=== PATIENT | female | born 1935 | race Caucasian/White ===

== ENCOUNTER → 2016-08-15 11:08 | Outpatient (CLI) | payer MEDICARE, OTHER ==
[2016-05-07 14:14] VITALS: BMI 29.8
[~2016-08-15 11:08] MED LIST: ATIVAN1 MG PO; CELEXA10 MG PO; CELEXA40 MG PO; DILAUDID2 MG PO; FLAGYL500 MG PO; LEVAQUIN500 MG PO; MOBIC7.5 MG PO; MULTIPLE VITAMI1 TA1 PO; PERCOCET 5/3251 TA1 PO; PRILOSEC20 MG PO; ULTRAM50 MG PO; VITAMIN E PO; XARELTO15 MG PO; XARELTO20 MG PO; ZOFRAN ODT4 MG/UDTAB PO
== END | disposition home or self-care (01) ==
LOC: D.MRI 11:08
DX: M75.102 Unspecified rotator cuff tear or rupture of left shoulder, not specified as traumatic (principal)

== ENCOUNTER 2016-11-05 10:47 | Outpatient (CLI) | payer MEDICARE, OTHER ==
[~2016-11-05] VITALS: Ht 170.2 cm; Wt 86.4 kg
[2016-11-05] MEDS ORDERED: CYMBALTA60 MG PO (11:11)
[2016-11-05 11:19] VITALS: BP 127/76; Ht 170.2 cm; Wt 86.4 kg
== END 2016-11-05 11:32 | disposition home or self-care (01) ==
LOC: D.OPS 10:47
DX: M81.0 Age-related osteoporosis without current pathological fracture (principal)

== ENCOUNTER 2017-05-12 12:17 | Outpatient (CLI) | payer MEDICARE, OTHER ==
[~2017-05-12] VITALS: Ht 170.2 cm; Wt 86.4 kg
[~2017-05-12 12:17] MED LIST changes: +CYMBALTA60 MG PO
[2017-05-12] MEDS ORDERED: ATIVAN1 MG PO (12:38)
[2017-05-12] MEDS ORDERED: CELEXA20 MG PO (12:38)
[2017-05-12 12:39] VITALS: BP 130/83; Ht 170.2 cm; Wt 86.4 kg
== END 2017-05-12 12:56 | disposition home or self-care (01) ==
LOC: D.OPS 12:17
DX: M81.0 Age-related osteoporosis without current pathological fracture (principal)

== ENCOUNTER 2017-10-03 19:05 | Inpatient (IN) | payer MEDICARE, OTHER ==
[~2017-10-03] VITALS: Ht 170.2 cm; Wt 88.2 kg
[~2017-10-03 19:05] MED LIST changes: +CELEXA20 MG PO
[2017-10-03 19:37] LABS: BASOPHILS 0.2 % (0-2); EOSINOPHILS 1.6 % (0-7); HEMOGLOBIN 15.5 g/dL (12-16); IMMATURE GRANULOCYTES 0.2 % (0-5); LYMPHOCYTES 29.6 % (15-50); MCH 33.2 pg (26.0-34.0); MCHC 34.4 g/dL (31.0-37.0); MCV 96.4 fL (80.0-100.0); MEAN PLATELET VOLUME 10.9 fL (7.4-10.4); MONOCYTES 7.9 % (2-11); NEUTROPHILS 60.5 % (40-80); PLATELET COUNT 158 10x3/uL (130-400); RBC 4.67 10x6/uL (4.00-5.40); RDW 12.5 % (11.5-14.5); WBC 5.5 10x3/uL (4.8-10.8)
[2017-10-03 19:39] LABS: APPEARANCE CLEAR (CLEAR); BILIRUBIN NEGATIVE (NEGATIVE); COLOR STRAW (YELLOW); GLUCOSE NEGATIVE (NEGATIVE); KETONE NEGATIVE (NEGATIVE); NITRITE NEGATIVE (NEGATIVE); PROTEIN NEGATIVE (NEGATIVE); UROBILINOGEN NORMAL (NORMAL)
[2017-10-03 19:42] LABS: EPITHELIAL CELLS 0-5 /hpf (0-5); RED CELLS - URINE 0-5 /hpf (0-5)
[2017-10-03 19:43] LABS: BACTERIA FEW /hpf (NONE SEEN)
[2017-10-03 19:56] LABS: BILIRUBIN - TOTAL 0.34 mg/dL (0.2-1.3); CARBON DIOXIDE 25.8 mmol/L (21.0-32.0); CREATININE - SERUM 1.1 mg/dL (0.6-1.3); POTASSIUM - SERUM 3.8 mmol/L (3.5-5.1); PROTEIN - SERUM 7.1 g/dL (6.4-8.2)
[2017-10-04 00:24] VITALS: BP 134/70; BMI 29.8
[2017-10-04 04:00] VITALS: BP 112/56
[2017-10-04 06:41] LABS: BASOPHILS 0.2 % (0-2); EOSINOPHILS 0.5 % (0-7); HEMATOCRIT 39.2 % (36.0-48.0); HEMOGLOBIN 13.1 g/dL (12-16); IMMATURE GRANULOCYTES 0.2 % (0-5); LYMPHOCYTES 9.3 % (15-50); MCH 32.3 pg (26.0-34.0); MCHC 33.4 g/dL (31.0-37.0); MCV 96.8 fL (80.0-100.0); MEAN PLATELET VOLUME 10.8 fL (7.4-10.4); MONOCYTES 5.4 % (2-11); NEUTROPHILS 84.4 % (40-80); PLATELET COUNT 134 10x3/uL (130-400); RBC 4.05 10x6/uL (4.00-5.40); RDW 12.5 % (11.5-14.5); WBC 5.6 10x3/uL (4.8-10.8)
[2017-10-04 07:12] LABS: ALBUMIN 3.3 g/dL (3.4-5.0); ANION GAP 10.9 mmol/L (8-16); BILIRUBIN - TOTAL 0.6 mg/dL (0.2-1.3); CALCIUM 8.3 mg/dL (8.5-10.1); CARBON DIOXIDE 26.5 mmol/L (21.0-32.0); POTASSIUM - SERUM 4.4 mmol/L (3.5-5.1); PROTEIN - SERUM 5.5 g/dL (6.4-8.2)
[2017-10-04 08:44] VITALS: BP 120/54
[2017-10-04 09:12] VITALS: Ht 170.2 cm; Wt 88.2 kg
[2017-10-04 11:42] VITALS: BP 105/49
[2017-10-04 15:23] VITALS: BP 103/54
[2017-10-04 20:00] VITALS: BP 135/68
[2017-10-05 04:00] VITALS: BP 107/54
[2017-10-05 06:18] LABS: BASOPHILS 0.2 % (0-2); EOSINOPHILS 1.5 % (0-7); HEMATOCRIT 36.2 % (36.0-48.0); HEMOGLOBIN 12.2 g/dL (12-16); IMMATURE GRANULOCYTES 0.2 % (0-5); LYMPHOCYTES 27.8 % (15-50); MCH 32.8 pg (26.0-34.0); MCHC 33.7 g/dL (31.0-37.0); MCV 97.3 fL (80.0-100.0); MEAN PLATELET VOLUME 10.8 fL (7.4-10.4); MONOCYTES 6.9 % (2-11); NEUTROPHILS 63.4 % (40-80); PLATELET COUNT 123 10x3/uL (130-400); RBC 3.72 10x6/uL (4.00-5.40); RDW 12.6 % (11.5-14.5); WBC 4.8 10x3/uL (4.8-10.8)
[2017-10-05 06:33] LABS: CALCIUM 7.5 mg/dL (8.5-10.1); CARBON DIOXIDE 26.3 mmol/L (21.0-32.0); CREATININE - SERUM 1.1 mg/dL (0.6-1.3)
[2017-10-05 06:37] LABS: POTASSIUM - SERUM 3.3 mmol/L (3.5-5.1)
[2017-10-05 08:19] VITALS: BP 119/64
[2017-10-05 12:00] VITALS: BP 155/81
[2017-10-05 15:00] VITALS: BP 125/63
[2017-10-05 20:50] VITALS: BP 126/56
[2017-10-06 05:27] LABS: BASOPHILS 0 % (0-2); EOSINOPHILS 1.9 % (0-7); HEMATOCRIT 35.9 % (36.0-48.0); HEMOGLOBIN 12.2 g/dL (12-16); LYMPHOCYTES 26.5 % (15-50); MCH 32.8 pg (26.0-34.0); MCV 96.5 fL (80.0-100.0); MEAN PLATELET VOLUME 10.6 fL (7.4-10.4); MONOCYTES 8.8 % (2-11); NEUTROPHILS 62.8 % (40-80); PLATELET COUNT 119 10x3/uL (130-400); RBC 3.72 10x6/uL (4.00-5.40); RDW 12.6 % (11.5-14.5); WBC 4.3 10x3/uL (4.8-10.8)
[2017-10-06 05:30] VITALS: BP 128/64
[2017-10-06 05:41] LABS: APTT 29.3 SECONDS (22.8-39.4); INR 1.19 (0.85-1.17); PROTIME 14.6 SECONDS (11.6-15.0)
[2017-10-06 06:24] LABS: ALBUMIN 2.9 g/dL (3.4-5.0); ANION GAP 9.5 mmol/L (8-16); BILIRUBIN - DIRECT 0.06 mg/dL (0.00-0.30); BILIRUBIN - INDIRECT 0.24 mg/dL (0.00-1.00); BILIRUBIN - TOTAL 0.3 mg/dL (0.2-1.3); CALCIUM 7.7 mg/dL (8.5-10.1); CARBON DIOXIDE 25.1 mmol/L (21.0-32.0); POTASSIUM - SERUM 3.6 mmol/L (3.5-5.1); PROTEIN - SERUM 5.3 g/dL (6.4-8.2)
[2017-10-06 07:43] VITALS: BP 126/64
[2017-10-06 15:50] VITALS: BP 145/80
[2017-10-06 20:00] VITALS: BP 115/69
[2017-10-07] VITALS: BP 141/68
[2017-10-07 08:02] VITALS: BP 148/81
[2017-10-07] MEDS ORDERED: PEPCID20 MG PO (08:04)
[2017-10-07] MEDS ORDERED: FLORAJEN3 CAPS460 MG PO (08:04)
[2017-10-07] MEDS ORDERED: CARAFATE1 G PO (08:05)
[2017-10-07] MEDS ORDERED: AUGMENTIN 875-11 TAB PO (08:05)
[2017-10-07] MEDS ORDERED: ZOFRAN4 MG PO (08:06)
== END 2017-10-07 11:08 | disposition home or self-care (01) | DRG 391 ==
LOC: D.ER 19:05 → D.M2 22:25
PROVIDERS: Family Medicine; Internal Medicine Gastroenterology
PROC: 0DB78ZX Excision of Stomach, Pylorus, Via Natural or Artificial Opening Endoscopic, Diagnostic (ICD-10-PCS; 2017-10-06)
PROC: 0DB58ZX Excision of Esophagus, Via Natural or Artificial Opening Endoscopic, Diagnostic (ICD-10-PCS; principal; 2017-10-06 10:45)
DX: K57.92 Diverticulitis of intestine, part unspecified, without perforation or abscess without bleeding (principal); K29.01 Acute gastritis with bleeding; K29.80 Duodenitis without bleeding; N20.0 Calculus of kidney; F41.9 Anxiety disorder, unspecified; F32.9 Major depressive disorder, single episode, unspecified; I72.8 Aneurysm of other specified arteries; K44.9 Diaphragmatic hernia without obstruction or gangrene; K22.2 Esophageal obstruction

== ENCOUNTER 2017-10-23 08:17 | Emergency (ER) | payer MEDICARE, OTHER ==
[2017-10-04 09:12] VITALS: BMI 29.8
[~2017-10-23 08:17] MED LIST changes: +AUGMENTIN 875-11 TAB PO; +CARAFATE1 G PO; +FLORAJEN3 CAPS460 MG PO; +PEPCID20 MG PO; +ZOFRAN4 MG PO
[2017-10-23 09:02] LABS: BASOPHILS 0 % (0-2); EOSINOPHILS 0.4 % (0-7); HEMATOCRIT 41.9 % (36.0-48.0); HEMOGLOBIN 14.6 g/dL (12-16); IMMATURE GRANULOCYTES 0.1 % (0-5); LYMPHOCYTES 10.7 % (15-50); MCH 32.9 pg (26.0-34.0); MCHC 34.8 g/dL (31.0-37.0); MCV 94.4 fL (80.0-100.0); MEAN PLATELET VOLUME 10.5 fL (7.4-10.4); MONOCYTES 5.4 % (2-11); NEUTROPHILS 83.4 % (40-80); RBC 4.44 10x6/uL (4.00-5.40); RDW 12.7 % (11.5-14.5); WBC 9.3 10x3/uL (4.8-10.8)
[2017-10-23 09:03] LABS: PLATELET COUNT 206 10x3/uL (130-400)
[2017-10-23 09:31] LABS: ALBUMIN 3.8 g/dL (3.4-5.0); ANION GAP 12.3 mmol/L (8-16); BILIRUBIN - TOTAL 0.53 mg/dL (0.2-1.3); CALCIUM 9.6 mg/dL (8.5-10.1); CARBON DIOXIDE 28.4 mmol/L (21.0-32.0); POTASSIUM - SERUM 3.7 mmol/L (3.5-5.1); PROTEIN - SERUM 6.9 g/dL (6.4-8.2)
[2017-10-23 11:08] LABS: APPEARANCE CLEAR (CLEAR); BILIRUBIN NEGATIVE (NEGATIVE); COLOR YELLOW (YELLOW); GLUCOSE NEGATIVE (NEGATIVE); KETONE NEGATIVE (NEGATIVE); NITRITE NEGATIVE (NEGATIVE); PROTEIN NEGATIVE (NEGATIVE); SPECIFIC GRAVITY 1.015 (1.005-1.020); UROBILINOGEN NORMAL (NORMAL)
[2017-10-23 11:09] LABS: BACTERIA FEW /hpf (NONE SEEN); EPITHELIAL CELLS 0-5 /hpf (0-5); MUCUS <1+ /lpf (NONE SEEN); RED CELLS - URINE 0-5 /hpf (0-5); WHITE CELLS - URINE 0-5 /hpf (0-5)
== END 2017-10-23 14:55 | disposition home or self-care (01) ==
LOC: D.ER 08:17
PROVIDERS: Emergency Medicine
DX: R10.9 Unspecified abdominal pain (principal)

== ENCOUNTER 2017-10-29 17:56 | Emergency (ER) | payer MEDICARE, OTHER ==
[~2017-10-29] VITALS: Ht 170.2 cm; Wt 86.4 kg
[2017-10-29 18:02] VITALS: Ht 170.2 cm; Wt 86.4 kg
[2017-10-29 18:41] LABS: BASOPHILS 0.2 % (0-2); EOSINOPHILS 0.8 % (0-7); HEMATOCRIT 41.5 % (36.0-48.0); HEMOGLOBIN 14.2 g/dL (12-16); LYMPHOCYTES 17.4 % (15-50); MCH 32.8 pg (26.0-34.0); MCHC 34.2 g/dL (31.0-37.0); MCV 95.8 fL (80.0-100.0); MEAN PLATELET VOLUME 10.2 fL (7.4-10.4); MONOCYTES 7.6 % (2-11); PLATELET COUNT 188 10x3/uL (130-400); RBC 4.33 10x6/uL (4.00-5.40); RDW 12.7 % (11.5-14.5); WBC 5.3 10x3/uL (4.8-10.8)
[2017-10-29 19:01] LABS: ALBUMIN 3.7 g/dL (3.4-5.0); ANION GAP 9.9 mmol/L (8-16); BILIRUBIN - TOTAL 0.33 mg/dL (0.2-1.3); CALCIUM 9.4 mg/dL (8.5-10.1); CREATININE - SERUM 1.1 mg/dL (0.6-1.3); POTASSIUM - SERUM 3.9 mmol/L (3.5-5.1); PROTEIN - SERUM 6.6 g/dL (6.4-8.2)
[2017-10-29 19:17] LABS: APPEARANCE CLEAR (CLEAR); BILIRUBIN NEGATIVE (NEGATIVE); COLOR DK YELLOW (YELLOW); GLUCOSE NEGATIVE (NEGATIVE); KETONE NEGATIVE (NEGATIVE); NITRITE NEGATIVE (NEGATIVE); PROTEIN TRACE mg/dL (NEGATIVE); SPECIFIC GRAVITY 1.015 (1.005-1.020); UROBILINOGEN NORMAL (NORMAL)
[2017-10-29 19:29] LABS: BACTERIA FEW /hpf (NONE SEEN); EPITHELIAL CELLS OCC /hpf (0-5); RED CELLS - URINE OCC /hpf (0-5); WHITE CELLS - URINE 0-5 /hpf (0-5)
[2017-10-29] MEDS ORDERED: ZOFRAN4 MG PO (23:10)
[2017-10-29] MEDS ORDERED: ULTRAM50 MG PO (23:10)
[2017-10-29] MEDS ORDERED: FLAGYL500 MG PO (23:10)
[2017-10-30 00:43] VITALS: BP 136/77
== END 2017-10-30 00:43 | disposition home or self-care (01) ==
LOC: D.ER 17:56
PROVIDERS: Family Medicine
DX: A04.72 Enterocolitis due to Clostridium difficile, not specified as recurrent (principal); Z87.19 Personal history of other diseases of the digestive system

== ENCOUNTER → 2017-11-16 13:00 | Outpatient (CLI) | payer MEDICARE, OTHER ==
[2017-10-29 18:02] VITALS: BMI 29.8
[~2017-11-16 13:00] MED LIST changes: +LEVSIN/ANASP0.125 MG PO; +ZOSYN 3.3753.375 G1 IV
== END | disposition home or self-care (01) ==
LOC: D.CT 13:00
DX: R10.9 Unspecified abdominal pain (principal); R10.2 Pelvic and perineal pain

== ENCOUNTER 2017-11-23 11:31 | Inpatient (IN) | payer MEDICARE, OTHER ==
[~2017-11-23] VITALS: Ht 170.2 cm; Wt 81.6 kg
[~2017-11-23 11:31] MED LIST changes: -LEVSIN/ANASP0.125 MG PO; -ZOSYN 3.3753.375 G1 IV
[2017-11-23 12:06] LABS: APPEARANCE CLEAR (CLEAR); BACTERIA FEW /hpf (NONE SEEN); BILIRUBIN NEGATIVE (NEGATIVE); COLOR STRAW (YELLOW); EPITHELIAL CELLS OCC /hpf (0-5); GLUCOSE NEGATIVE (NEGATIVE); KETONE NEGATIVE (NEGATIVE); NITRITE NEGATIVE (NEGATIVE); PROTEIN NEGATIVE (NEGATIVE); RED CELLS - URINE OCC /hpf (0-5); SPECIFIC GRAVITY 1.005 (1.005-1.020); UROBILINOGEN NORMAL (NORMAL); WHITE CELLS - URINE OCC /hpf (0-5)
[2017-11-23 12:21] LABS: INR 1.12 (0.85-1.17)
[2017-11-23 12:27] LABS: BASOPHILS 0.1 % (0-2); EOSINOPHILS 0.4 % (0-7); HEMOGLOBIN 14.8 g/dL (12-16); IMMATURE GRANULOCYTES 0.1 % (0-5); LYMPHOCYTES 9.4 % (15-50); MCH 32.7 pg (26.0-34.0); MCHC 34.4 g/dL (31.0-37.0); MCV 95.1 fL (80.0-100.0); MEAN PLATELET VOLUME 10.6 fL (7.4-10.4); MONOCYTES 6.5 % (2-11); NEUTROPHILS 83.5 % (40-80); PLATELET COUNT 185 10x3/uL (130-400); RBC 4.52 10x6/uL (4.00-5.40); RDW 12.7 % (11.5-14.5); WBC 8.3 10x3/uL (4.8-10.8)
[2017-11-23 12:40] LABS: CKMB 0.9 U/L (0.0-3.6); CREATINE KINASE 98 UL (21-215); LIPASE 163 U/L (73-393); PRO BNP 112 pg/mL (0-450); TROPONIN-I < 0.017 ng/mL (0.000-0.060)
[2017-11-23 12:42] LABS: ALBUMIN 3.7 g/dL (3.4-5.0); ANION GAP 11.6 mmol/L (8-16); BILIRUBIN - TOTAL 0.35 mg/dL (0.2-1.3); CALCIUM 9.5 mg/dL (8.5-10.1); CREATININE - SERUM 1.1 mg/dL (0.6-1.3); POTASSIUM - SERUM 3.6 mmol/L (3.5-5.1); PROTEIN - SERUM 6.6 g/dL (6.4-8.2)
[2017-11-23 12:45] VITALS: BP 126/82
[2017-11-23 14:30] VITALS: BP 127/76
[2017-11-23] MEDS ORDERED: LEVSIN/ANASP0.125 MG PO (14:38)
[2017-11-24 04:28] VITALS: BP 106/57
[2017-11-24 06:25] LABS: BASOPHILS 0 % (0-2); EOSINOPHILS 1.2 % (0-7); HEMATOCRIT 38.2 % (36.0-48.0); IMMATURE GRANULOCYTES 0.2 % (0-5); LYMPHOCYTES 20.8 % (15-50); MCH 32.5 pg (26.0-34.0); MCV 95.5 fL (80.0-100.0); MONOCYTES 8.3 % (2-11); NEUTROPHILS 69.5 % (40-80); PLATELET COUNT 171 10x3/uL (130-400); RDW 13.1 % (11.5-14.5)
[2017-11-24 06:34] VITALS: BP 154/84; BMI 28.2
[2017-11-24 06:43] LABS: ANION GAP 10.5 mmol/L (8-16); BILIRUBIN - TOTAL 0.31 mg/dL (0.2-1.3); CALCIUM 8.1 mg/dL (8.5-10.1); CARBON DIOXIDE 26.2 mmol/L (21.0-32.0); POTASSIUM - SERUM 3.7 mmol/L (3.5-5.1); PROTEIN - SERUM 5.4 g/dL (6.4-8.2)
[2017-11-24 06:44] LABS: CREATININE - SERUM 0.8 mg/dL (0.6-1.3); WBC 6.1 10x3/uL (4.8-10.8)
[2017-11-24 08:01] VITALS: BP 128/69
[2017-11-24 09:31] VITALS: Ht 170.2 cm; Wt 81.6 kg
[2017-11-24 13:06] VITALS: BP 138/78
[2017-11-24 16:25] VITALS: BP 121/71
[2017-11-24 21:02] VITALS: BP 112/61
[2017-11-25 04:03] VITALS: BP 150/79
[2017-11-25 06:09] LABS: BASOPHILS 0 % (0-2); EOSINOPHILS 2.3 % (0-7); HEMATOCRIT 37.6 % (36.0-48.0); HEMOGLOBIN 12.6 g/dL (12-16); IMMATURE GRANULOCYTES 0.3 % (0-5); LYMPHOCYTES 29.7 % (15-50); MCH 31.8 pg (26.0-34.0); MCHC 33.5 g/dL (31.0-37.0); MCV 94.9 fL (80.0-100.0); MEAN PLATELET VOLUME 10.5 fL (7.4-10.4); MONOCYTES 8.9 % (2-11); NEUTROPHILS 58.8 % (40-80); PLATELET COUNT 173 10x3/uL (130-400); RBC 3.96 10x6/uL (4.00-5.40)
[2017-11-25 06:34] LABS: ALBUMIN 2.9 g/dL (3.4-5.0); ALKALINE PHOSPHATASE 31 U/L (46-116); ALT (SGPT) 17 U/L (10-68); CALC OSMOLALITY 283 mosm/kg (275-300); CALCIUM 7.8 mg/dL (8.5-10.1); CARBON DIOXIDE 27.9 mmol/L (21.0-32.0); CHLORIDE - SERUM 109 mmol/L (98-107); CREATININE - SERUM 0.7 mg/dL (0.6-1.3); GLUCOSE 109 mg/dL (74-106); POTASSIUM - SERUM 3.5 mmol/L (3.5-5.1); PROTEIN - SERUM 5.4 g/dL (6.4-8.2); SODIUM 143 mmol/L (136-145); eGFR NON AFRICAN AMERICAN 85 mL/min (90-120)
[2017-11-25 06:35] LABS: WBC 3.8 10x3/uL (4.8-10.8)
[2017-11-25 06:36] LABS: UREA NITROGEN 6 mg/dL (7-18)
[2017-11-25 08:10] VITALS: BP 150/83
[2017-11-25 12:47] VITALS: BP 148/79; BP 97/43
[2017-11-25 20:00] VITALS: BP 127/68
[2017-11-26 04:00] VITALS: BP 167/79
[2017-11-26 07:47] VITALS: BP 158/77
[2017-11-26 12:13] VITALS: BP 150/64
[2017-11-26 15:58] VITALS: BP 192/82
[2017-11-26 20:00] VITALS: BP 155/67
[2017-11-27 04:00] VITALS: BP 139/66
[2017-11-27 05:16] LABS: ANION GAP 9.1 mmol/L (8-16); CALCIUM 8.2 mg/dL (8.5-10.1); CARBON DIOXIDE 29.3 mmol/L (21.0-32.0); POTASSIUM - SERUM 3.4 mmol/L (3.5-5.1)
[2017-11-27 05:18] LABS: BASOPHILS 0.2 % (0-2); EOSINOPHILS 1.3 % (0-7); HEMATOCRIT 36.7 % (36.0-48.0); HEMOGLOBIN 12.3 g/dL (12-16); IMMATURE GRANULOCYTES 0.2 % (0-5); LYMPHOCYTES 16.5 % (15-50); MCH 31.6 pg (26.0-34.0); MCHC 33.5 g/dL (31.0-37.0); MCV 94.3 fL (80.0-100.0); MEAN PLATELET VOLUME 10.5 fL (7.4-10.4); MONOCYTES 7.5 % (2-11); NEUTROPHILS 74.3 % (40-80); PLATELET COUNT 176 10x3/uL (130-400); RBC 3.89 10x6/uL (4.00-5.40); RDW 12.9 % (11.5-14.5)
[2017-11-27 05:19] LABS: WBC 6.2 10x3/uL (4.8-10.8)
[2017-11-27] MEDS ORDERED: ZOSYN 3.3753.375 G1 IV ×2 (08:04→08:11)
[2017-11-27] MEDS ORDERED: CARAFATE1 G PO (08:05)
[2017-11-27 08:58] VITALS: BP 146/73
== END 2017-11-27 10:58 | disposition home health service (06) | DRG 392 ==
LOC: D.ER 11:31 → D.MS 15:41 → D.EDHOLD 15:41 → D.MS 19:52
PROVIDERS: Family Medicine; Internal Medicine Gastroenterology
PROC: 02HV33Z Insertion of Infusion Device into Superior Vena Cava, Percutaneous Approach (ICD-10-PCS; principal; 2017-11-26)
PROC: B548ZZA Ultrasonography of Superior Vena Cava, Guidance (ICD-10-PCS; 2017-11-26)
DX: K57.32 Diverticulitis of large intestine without perforation or abscess without bleeding (principal); F32.9 Major depressive disorder, single episode, unspecified; F41.9 Anxiety disorder, unspecified

== ENCOUNTER 2018-01-03 17:51 | Emergency (ER) | payer MEDICARE, OTHER ==
[~2018-01-03] VITALS: Ht 170.2 cm; Wt 83.6 kg
[~2018-01-03 17:51] MED LIST changes: +LEVSIN/ANASP0.125 MG PO; +ZOSYN 3.3753.375 G1 IV
[2018-01-03 18:01] VITALS: Ht 170.2 cm; Wt 83.6 kg
[2018-01-03 19:37] LABS: BASOPHILS 0.2 % (0-2); EOSINOPHILS 1.8 % (0-7); HEMATOCRIT 40.6 % (36.0-48.0); HEMOGLOBIN 13.9 g/dL (12-16); IMMATURE GRANULOCYTES 0.2 % (0-5); LYMPHOCYTES 22.5 % (15-50); MCH 32.4 pg (26.0-34.0); MCHC 34.2 g/dL (31.0-37.0); MCV 94.6 fL (80.0-100.0); MEAN PLATELET VOLUME 10.1 fL (7.4-10.4); MONOCYTES 6.8 % (2-11); NEUTROPHILS 68.5 % (40-80); PLATELET COUNT 172 10x3/uL (130-400); RBC 4.29 10x6/uL (4.00-5.40); RDW 13.4 % (11.5-14.5); WBC 5.6 10x3/uL (4.8-10.8)
[2018-01-03 19:52] LABS: APPEARANCE CLEAR (CLEAR); BILIRUBIN NEGATIVE (NEGATIVE); COLOR YELLOW (YELLOW); GLUCOSE NEGATIVE (NEGATIVE); KETONE NEGATIVE (NEGATIVE); NITRITE NEGATIVE (NEGATIVE); PH 7.5 (5.0-6.0); PROTEIN NEGATIVE (NEGATIVE); UROBILINOGEN NORMAL (NORMAL)
[2018-01-03 19:57] LABS: ALBUMIN 3.7 g/dL (3.4-5.0); ANION GAP 9.9 mmol/L (8-16); BILIRUBIN - TOTAL 0.21 mg/dL (0.2-1.3); CALCIUM 10.2 mg/dL (8.5-10.1); CARBON DIOXIDE 30.8 mmol/L (21.0-32.0); CREATININE - SERUM 1.1 mg/dL (0.6-1.3); POTASSIUM - SERUM 3.7 mmol/L (3.5-5.1)
[2018-01-03 20:05] LABS: THYROID STIMULATING HORMONE 1.56 uIU/mL (0.36-3.74)
[2018-01-03 22:08] VITALS: BP 163/90
== END 2018-01-03 21:03 | disposition home or self-care (01) ==
LOC: D.ER 17:51
PROVIDERS: Family Medicine
DX: F41.9 Anxiety disorder, unspecified (principal)

== ENCOUNTER → 2018-01-05 12:57 | Outpatient (CLI) | payer MEDICARE, OTHER ==
[~2018-01-05] VITALS: Ht 170.2 cm; Wt 81.8 kg
[~2018-01-05 12:57] MED LIST changes: +ATIVAN0.5 MG PO; +B COMPLEX SL; +BUSPAR10 MG PO; +BUSPAR5 MG PO; +CBD HEMP OIL SL; +COLACE100 MG PO; +FAMOTIDINE10 MG PO; +FIBER THERAPY1368 GM PO; +GAS-X125 M1 PO; +VITAMIN D3 PO
[2018-01-05 14:11] VITALS: BP 139/85; Ht 170.2 cm; Wt 81.8 kg
== END | disposition home or self-care (01) ==
LOC: D.OPS 12-24 13:30
DX: M81.0 Age-related osteoporosis without current pathological fracture (principal); Z01.812 Encounter for preprocedural laboratory examination

== ENCOUNTER 2018-02-13 21:08 | Inpatient (IN) | payer MEDICARE, OTHER ==
[~2018-02-13] VITALS: Ht 170.2 cm; Wt 81.6 kg
--- NOTE | ~2018-02-13 | HEMODYNAMI ---
PATIENT:MATEUSZ ORONA MEDICAL RECORD: [id number] : 39 LOCATION:D.[facility] ADMISSION DATE: 02/14/18 Generatedon:03/05/201811:31 Patient name: MATEUSZ ORONA Patient #: [id number] SSN: : 1935 Date of study: 03/05/2018 Page: Of Hemodynamic Procedure Report Patient Data Patient Demographics Procedure consent was obtained First Name: MATEUSZ Gender: Female Last Name: YEYO : 1935 Middle Initial: MATEUSZ Age: 82 year(s) Patient #: [id number] Race: Unknown Additional ID: [id number] Contact details Address: [address] [place] [address] State: [place] City: [facility] Zip code: [address] Past Medical History Allergies Allergen Reaction Date Comments Reported Codeine 02/24/2018 Sulfa drugs 02/24/2018 Sulfa drugs 03/05/2018 Codeine 03/05/2018 Other allergy 03/05/2018 levaquin and oxycodone Admission Admission Data Admission Date: 02/14/2018 Admission Time: 0:38 Room #: [facility] Height (in.): 67 BSA: 1.93 (m2) Height (cm.): 170.18 BMI: 28.19 (kg/m2) Weight (lbs.): 180 Weight (kg.): 81.65 Procedure Procedure Types Cath Procedure Peripheral Cath Diagnostic Procedure Abscess Abscess Drain Injection Procedure Description Procedure Date Procedure Date: 03/05/2018 Procedure Start Time: 11:20 Procedure Staff Name Function Pratik Wells MD Performing Physician Zachary Zheng RT Monitor Ranjana Grimes RN Nurse Procedure Data Cath Procedure Fluoroscopy Diagnostic fluoroscopy Total fluoroscopy Time: 1 time: 1 min min Diagnostic fluoroscopy Total fluoroscopy dose: 35 dose: 35 mGy mGy Contrast Material Contrast Material Type Amount (ml) Isovue 300 12 Procedure Medications Medication Administration Route Dosage Oxygen etCO2 Nasal cannula 4 l/min Lidocaine 1% added to field 20 Fentanyl I.V. 50 mcg Versed I.V. 1 mg 0.9% NaCl I.V. 250 ml Fentanyl I.V. 50 mcg Versed I.V. 1 mg Hemodynamics Rest BSA: 1.93 (m2) O2 Consumption: Estimated: 205.1 (ml/min) O2 Consumption indexed: Estimated:106.27 (ml/min/m) Heart Rate: 113 (bpm) Snapshots Pre Cath Intra NCS Post Cath Vital Signs Time Heart Resp SPO2 etCO2 NIBP (mmHg) Rhythm Pain Sedation Rate (ipm) (%) (mmHg) Status Level (bpm) 11:02:14 97 7 100 17.3 137/69(109) NSR 0 (11) 9(A) , No pain 11:06:28 100 100 17.3 125/69(99) ST 0 (11) 9(A) , No pain 11:10:48 104 9 98 17.3 143/65(90) ST 0 (11) 9(A) , No pain 11:15:02 99 15 94 16.5 120/66(98) NSR 0 (11) 9(A) , No pain 11:19:22 96 20 100 18 122/64(89) NSR 0 (11) 8(A) , No pain 11:23:38 98 6 100 17.3 129/73(109) NSR 0 (11) 8(A) , No pain 11:27:58 102 24 97 22.6 133/68(105) NSR 0 (11) 9(A) , No pain Medications Time Medication Route Dose Verified Delivered Reason Notes Effectiv eness by by 11:03:23 Oxygen etCO2 4l/min Pratik Chavez used for Nasal Cornelio Wells RN procedure cannula 11:03:36 Lidocaine added 20ml Pratik Christie used for 1% to vial Priscilla Wells MD procedure field SANTOS 11:19:00 Fentanyl I.V. 50 mcg Pratik Chavez for Dozing Cornelio Wells RN sedation intermittently MD @ 11:24:01 11:19:10 Versed I.V. 1 mg Pratik Chavez for Dozing Cornelio Wells RN sedation intermittently MD @ 11:24:04 11:23:32 0.9% NaCl I.V. 250ml Pratik Chavez used for Cornelio Wells RN procedure MD 11:23:39 Fentanyl I.V. 50 mcg Pratik Chavez for Cornelio Wells RN sedation 11:23:48 Versed I.V. 1 mg Pratik Chavez for Cornelio Wells RN sedation MD Procedure Log Time Note 10:20:03 Patient Height : 67 inches 10:20:03 Patient Weight : 180 lbs 10:46:51 Zachary Zheng RT (R) (CV) sent for patient. Start room use. 10:47:00 Time tracking: Regular hours (M-F 7:00 - 5:00) 10:47:17 Plan of Care:Hemodynamics will remain stable., Cardiac rhythm will remain stable., Comfort level will be maintained., Respiratory function will remain adequate., Patient/ family verbilizes understanding of procedure., Procedure tolerated without complication., Recovers from procedure without complications.. 10:47:24 Patient received from Med/Surg to CCL 1 Alert and oriented. Tansferred to table in Supine position. 10:47:26 Correct patient and procedure confirmed by team. 10:47:31 Signed procedure consent form obtained from patient. 10:47:32 ECG and BP/O2 sat monitors applied to patient. 10:47:35 - 10:47:39 H&P Date Dictated: 03/05/2018 Within 30 days and on chart.. 10:47:39 Pre-procedure instructions explained to patient. 10:47:40 Pre-op teaching completed and patient verbalized understanding. 10:47:41 Family in waiting room. 10:47:42 Patient NPO since Midnight. 10:48:03 Patient allergic to Sulfa drugs 10:48:10 Patient allergic to Codeine 10:48:40 Patient allergic to Other allergylevaquin and oxycodone 10:48:43 Is the patient allergic to Iodine/contrast media? No. 10:48:44 Is patient on blood thinner?No 10:48:50 Patient diabetic? No. 10:48:53 - 10:48:55 ----Pre-sedation anethsthesia assessment.---- 10:48:59 Previous problem with sedation/anesthesia? No ? 10:49:00 Snore? No 10:49:02 Sleep apnea? No 10:49:06 Deviated septum? No 10:49:08 Opens mouth fully? No 10:49:12 Sticks out tongue? Yes 10:49:32 Dentures? Yes not in 10:49:43 IV patent on arrival in right antecubital with 0.9% NaCl at [facility]. 10:49:44 Sharps counted by scrub and verified by R.N. 10:49:44 Alarms reviewed by R. N. 10:49:50 Right Arm area was prepped with chlora-prep and draped in sterile fashion 10:49:55 Use device set IR Diagnostic 10:49:59 Bag Decanter (2002S) opened to sterile field. 10:50:00 Sterile Angiographic Pack opened to sterile field. 10:50:00 Tegaderm 4 x 4 ([id number]) opened to sterile field. 11:00:56 Vital chart was started 11:03:01 Baseline sample Acquired. 11:03:23 Oxygen 4l/min etCO2 Nasal cannula was administered by Kathy Grimes RN; used for procedure; 11:03:36 Lidocaine 1% 20ml vial added to field was administered by Pratik Wells MD; used for procedure; 11:14:33 Left abdomen area was prepped with chlora-prep and draped in sterile fashion 11:14:36 --------ALL STOP TIME OUT------ 11:14:36 Final Timeout: patient, procedure, and site verified with staff and physician. All members of the team are in agreement. 11:14:39 Left abdomen site verified by team. 11:14:47 Sedation plan: IV Moderate Sedation Medication:Versed, Fentanyl 11:15:06 Procedure started. 11:15:06 Full Disclosure recording started 11:19:00 Fentanyl 50 mcg I.V. was administered by Kathy Cornelio RN; for sedation; 11:19:10 Versed 1 mg I.V. was administered by Kathy Grimes RN; for sedation; 11:20:16 BENTSON 145cm wire ([id number]) opened to sterile field. 11:20:47 Local anesthetic to Abdominal area with Lidocaine 1% by Pratik Wells MD.INITIAL ACCESS ONLY 11:20:54 Abscession 10 FR drainage catheter ([id number]) opened to sterile field. 11:20:59 BAG, DRAINAGE EMPTY 600ML W/AMANDA ([id number]) opened to sterile field. 11:22:49 STOPCOCK 3-Way Large Bore ([id number]) opened to sterile field. 11:22:59 SUTURE ETHILON 2-0 BLK MONO FS opened to sterile field. 11:23:32 0.9% NaCl 250ml I.V. was administered by Kathy Grimes RN; used for procedure; 11:23:39 Fentanyl 50 mcg I.V. was administered by Kathy Grimes RN; for sedation; 11:23:48 Versed 1 mg I.V. was administered by Kathy Grimes RN; for sedation; 11:24:01 Effectiveness of Fentanyl delivered @ 11:19:00 is: Dozing intermittentl y 11:24:04 Effectiveness of Versed delivered @ 11:19:10 is: Dozing intermittently 11:24:18 Tegaderm 6 x 8 (1628) opened to sterile field. 11:27:33 Procedure ended.(Physican Out) 11:27:56 Fluoroscopy time 01.00 minutes. 11:28:00 Fluoroscopy dose: 35 mGy 11:28:00 Flurop Dose total: 35 11:28:06 Contrast amount:Isovue 300 12ml. 11:28:08 Sharps counted by scrub and verified by R.N. 11:28:10 Insertion/operative site no bleeding no hematoma. 11:28:15 Post-op/insertion site Left Abdominal area dressed using a 4 x 4,Statlock and Tegaderm. 11:30:03 Post Abdominal area:stable 11:30:05 Procedure and supply charges have been captured, reviewed, submitted an d are correct. 11:30:06 Post procedure instruction explained to patient.Patient verbalizes understanding. 11::49 Report given to Med/Surg. 11:30:52 Patient transfered to Med/Surg with Bed. 11:31:12 Vital chart was stopped Device Usage Item Name Manufacture Quantity Catalog Hospital Part Current Minima l Lot# / Number Charge Number Stock Stock Serial# Code Bag Decanter Microtek 1 [id number] 5 () Medical Inc. Sterile Cardinal 1 [id number] 240363 5 Angiographic Health Pack Tegaderm 4 x 3M 1 1626W [id number] 941715 069831 5 4 (1626W) BENTSON [employer] 1 [id number] 424085 979365 5 145cm wire (P70088) Abscession Angiodynamics 1 [id number] 895942 600315 738796 5 10 FR drainage catheter ([id number]) BAG, [facility] 1 [id number] 806859 849509 423877 5 DRAINAGE EMPTY 600ML W/AMANDA (LPB694) STOPCOCK [employer] 1 [id number] 721266 6950 852362 5 [id number] 3-Way Large Bore (N13109) SUTURE Ethicon 1 664H 501731 954663 5 ETHILON 2-0 BLK MONO FS Tegaderm 6 x 3M 1 1628 126592 663894 5 8 (1628) Signature Audit [place] Stage Time Signature Unsigned Intra-Procedure 03/05/2018 Zachary 11:31:10 AM Norm RT (R) (CV) Signatures Monitor : Zachary Signature : Norm RT Date : Time : [address] [address]
--- NOTE | ~2018-02-13 | MORECARE ---
CASE MANAGEMENT DISCHARGE SUMMARY PATIENT: MATEUSZ ORONA UNIT: [id number] ADM DATE: 02/14/18 AGE: 82 : 37 SEX: F ROOM/BED: D.2213 AUTHOR: SHEILA ROGERS PHYSICIAN: REFERRING PHYSICIAN: ALBERTINA PARK MD DATE OF SERVICE: 03/08/18 Discharge Plan Patient Name: MATEUSZ ORONA Facility: [facility]:[place] : 1935 Planned Disposition: Fdc Facility Anticipated Discharge Date: Discharge Date: Expected LOS: Initial Reviewer: [email or web address] Initial Review Date: 02/14/2018 Generated: 03/08/18 9:23 am Comments DCP- Discharge Planning Updated by [email or web address]: Corin Araya on 03/08/18 7:[address] IMM SERVED AND EXPLAINED DCP- Discharge Planning Updated by [email or web address]: Corin Araya on 03/03/18 1:[address] [place] is back and OK to go to a shelter at patient choice. is not requesting that she goes to [facility] inpatient rehab. 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 Patient lives independently at home with her and her daughter has been staying with her for the past 8 weeks to help out. Patient plans to go to [place] [facility] at discharge. She states that she has a cane and shower chair at home, but does not use either. CM will send referral to [facility] as requested. CM will continue to follow and assist with DC planning Car Designer: Corin Araya DCPIA - Discharge Planning Initial Assessment Updated by [email or web address]: Corin Araya on 02/16/18 3:36 pm * Is the patient Alert and Oriented? Yes * How many steps to enter\exit or inside your home? RAMP * PCP VIVIAN * Pharmacy [facility] * Preadmission Environment Home with Family * ADLs Independent * Equipment Cane Shower Chair * List name and contact numbers for known caregivers / representatives who currently or will assist patient after discharge: PINEDA (DAUGHTER) [phone] * Verbal permission to speak to the caregivers and representatives has been obtained from the patient. Yes * Community resources currently utilized None * Additional services required to return to the preadmission environment? Yes * Can the patient safely return to the preadmission environment? No * Has this patient been hospitalized within the prior 30 days at any hospital? No Last DP export: 03/03/18 2:03 Patient Name: MATEUSZ ORONA Page 15717 at 0824 All edits/amendments must be made on the electronic document DICTATION DATE: 03/08/18822 ICING MAKER: AIMEE 03/08/18822 RPT#: [id number] DC DATE: STATUS: ADM IN [facility] [address] [place] [address] END OF REPORT
--- NOTE | ~2018-02-13 | MORECARE ---
CASE MANAGEMENT DISCHARGE SUMMARY PATIENT: MATEUSZ ORONA UNIT: [id number] ADM DATE: 02/14/18 AGE: 82 : 37 SEX: F ROOM/BED: D.[facility]3 AUTHOR: SHEILA ROGERS PHYSICIAN: REFERRING PHYSICIAN: ALBERTINA PARK MD DATE OF SERVICE: 03/08/18 Discharge Plan Patient Name: MATEUSZ ORONA Facility: [facility]:[place] : 1935 Planned Disposition: Detention Facility Anticipated Discharge Date: Discharge Date: Expected LOS: Initial Reviewer: [email or web address] Initial Review Date: 02/14/2018 Generated: 03/08/18 2:20 pm Comments DCP- Discharge Planning Updated by [email or web address]: Corin Araya on 03/08/18 12:[address] Patient will be discharging to inpatient rehab today. and family at bedside DCP- Discharge Planning Updated by [email or web address]: Corin Araya on 03/08/18 7:[address] IMM SERVED AND EXPLAINED DCP- Discharge Planning Updated by [email or web address]: Corin Araya on 03/03/18 1:[address] [place] is back and OK to go to a snf at patient choice. is not requesting that she goes to [facility] inpatient re[facility]. 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 Patient lives independently at home with her and her daughter has been staying with her for the past 8 weeks to help out. Patient plans to go to [facility] at discharge. She states that she has a cane and shower chair at home, but does not use either. CM will send referral to [place] as requested. CM will continue to follow and assist with DC planning Broadcast Correspondent: Corin Araya DCPIA - Discharge Planning Initial Assessment Updated by [email or web address]: Corin Araya on 02/16/18 3:36 pm * Is the patient Alert and Oriented? Yes * How many steps to enter\exit or inside your home? RAMP * PCP [facility] * Preadmission Environment Home with Family * ADLs Independent * Equipment Cane Shower Chair * List name and contact numbers for known caregivers / representatives who currently or will assist patient after discharge: PINEDA (DAUGHTER) [phone] * Verbal permission to speak to the caregivers and representatives has been obtained from the patient. Yes * Community resources currently utilized None * Additional services required to return to the preadmission environment? Yes * Can the patient safely return to the preadmission environment? No * Has this patient been hospitalized within the prior 30 days at any hospital? No Last DP export: 03/08/18 7:24 Patient Name: MATEUSZ ORONA Page 66722 at 1320 All edits/amendments must be made on the electronic document DICTATION DATE: 03/08/18 1320 CUSTOM SKI MAKER: AIMEE 03/08/18 1320 RPT#: [id number] DC DATE: STATUS: ADM IN [facility] [address] [place] [address] END OF REPORT
--- NOTE | ~2018-02-13 | HEMODYNAMI ---
PATIENT:MATEUSZ ORONA MEDICAL RECORD: [id number] : 39 LOCATION:D.[facility] ADMISSION DATE: 02/14/18 Generatedon:02/24/201810:48 Patient name: MATEUSZ ORONA Patient #: [id number] SSN: : 1935 Date of study: 02/24/2018 Page: Of Hemodynamic Procedure Report Patient Data Patient Demographics Procedure consent was obtained First Name: MATEUSZ Gender: Female Last Name: YEYO : 1935 Middle Initial: MATEUSZ Age: 82 year(s) Patient #: [id number] Race: Unknown Additional ID: [id number] Contact details Address: [address] [place] [address] State: [place] City: [facility] Zip code: [address] Past Medical History Allergies Allergen Reaction Date Comments Reported Codeine 02/24/2018 Sulfa drugs 02/24/2018 Admission Admission Data Admission Date: 02/14/2018 Admission Time: 0:38 Room #: [id number] Height (in.): 67 BSA: 1.93 (m2) Height (cm.): 170.18 BMI: 28.19 (kg/m2) Weight (lbs.): 180 Weight (kg.): 81.65 Procedure Procedure Types Cath Procedure Peripheral Cath Diagnostic Procedure Program Manager Peripheral Procedures PICC PICC Line Placement Procedure Description Procedure Date Procedure Date: 02/24/2018 Procedure Start Time: 10:30 Procedure Staff Name Function Pratik Wells MD Performing Physician Kamala Quintana RT Hatchery Helper Tonja Barber RN Nurse Zachary Zheng RT Scrub Procedure Data Cath Procedure Fluoroscopy Diagnostic fluoroscopy Total fluoroscopy dose: 2 dose: 2 mGy mGy Procedure Medications Medication Administration Route Dosage Lidocaine 1% added to field 20 Heparin Flush Bag added to field 2 bags (1000units/500ml NS) Oxygen etCO2 Nasal cannula 3 l/min Versed I.V. 1 mg Fentanyl I.V. 50 mcg Hemodynamics Rest BSA: 1.93 (m2) O2 Consumption: Estimated: 203.97 (ml/min) O2 Consumption indexed : Estimated:105.68 (ml/min/m) Heart Rate: 112 (bpm) Snapshots Pre Cath Intra NCS Post Cath Vital Signs Time Heart Resp SPO2 etCO2 NIBP (mmHg) Rhythm Pain Sedation Rate (ipm) (%) (mmHg) Status Level (bpm) 10:14:21 108 96 15 165/102(123) NSR 0 (11) 10(A) , No pain 10:18:37 108 21 97 12.7 170/101(139) NSR 0 (11) 10(A) , No pain 10:22:51 107 22 95 1.5 164/101(126) NSR 0 (11) 10(A) , No pain 10:27:05 109 32 96 18.8 174/100(123) NSR 0 (11) 10(A) , No pain 10:32:04 107 10 12 Measuring NSR 0 (11) 10(A) , No pain 10:32:30 105 11 95 18.8 164/97(122) NSR 0 (11) 10(A) , No pain 10:36:46 104 18 95 21.8 166/92(118) NSR 0 (11) 10(A) , No pain 10:41:45 112 17 95 21.8 Measuring NSR 0 (11) 10(A) , No pain 10:41:52 110 17 95 21 158/98(124) NSR 0 (11) 10(A) , No pain 10:46:50 113 21 96 21 Measuring NSR 0 (11) 10(A) , No pain Medications Time Medication Route Dose Verified Delivered Reason Notes Effe ctiveness by by 10:16:30 Lidocaine 1% added 20ml Pratik Christie used for to vial Priscilla Wells MD procedure field SANTOS 10:16:42 Heparin Flush added 2 Pratik Christie used for Bag to bags Priscilla Wells MD procedure (1000units/500ml field SANTOS NS) 10:17:05 Oxygen etCO2 3 Pratik Evangelista Nasal l/min Sunil Wells RN cannula 10:31:21 Versed I.V. 1 mg Pratik Evangelista for Sunil Wells RN sedation 10:31:33 Fentanyl I.V. 50 Pratik Evangelista for mcg Sunil Wells RN sedation MD Procedure Log Time Note 9:54:49 Patient Height : 67 inches 9:54:53 Patient Weight : 180 lbs 10:11:08 Time tracking: Regular hours (M-F 7:00 - 5:00) 10:11:26 Plan of Care:Hemodynamics will remain stable., Cardiac rhythm will remain stable., Comfort level will be maintained., Respiratory function will remain adequate., Patient/ family verbilizes understanding of procedure., Procedure tolerated without complication., Recovers from procedure without complications.. 10:11:34 Patient received from Med/Surg to IR Alert and oriented. Tansferred to table in Supine position. 10:11:39 Signed procedure consent form obtained from guardian. 10:11:48 H&P Date Dictated: 02/24/2018 Within 30 days and on chart.. 10:11:50 Pre-procedure instructions explained to patient. 10:11:50 Pre-op teaching completed and patient verbalized understanding. 10:11:52 Family in patients room. 10:11:56 Patient NPO since Midnight. 10:13:12 ECG and BP/O2 sat monitors applied to patient. 10:13:14 Vital chart was started 10:13:16 Baseline sample Acquired. 10:13:17 Full Disclosure recording started 10:13:18 - 10:13:40 Patient allergic to Codeine 10:13:47 Patient allergic to Sulfa drugs 10:13:56 Patient diabetic? No. 10:14:02 ----Pre-sedation anethsthesia assessment.---- 10:14:07 Previous problem with sedation/anesthesia? No ? 10:14:10 Snore? Yes 10:14:13 Sleep apnea? No 10:14:18 Deviated septum? No 10:14:21 Opens mouth fully? Yes 10:14:25 Sticks out tongue? Yes 10:14:29 Airway obstruction? No ? 10:14:32 Dentures? No ? 10:14:42 IV patent on arrival in left hand with D5/.45%NaCl at [facility]. 10:14:50 Right Arm area was prepped with chlora-prep and draped in sterile fashion 10:14:52 - 10:14:58 Use device set IR Diagnostic 10:15:01 Sterile Angiographic Pack opened to sterile field. 10:15:02 Bag Decanter (2002S) opened to sterile field. 10:15:11 SHIELD Sorbaview ([id number]) opened to sterile field. 10:16:30 Lidocaine 1% 20ml vial added to field was administered by Pratik Wells MD; used for procedure; 10:16:42 Heparin Flush Bag (1000units/500ml NS) 2 bags added to field was administered by Pratik Wells MD; used for procedure; 10:17:05 Oxygen 3 l/min etCO2 Nasal cannula was administered by Tonja Barber RN ; ; 10:21:49 Baseline sample Acquired. 10:22:01 - 10:29:30 Physician arrived 10:29:32 --------ALL STOP TIME OUT------ 10:29:33 Final Timeout: patient, procedure, and site verified with staff and physician. All members of the team are in agreement. 10:29:49 Venous access obtained using ultrasound guidance. 10:30:45 Procedure started. 10:30:51 Local anesthetic to right arm with Lidocaine 1% by Pratik Wells MD.INITIAL ACCESS ONLY 10:31:21 Versed 1 mg I.V. was administered by Tonja Barber RN; for sedation; 10:31:33 Fentanyl 50 mcg I.V. was administered by Tonja Barber RN; for sedation ; 10:39:42 PICC line was trimmed to 40cm and advanced to the superior vena cava.Position verified under fluoroscopy. 10:41:30 Procedure ended.(Physican Out) 10:42:02 Fluoroscopy dose: 2 mGy 10:42:02 Flurop Dose total: 2 10:42:11 Procedure and supply charges have been captured, reviewed, submitted an d are correct. 10:43:33 Report given to Med/Surg. 10:48:12 Vital chart was stopped Device Usage Item Name Manufacture Quantity Catalog Hospital Part Current Minimal Lot# / Number Charge Number Stock Stock Serial# Code Sterile Cardinal 1 [id number] 5 Angiographic Health Pack Bag Decanter Microtek 1 [id number] 5 () Medical Inc. SHIELD [facility] 1 [id number] 5 Sorbaview ([id number]) Signature Audit [place] Stage Time Signature Unsigned Intra-Procedure 02/24/2018 Kamala Quintana 10:48:09 AM RT(R) [facility] [address] [place] [address]
--- NOTE | ~2018-02-13 | OP ---
PATIENT NAME: MATEUSZ ORONA MEDICAL RECORD: [id number] :39 LOCATION:D.MS [facility]221Pro ADMISSION DATE:02/14/18 SURGEON: ANETTE FINNEY MD DATE OF OPERATION: 02/17/2018 SURGEON: Anette Finney MD PREOPERATIVE DIAGNOSES: 1. Recurrent acute diverticulitis. 2. Irjmr-fk-vdctpkb diverticulitis. POSTOPERATIVE DIAGNOSES: 1. Recurrent acute diverticulitis. 2. Eiogw-el-dwwiqpo diverticulitis. PROCEDURE PERFORMED: 1. Hand-assisted laparoscopic sigmoid colectomy. 2. Laparoscopic mobilization of splenic flexure. 3. Diverting loop ileostomy. ANESTHESIA: General. COMPLICATIONS: None. SPECIMENS: Sigmoid colon and mesentery. Case was contaminated. ESTIMATED BLOOD LOSS: 300 cc. OPERATIVE COURSE: After consent was obtained, the patient was taken to the operating room and placed in supine position on the operating table. Next, general anesthesia was given via endotracheal intubation. Thereafter, a timeout was performed to confirm the correct patient and procedure. The abdomen was prepped and draped in typical sterile fashion. Ioban dressing was placed. Lower midline incision was made using a 10 blade scalpel. Dissection continued to the level of the fascia using electrocautery. The fascia was incised with electrocautery. The peritoneum was incised using Metzenbaum scissors and remaining portion of the incision was opened using electrocautery. An Ulices Gelport wound retractor was placed, a 5-mm trocar was placed in the epigastric region. The abdomen was insufflated. The abdominal cavity was inspected, no evidence of bowel injury, no evidence of bleeding. At this time, the left colon was mobilized. The white line of Toldt was taken along the left colonic side wall using the Harmonic scalpel. Dissection continued to the level of splenic flexure. The splenic flexure was mobilized using the Harmonic scalpel. Once adequate mobilization of splenic flexure and length had been gained on the left colon, the GelPort was removed. The bowel was retracted towards the left upper quadrant. The sigmoid colon was markedly indurated and inflamed. It was meticulously dissected off the pelvic side wall. Healthy rectum was identified. A mesenteric window was created using a linear GI stapler. The rectum was transected. Dissection of the mesentery then continued. As the mesentery was decided, the left ureter was identified and swept laterally. Superior hemorrhoidal vessels were taken with the Harmonic scalpel. Healthy appearing tissue of the descending colon was identified. A second mesenteric window was created. Again, using linear JENNA stapler, we transected the colon. The OPERATIVE REPORT [id number] remaining portion of the mesentery was taken with the Harmonic scalpel. The sigmoid colon and mesentery were passed off the field and sent for permanent pathology. There was adequate length with no tension. At this time, I decided to do a fcxu-vn-qazg anastomosis of the colorectal anastomosis. Multiple 3-0 Vicryl stay sutures were placed. Enterotomies were created with the electrocautery. Using a linear cutting GI stapler, a common enterotomy was created using a 75-mm green load stapler. The common enterotomy was closed with interrupted 3-0 Vicryl suture in a 2-layer fashion and the suture line was imbricated using 3-0 Vicryl suture. At this time, a leak test was performed. No evidence of leak. The abdomen was copiously irrigated and suctioned. Next, a diverting loop ileostomy was created in the right lower quadrant approximately 15 cm to the ileocecal valve. A loop of small bowel was identified with adequate mesenteric length. The incision was made in the right lower quadrant. A cruciate incision was made in the anterior fascia. The peritoneum was incised with electrocautery. The diverting loop was delivered through the abdominal wall. The small bowel was opened using electrocautery in a standard Poppy ileostomy fashion. A diverting loop ileostomy was created using 3-0 Vicryl suture. At this time, all gown and gloves were changed. Using a sterile closure table, the fascia was closed using #1 looped PDS. Skin was closed with sawyer. At the end of the case, all needle and instrument counts were correct. No complications occurred. The patient was transferred to the PACU in stable condition. Operative acute care certified nursing assistant during this case was Debbie Deleon APN. TRANSINT:[id number] Voice Confirmation ID: [id number] DOCUMENT ID: [id number] ANETTE FINNEY MD at 1508 CC: [id number] DICTATION DATE: 02/17/18 7308 PROGRAM PROPOSALS COORDINATOR: 02/17/[address] [facility] [address] [id number]
--- NOTE | ~2018-02-13 | MORECARE ---
CASE MANAGEMENT DISCHARGE SUMMARY PATIENT: MATEUSZ ORONA UNIT: [id number] ADM DATE: 02/14/18 AGE: 82 : 37 SEX: F ROOM/BED: D.2213 AUTHOR: SHEILA ROGERS PHYSICIAN: REFERRING PHYSICIAN: ALBERTINA PARK MD DATE OF SERVICE: 03/15/18 Discharge Plan Patient Name: MATEUSZ ORONA Facility: [facility]:[place] : 1935 Planned Disposition: Care Home Facility Anticipated Discharge Date: Discharge Date: 03/08/2018 Expected LOS: 0 Initial Reviewer: [email or web address] Initial Review Date: 02/14/2018 Generated: 03/15/18 9:06 am Comments DCP- Discharge Planning Updated by [email or web address]: Corin Araya on 03/08/18 12:[address] Patient will be discharging to inpatient rehab today. and family at bedside DCP- Discharge Planning Updated by [email or web address]: Corin Araya on 03/08/18 7:[address] IMM SERVED AND EXPLAINED DCP- Discharge Planning Updated by [email or web address]: Corin Araya on 03/03/18 1:[address] Jayleen is back and OK to go to a longterm at patient choice. is not requesting that she goes to [facility] inpatient rehab. Will put in a consult DCP- Discharge Planning Updated by [email or web address]: Corin Araya on 03/02/18 11:[address] [place] sent DCP- Discharge Planning Updated by [email or web address]: Corin Araya on 02/24/18 9:[address] REFERRAL SENT TO [facility], I SPOKE WITH CORRIE DCP- Discharge Planning Updated by [email or web address]: Corin Araya on 02/16/18 2:[address] Patient Name: MATEUSZ ORONA Admission Status: ER Accout number: [id number] Admission Date: 02-14-2018 : 1935 Admission Diagnosis:DVTRCLI OF LG INT W/O PERFORATION OR ABSCESS W/O BLEEDI Attending: ALBERTINA PARK Current LOS: 2 Anticipated DC Date: Planned Disposition: Care Home Facility Primary Insurance: MEDICARE A & B Discharge Planning Comments: CM met with patient and daughter to assess discharge planning needs. Patient lives independently at home with her and her daughter has been staying with her for the past 8 weeks to help out. Patient plans to go to [facility] [place] at discharge. She states that she has a cane and shower chair at home, but does not use either. CM will send referral to [place] as requested. CM will continue to follow and assist with DC planning Research Environmental Scientist: Corin Araya DCPIA - Discharge Planning Initial Assessment Updated by [email or web address]: Corin Araya on 02/16/18 3:36 pm * Is the patient Alert and Oriented? Yes * How many steps to enter\exit or inside your home? RAMP * PCP VIVIAN * Pharmacy [facility] * Preadmission Environment Home with Family * ADLs Independent * Equipment Cane Shower Chair * List name and contact numbers for known caregivers / representatives who currently or will assist patient after discharge: PINEDA (DAUGHTER) [phone] * Verbal permission to speak to the caregivers and representatives has been obtained from the patient. Yes * Community resources currently utilized None * Additional services required to return to the preadmission environment? Yes * Can the patient safely return to the preadmission environment? No * Has this patient been hospitalized within the prior 30 days at any hospital? No Last DP export: 03/08/18 12:20 Patient Name: MATEUSZ ORONA Page [id number] at 0806 All edits/amendments must be made on the electronic document DICTATION DATE: 03/15/18804 INTERNAL COMMUNICATIONS WRITER: AIMEE 03/15/18804 RPT#: [id number] DC DATE:03/08/18 STATUS: DIS IN [facility] [address] [place] [address] END OF REPORT
--- NOTE | ~2018-02-13 | HP ---
PATIENT: MATEUSZ ORONA MEDICAL RECORD: [id number] ACCOUNT: [id number] LOCATION:D.MS [facility]3 : 39 ADMISSION DATE: 02/14/18 PCP: No PCP HISTORY AND PHYSICAL EXAMINATION CHIEF COMPLAINT: Generalized abdominal pain and constipation. HISTORY OF PRESENT ILLNESS: The patient is an 82-year-old female who was hospitalized in of October and November of this year, along with outpatient IV Zosyn therapy for recurrent sigmoid diverticulitis. She said she had done fairly well until 3 days prior to admission, developed some mild constipation. The patient was seen in our office with our nurse practitioner 2 days ago with normal CBC and UA. Her fiber was increased, pain became worse over the weekend without fever. Last stool was yesterday and small in caliber. She just could not stand her pain and came in for that reason. She has been followed by Dr. Bangura and Dr. ANDRES Lee for this problem. Then, they had deferred sigmoid resection due to her advanced age and improvement with antibiotics. She denies nausea or vomiting. In ED, she received IV Levaquin and had a cutaneous reaction to that and that was discontinued. PAST MEDICAL HISTORY: Recurrent sigmoid diverticulitis, depression, anxiety, and allergic rhinitis. Lumbago and lumbar disc disease. PAST SURGICAL HISTORY: Cholecystectomy, sinus surgery, salivary gland removed. Discectomy - lumbar disc, left elbow ORIF. Cataract surgery, OU. ALLERGIES: HYDROCODONE, OXYCODONE, SULFA, CODEINE, AND LEVAQUIN. FAMILY HISTORY: Parents with a history of cancer and diabetes. SOCIAL HISTORY: Nonsmoker, nondrinker, lives in [place], daughters are attentive to her needs. HOME MEDICATIONS: Levsin 0.125 mg p.o. q. 4 hours p.r.n. abdominal cramping, Celexa 10 mg a day, Ativan 1 mg at bedtime, BuSpar 10 mg b.i.d., tramadol 50 mg q. 6 hours p.r.n. pain, Colace 100 mg p.o. at bedtime, Pepcid 10 mg p.o. b.i.d., lactobacillus 460 mg p.o. at bedtime, Zofran 4 mg p.r.n. nausea or vomiting. Fiber - psyllium 30 g p.o. b.i.d., Carafate 1 g p.o. a.c. meals, vitamin B complex 2500 mcg p.o. daily, and Hemp Oil 750 mg p.o. b.i.d., vitamin D 2500 international units p.o. daily. REVIEW OF SYSTEMS: GENERAL: She has not felt well for the last 2-3 days but no fever, has had poor appetite. HEENT: No recent visual change, sinus congestion, or sore throat. RESPIRATORY: No severe cough. CARDIAC: No chest pain, claudication or edema. GASTROINTESTINAL: She has had some mild nausea and small stool caliber in the last 3 days. She has had generalized abdominal pain, 4/10 on pain scale initially, 7/10 max. GENITOURINARY: She has had no melena, blood per rectum. GYNECOLOGIC: No vaginal bleeding. ENDOCRINE: Denies polyuria, polydipsia, heat or cold intolerance. NEUROLOGIC: No history of stroke, TIA, vascular headaches, or seizures. PSYCHIATRIC: Admits to depressed mood and poor appetite, recently took HISTORY AND PHYSICAL [id number] MATEUSZ ORONA medication, discontinued that for appetite. PHYSICAL EXAMINATION: VITAL SIGNS: Temperature 98.8 Fahrenheit orally. Respirations are 18, blood pressure 130/84 with a sat of 97% on room air. GENERAL: Alert and oriented, in no acute distress. HEENT: Eyes: Clear with cataract implants OU. Oropharynx unremarkable. NECK: No bruits or masses. CHEST: Clear. HEART: Regular rate and rhythm. ABDOMEN: Soft with moderate pain in the left lower quadrant and suprapubically without rebound. Bowel sounds are active. RECTAL: Deferred. EXTREMITIES: Trace pretibial edema bilaterally. Gait is normal. NEUROLOGIC: Oriented to person, place, and time. Cranial nerves intact. No localizing neurological deficits are appreciated. LABORATORY DATA: CT of the abdomen reveals sigmoid diverticulitis without extravasation. White count is 10,000, H&H of 13.3 and 38.3 and left slight shift. Chemistry is unremarkable. Lipase is normal. UA shows 1+ blood in the urine, 5-10 red cells, 0-5 white cells. ASSESSMENT: 1. Bdpge-sa-ltmonqj sigmoid diverticulitis, abdominal pain. 2. Microscopic hematuria. 3. History of depression. 4. Lumbar disc disease. 5. LEVAQUIN ALLERGY. PLAN: We will switch to Zosyn, which she responded to previously. Soft diet. Deferred surgery unless the patient does not respond to therapy. TRANSINT:[id number] Voice Confirmation ID: [id number] DOCUMENT ID: [id number] CLAIRE DOYLE MD at 2021 CC: [id number] DICTATION DATE: 02/14/1835 REPAIR CLERK: 02/14/18 1139 ADM IN [place] [id number] [place] [id number]
[~2018-02-13 21:08] MED LIST changes: -ATIVAN0.5 MG PO; -B COMPLEX SL; -BUSPAR10 MG PO; -BUSPAR5 MG PO; -CBD HEMP OIL SL; -COLACE100 MG PO; -FAMOTIDINE10 MG PO; -FIBER THERAPY1368 GM PO; -GAS-X125 M1 PO; -VITAMIN D3 PO
[2018-02-13] MEDS ORDERED: FAMOTIDINE10 MG PO (21:15)
[2018-02-13] MEDS ORDERED: BUSPAR5 MG PO (21:16)
[2018-02-13] MEDS ORDERED: CELEXA10 MG PO (21:16)
[2018-02-13 21:57] LABS: BASOPHILS 0.1 % (0-2); EOSINOPHILS 1.9 % (0-7); HEMATOCRIT 38.3 % (36.0-48.0); HEMOGLOBIN 13.3 g/dL (12-16); IMMATURE GRANULOCYTES 0.2 % (0-5); LYMPHOCYTES 12.7 % (15-50); MCHC 34.7 g/dL (31.0-37.0); MEAN PLATELET VOLUME 10.1 fL (7.4-10.4); MONOCYTES 7.9 % (2-11); NEUTROPHILS 77.2 % (40-80); PLATELET COUNT 196 10x3/uL (130-400); RBC 4.03 10x6/uL (4.00-5.40); RDW 13.9 % (11.5-14.5); WBC 10.3 10x3/uL (4.8-10.8)
[2018-02-13 22:14] LABS: APPEARANCE CLEAR (CLEAR); BILIRUBIN NEGATIVE (NEGATIVE); COLOR YELLOW (YELLOW); GLUCOSE NEGATIVE (NEGATIVE); KETONE NEGATIVE (NEGATIVE); NITRITE NEGATIVE (NEGATIVE); PROTEIN NEGATIVE (NEGATIVE); UROBILINOGEN NORMAL (NORMAL)
[2018-02-13 22:16] LABS: EPITHELIAL CELLS 0-5 /hpf (0-5); WHITE CELLS - URINE 0-5 /hpf (0-5)
[2018-02-13 22:17] LABS: BACTERIA FEW /hpf (NONE SEEN)
[2018-02-13 22:30] LABS: ALBUMIN 3.4 g/dL (3.4-5.0); ALKALINE PHOSPHATASE 37 U/L (46-116); ALT (SGPT) 34 U/L (10-68); BILIRUBIN - TOTAL 0.46 mg/dL (0.2-1.3); CALC OSMOLALITY 274 mosm/kg (275-300); CALCIUM 9.6 mg/dL (8.5-10.1); CARBON DIOXIDE 22.1 mmol/L (21.0-32.0); CHLORIDE - SERUM 103 mmol/L (98-107); GLUCOSE 103 mg/dL (74-106); POTASSIUM - SERUM 3.6 mmol/L (3.5-5.1); PROTEIN - SERUM 6.9 g/dL (6.4-8.2); SODIUM 137 mmol/L (136-145); UREA NITROGEN 16 mg/dL (7-18); eGFR NON AFRICAN AMERICAN 56 mL/min (90-120)
[2018-02-13 22:35] LABS: LIPASE 108 U/L (73-393); PRO BNP 125 pg/mL (0-450)
[2018-02-13 22:40] LABS: TROPONIN-I < 0.017 ng/mL (0.000-0.060)
[2018-02-13 23:02] VITALS: BP 142/78
[2018-02-14 00:43] VITALS: BP 138/82
[2018-02-14] MEDS ORDERED: ATIVAN0.5 MG PO (01:40)
[2018-02-14] MEDS ORDERED: CARAFATE1 G PO (01:42)
[2018-02-14] MEDS ORDERED: BUSPAR10 MG PO (01:43)
[2018-02-14] MEDS ORDERED: FLORAJEN3 CAPS460 MG PO (01:44)
[2018-02-14] MEDS ORDERED: ZOFRAN ODT4 MG/UDTAB PO (01:50)
[2018-02-14] MEDS ORDERED: CBD HEMP OIL SL (01:51)
[2018-02-14] MEDS ORDERED: COLACE100 MG PO (01:52)
[2018-02-14] MEDS ORDERED: FIBER THERAPY1368 GM PO (01:53)
[2018-02-14] MEDS ORDERED: VITAMIN D3 PO (01:54)
[2018-02-14] MEDS ORDERED: B COMPLEX SL (01:55)
[2018-02-14 02:19] VITALS: BP 153/94; BMI 28.2
[2018-02-14 04:59] VITALS: BP 112/60
[2018-02-14 09:41] VITALS: BP 129/66
[2018-02-14] MEDS ORDERED: GAS-X125 M1 PO (14:57)
[2018-02-14 15:53] VITALS: BP 126/60
[2018-02-14 20:05] VITALS: BP 129/66
[2018-02-15 03:43] VITALS: BP 123/73
[2018-02-15 05:28] LABS: BASOPHILS 0.1 % (0-2); EOSINOPHILS 1.9 % (0-7); HEMATOCRIT 34.2 % (36.0-48.0); HEMOGLOBIN 11.8 g/dL (12-16); IMMATURE GRANULOCYTES 0.2 % (0-5); LYMPHOCYTES 12.3 % (15-50); MCH 32.9 pg (26.0-34.0); MCHC 34.5 g/dL (31.0-37.0); MCV 95.3 fL (80.0-100.0); MONOCYTES 8.2 % (2-11); NEUTROPHILS 77.3 % (40-80); PLATELET COUNT 196 10x3/uL (130-400); RBC 3.59 10x6/uL (4.00-5.40); RDW 14.2 % (11.5-14.5); WBC 8.5 10x3/uL (4.8-10.8)
[2018-02-15 05:45] LABS: ANION GAP 17.8 mmol/L (8-16); CALCIUM 8.3 mg/dL (8.5-10.1); CARBON DIOXIDE 19.9 mmol/L (21.0-32.0); CREATININE - SERUM 0.8 mg/dL (0.6-1.3); POTASSIUM - SERUM 3.7 mmol/L (3.5-5.1)
[2018-02-15 08:02] VITALS: BP 147/81
[2018-02-15 11:51] VITALS: BMI 28.2
[2018-02-15 12:43] VITALS: BP 131/73
[2018-02-15 15:58] VITALS: BP 133/70
[2018-02-15 17:02] VITALS: Ht 170.2 cm; Wt 81.6 kg
[2018-02-15 20:26] VITALS: BP 140/76
[2018-02-16 05:23] LABS: BASOPHILS 0.2 % (0-2); EOSINOPHILS 2.9 % (0-7); HEMATOCRIT 33.9 % (36.0-48.0); HEMOGLOBIN 11.8 g/dL (12-16); IMMATURE GRANULOCYTES 0.2 % (0-5); LYMPHOCYTES 17.6 % (15-50); MCH 33.1 pg (26.0-34.0); MCHC 34.8 g/dL (31.0-37.0); MCV 95.2 fL (80.0-100.0); MEAN PLATELET VOLUME 9.8 fL (7.4-10.4); MONOCYTES 7.4 % (2-11); NEUTROPHILS 71.7 % (40-80); PLATELET COUNT 190 10x3/uL (130-400); RBC 3.56 10x6/uL (4.00-5.40)
[2018-02-16 05:45] LABS: ANION GAP 11.5 mmol/L (8-16); CALCIUM 7.9 mg/dL (8.5-10.1); CARBON DIOXIDE 24.5 mmol/L (21.0-32.0); CREATININE - SERUM 0.8 mg/dL (0.6-1.3)
[2018-02-16 05:47] VITALS: BP 141/81
[2018-02-16 05:51] LABS: APTT 30.3 SECONDS (22.8-39.4); INR 1.32 (0.85-1.17); PROTIME 15.9 SECONDS (11.6-15.0); WBC 5.8 10x3/uL (4.8-10.8)
[2018-02-16 07:52] VITALS: BP 144/79
[2018-02-16 12:34] VITALS: BP 134/75
[2018-02-16 22:10] VITALS: BP 161/86
[2018-02-17] VITALS (7 sets, daily range): BP systolic 103–138; BP diastolic 68–81
[2018-02-18 05:41] VITALS: BP 128/73
[2018-02-18 07:39] LABS: BASOPHILS 0.1 % (0-2); EOSINOPHILS 0 % (0-7); HEMATOCRIT 36.6 % (36.0-48.0); HEMOGLOBIN 12.6 g/dL (12-16); IMMATURE GRANULOCYTES 0.3 % (0-5); LYMPHOCYTES 5.1 % (15-50); MCH 32.6 pg (26.0-34.0); MCHC 34.4 g/dL (31.0-37.0); MCV 94.8 fL (80.0-100.0); MEAN PLATELET VOLUME 9.5 fL (7.4-10.4); MONOCYTES 7.6 % (2-11); NEUTROPHILS 86.9 % (40-80); PLATELET COUNT 211 10x3/uL (130-400); RBC 3.86 10x6/uL (4.00-5.40); RDW 14.1 % (11.5-14.5)
[2018-02-18 07:53] LABS: ANION GAP 15.6 mmol/L (8-16); CALCIUM 7.1 mg/dL (8.5-10.1); CREATININE - SERUM 0.9 mg/dL (0.6-1.3); POTASSIUM - SERUM 3.6 mmol/L (3.5-5.1)
[2018-02-18 10:48] VITALS: BP 143/71
[2018-02-18 20:00] VITALS: BP 154/83
[2018-02-19] VITALS: BP 129/67
[2018-02-19 04:00] VITALS: BP 129/76
[2018-02-19 08:00] LABS: BASOPHILS 0.1 % (0-2); EOSINOPHILS 0.2 % (0-7); HEMATOCRIT 34.1 % (36.0-48.0); HEMOGLOBIN 11.7 g/dL (12-16); IMMATURE GRANULOCYTES 0.4 % (0-5); LYMPHOCYTES 4.8 % (15-50); MCH 32.7 pg (26.0-34.0); MCHC 34.3 g/dL (31.0-37.0); MCV 95.3 fL (80.0-100.0); MEAN PLATELET VOLUME 9.7 fL (7.4-10.4); MONOCYTES 4.3 % (2-11); NEUTROPHILS 90.2 % (40-80); PLATELET COUNT 194 10x3/uL (130-400); RBC 3.58 10x6/uL (4.00-5.40); RDW 14.3 % (11.5-14.5); WBC 14.5 10x3/uL (4.8-10.8)
[2018-02-19 08:02] VITALS: BP 148/79
[2018-02-19 08:14] LABS: ANION GAP 15.7 mmol/L (8-16); CALCIUM 7.1 mg/dL (8.5-10.1); CARBON DIOXIDE 18.8 mmol/L (21.0-32.0); CREATININE - SERUM 0.9 mg/dL (0.6-1.3); POTASSIUM - SERUM 3.5 mmol/L (3.5-5.1)
[2018-02-19 11:46] VITALS: BP 138/81
[2018-02-19 20:00] VITALS: BP 151/89
[2018-02-20] VITALS: BP 139/83
[2018-02-20 04:00] VITALS: BP 168/97
[2018-02-20 05:51] LABS: BASOPHILS 0.1 % (0-2); HEMATOCRIT 36.7 % (36.0-48.0); HEMOGLOBIN 12.6 g/dL (12-16); IMMATURE GRANULOCYTES 0.5 % (0-5); LYMPHOCYTES 7.4 % (15-50); MCH 32.8 pg (26.0-34.0); MCHC 34.3 g/dL (31.0-37.0); MCV 95.6 fL (80.0-100.0); MEAN PLATELET VOLUME 9.7 fL (7.4-10.4); MONOCYTES 3.6 % (2-11); NEUTROPHILS 87.4 % (40-80); RBC 3.84 10x6/uL (4.00-5.40); RDW 14.4 % (11.5-14.5); WBC 15.5 10x3/uL (4.8-10.8)
[2018-02-20 05:52] LABS: PLATELET COUNT 237 10x3/uL (130-400)
[2018-02-20 06:34] LABS: CALC OSMOLALITY 284 mosm/kg (275-300); CALCIUM 7.2 mg/dL (8.5-10.1); CARBON DIOXIDE 19.5 mmol/L (21.0-32.0); CHLORIDE - SERUM 111 mmol/L (98-107); CREATININE - SERUM 0.7 mg/dL (0.6-1.3); GLUCOSE 110 mg/dL (74-106); POTASSIUM - SERUM 3.6 mmol/L (3.5-5.1); SODIUM 142 mmol/L (136-145); UREA NITROGEN 16 mg/dL (7-18); eGFR NON AFRICAN AMERICAN 85 mL/min (90-120)
[2018-02-20 09:11] VITALS: BP 172/97
[2018-02-20 15:35] VITALS: BP 175/96
[2018-02-20 19:58] VITALS: BP 168/91
[2018-02-21] VITALS: BP 169/89
[2018-02-21 04:08] VITALS: BP 175/92
[2018-02-21 04:19] LABS: BASOPHILS 0.2 % (0-2); EOSINOPHILS 0.7 % (0-7); HEMATOCRIT 35.3 % (36.0-48.0); HEMOGLOBIN 12.2 g/dL (12-16); IMMATURE GRANULOCYTES 0.7 % (0-5); LYMPHOCYTES 7.9 % (15-50); MCH 32.7 pg (26.0-34.0); MCHC 34.6 g/dL (31.0-37.0); MCV 94.6 fL (80.0-100.0); MEAN PLATELET VOLUME 9.7 fL (7.4-10.4); MONOCYTES 5.2 % (2-11); NEUTROPHILS 85.3 % (40-80); PLATELET COUNT 250 10x3/uL (130-400); RBC 3.73 10x6/uL (4.00-5.40); RDW 14.3 % (11.5-14.5)
[2018-02-21 04:30] LABS: WBC 11.2 10x3/uL (4.8-10.8)
[2018-02-21 04:43] LABS: CALC OSMOLALITY 287 mosm/kg (275-300); CALCIUM 7.2 mg/dL (8.5-10.1); CARBON DIOXIDE 21.8 mmol/L (21.0-32.0); CHLORIDE - SERUM 109 mmol/L (98-107); CREATINE KINASE 118 UL (21-215); CREATININE - SERUM 0.7 mg/dL (0.6-1.3); GLUCOSE 119 mg/dL (74-106); POTASSIUM - SERUM 3.4 mmol/L (3.5-5.1); SODIUM 143 mmol/L (136-145); UREA NITROGEN 18 mg/dL (7-18); eGFR NON AFRICAN AMERICAN 85 mL/min (90-120)
[2018-02-21 04:44] LABS: PHOSPHOROUS 1.1 mg/dL (2.5-4.9); TROPONIN-I < 0.017 ng/mL (0.000-0.060)
[2018-02-21 11:08] LABS: BASOPHILS 0.1 % (0-2); EOSINOPHILS 0.3 % (0-7); HEMATOCRIT 34.5 % (36.0-48.0); HEMOGLOBIN 11.9 g/dL (12-16); IMMATURE GRANULOCYTES 0.8 % (0-5); LYMPHOCYTES 7.4 % (15-50); MCH 32.5 pg (26.0-34.0); MCHC 34.5 g/dL (31.0-37.0); MCV 94.3 fL (80.0-100.0); MEAN PLATELET VOLUME 9.8 fL (7.4-10.4); NEUTROPHILS 86.4 % (40-80); PLATELET COUNT 244 10x3/uL (130-400); RBC 3.66 10x6/uL (4.00-5.40); RDW 14.2 % (11.5-14.5); WBC 11.2 10x3/uL (4.8-10.8)
[2018-02-21 11:13] LABS: CKMB 0.8 U/L (0.0-3.6); CREATINE KINASE 108 UL (21-215); TROPONIN-I < 0.017 ng/mL (0.000-0.060)
[2018-02-21 11:16] LABS: CALC OSMOLALITY 285 mosm/kg (275-300); CREATININE - SERUM 0.7 mg/dL (0.6-1.3); GLUCOSE 119 mg/dL (74-106); POTASSIUM - SERUM 3.6 mmol/L (3.5-5.1); SODIUM 142 mmol/L (136-145); UREA NITROGEN 17 mg/dL (7-18); eGFR NON AFRICAN AMERICAN 85 mL/min (90-120)
[2018-02-21 11:17] LABS: CARBON DIOXIDE 19.2 mmol/L (21.0-32.0); CHLORIDE - SERUM 111 mmol/L (98-107)
[2018-02-21 11:18] LABS: CALCIUM 6.9 mg/dL (8.5-10.1)
[2018-02-21 16:55] LABS: CREATINE KINASE 112 UL (21-215); TROPONIN-I < 0.017 ng/mL (0.000-0.060)
[2018-02-21 19:50] VITALS: BP 168/87
[2018-02-21 22:33] LABS: CKMB 0.7 U/L (0.0-3.6); CREATINE KINASE 104 UL (21-215)
[2018-02-21 22:34] LABS: TROPONIN-I < 0.017 ng/mL (0.000-0.060)
[2018-02-22 07:45] LABS: BASOPHILS 0.2 % (0-2); EOSINOPHILS 0.6 % (0-7); HEMATOCRIT 33.2 % (36.0-48.0); HEMOGLOBIN 11.5 g/dL (12-16); IMMATURE GRANULOCYTES 1.5 % (0-5); LYMPHOCYTES 9.2 % (15-50); MCH 32.5 pg (26.0-34.0); MCHC 34.6 g/dL (31.0-37.0); MCV 93.8 fL (80.0-100.0); MEAN PLATELET VOLUME 9.6 fL (7.4-10.4); MONOCYTES 6.2 % (2-11); NEUTROPHILS 82.3 % (40-80); PLATELET COUNT 237 10x3/uL (130-400); RBC 3.54 10x6/uL (4.00-5.40); RDW 14.2 % (11.5-14.5)
[2018-02-22 08:11] LABS: ALBUMIN 1.9 g/dL (3.4-5.0); ALKALINE PHOSPHATASE 46 U/L (46-116); ALT (SGPT) 45 U/L (10-68); BILIRUBIN - TOTAL 0.35 mg/dL (0.2-1.3); CALC OSMOLALITY 287 mosm/kg (275-300); CARBON DIOXIDE 21.2 mmol/L (21.0-32.0); CHLORIDE - SERUM 111 mmol/L (98-107); CREATININE - SERUM 0.6 mg/dL (0.6-1.3); GLUCOSE 111 mg/dL (74-106); POTASSIUM - SERUM 3.2 mmol/L (3.5-5.1); SODIUM 143 mmol/L (136-145); UREA NITROGEN 18 mg/dL (7-18); eGFR NON AFRICAN AMERICAN > 90 mL/min (90-120)
[2018-02-22 08:23] LABS: CALCIUM 6.5 mg/dL (8.5-10.1)
[2018-02-22 14:09] VITALS: BP 172/92
[2018-02-22 20:00] VITALS: BP 194/81
[2018-02-23 06:00] VITALS: BP 162/88
[2018-02-23 08:53] LABS: BASOPHILS 0.1 % (0-2); EOSINOPHILS 1.1 % (0-7); HEMATOCRIT 34.1 % (36.0-48.0); HEMOGLOBIN 11.8 g/dL (12-16); IMMATURE GRANULOCYTES 1.2 % (0-5); LYMPHOCYTES 9.9 % (15-50); MCH 32.3 pg (26.0-34.0); MCHC 34.6 g/dL (31.0-37.0); MCV 93.4 fL (80.0-100.0); MEAN PLATELET VOLUME 9.7 fL (7.4-10.4); MONOCYTES 5.8 % (2-11); NEUTROPHILS 81.9 % (40-80); PLATELET COUNT 243 10x3/uL (130-400); RBC 3.65 10x6/uL (4.00-5.40); RDW 14.1 % (11.5-14.5); WBC 11.3 10x3/uL (4.8-10.8)
[2018-02-23 09:32] LABS: CALC OSMOLALITY 285 mosm/kg (275-300); CARBON DIOXIDE 21.7 mmol/L (21.0-32.0); CHLORIDE - SERUM 109 mmol/L (98-107); CREATININE - SERUM 0.7 mg/dL (0.6-1.3); GLUCOSE 101 mg/dL (74-106); MAGNESIUM - SERUM 1.9 mg/dL (1.8-2.4); SODIUM 143 mmol/L (136-145); UREA NITROGEN 14 mg/dL (7-18); eGFR NON AFRICAN AMERICAN 85 mL/min (90-120)
[2018-02-23 09:36] LABS: CALCIUM 6.5 mg/dL (8.5-10.1)
[2018-02-23 21:00] VITALS: BP 187/90
[2018-02-24 05:43] VITALS: BP 195/90
[2018-02-24 05:56] LABS: BASOPHILS 0.1 % (0-2); EOSINOPHILS 1.6 % (0-7); HEMATOCRIT 35.1 % (36.0-48.0); IMMATURE GRANULOCYTES 0.9 % (0-5); LYMPHOCYTES 8.5 % (15-50); MCHC 34.2 g/dL (31.0-37.0); MCV 93.6 fL (80.0-100.0); MONOCYTES 5.3 % (2-11); NEUTROPHILS 83.6 % (40-80); RBC 3.75 10x6/uL (4.00-5.40); RDW 14.1 % (11.5-14.5); WBC 11.6 10x3/uL (4.8-10.8)
[2018-02-24 06:12] LABS: PLATELET COUNT 301 10x3/uL (130-400)
[2018-02-24 06:17] LABS: CALC OSMOLALITY 280 mosm/kg (275-300); CARBON DIOXIDE 22.9 mmol/L (21.0-32.0); CHLORIDE - SERUM 108 mmol/L (98-107); GLUCOSE 95 mg/dL (74-106); MAGNESIUM - SERUM 1.9 mg/dL (1.8-2.4); SODIUM 141 mmol/L (136-145); UREA NITROGEN 12 mg/dL (7-18)
[2018-02-24 06:32] LABS: CALCIUM 6.8 mg/dL (8.5-10.1); CREATININE - SERUM 0.5 mg/dL (0.6-1.3); PHOSPHOROUS 1.1 mg/dL (2.5-4.9); eGFR NON AFRICAN AMERICAN > 90 mL/min (90-120)
[2018-02-24 09:44] VITALS: BP 184/93
[2018-02-24 17:42] VITALS: BP 129/82
[2018-02-24 20:55] VITALS: BP 178/76
[2018-02-25 05:22] VITALS: BP 164/86
[2018-02-25 08:43] LABS: BASOPHILS 0.1 % (0-2); EOSINOPHILS 1.3 % (0-7); HEMATOCRIT 35.6 % (36.0-48.0); HEMOGLOBIN 12.5 g/dL (12-16); IMMATURE GRANULOCYTES 0.7 % (0-5); LYMPHOCYTES 7.1 % (15-50); MCH 32.4 pg (26.0-34.0); MCHC 35.1 g/dL (31.0-37.0); MCV 92.2 fL (80.0-100.0); MEAN PLATELET VOLUME 10.2 fL (7.4-10.4); MONOCYTES 5.5 % (2-11); NEUTROPHILS 85.3 % (40-80); PLATELET COUNT 339 10x3/uL (130-400); RBC 3.86 10x6/uL (4.00-5.40); RDW 14.1 % (11.5-14.5)
[2018-02-25 09:02] LABS: CALC OSMOLALITY 284 mosm/kg (275-300); CARBON DIOXIDE 27.5 mmol/L (21.0-32.0); CHLORIDE - SERUM 107 mmol/L (98-107); CREATININE - SERUM 0.6 mg/dL (0.6-1.3); GLUCOSE 174 mg/dL (74-106); MAGNESIUM - SERUM 1.9 mg/dL (1.8-2.4); SODIUM 141 mmol/L (136-145); UREA NITROGEN 12 mg/dL (7-18); eGFR NON AFRICAN AMERICAN > 90 mL/min (90-120)
[2018-02-25 09:04] LABS: CALCIUM 6.5 mg/dL (8.5-10.1); PHOSPHOROUS 1.1 mg/dL (2.5-4.9); POTASSIUM - SERUM 2.9 mmol/L (3.5-5.1)
[2018-02-25 09:33] VITALS: BP 180/88
[2018-02-25 15:00] VITALS: BP 148/42
[2018-02-25 20:00] VITALS: BP 149/80
[2018-02-25 20:12] LABS: PHOSPHOROUS 1.7 mg/dL (2.5-4.9); POTASSIUM - SERUM 3.4 mmol/L (3.5-5.1)
[2018-02-26] VITALS: BP 127/78
[2018-02-26 04:00] VITALS: BP 150/88
[2018-02-26 06:28] LABS: CARBON DIOXIDE 24.3 mmol/L (21.0-32.0); CHLORIDE - SERUM 107 mmol/L (98-107); POTASSIUM - SERUM 3.8 mmol/L (3.5-5.1); SODIUM 140 mmol/L (136-145)
[2018-02-26 06:48] LABS: CREATININE - SERUM 0.7 mg/dL (0.6-1.3); GLUCOSE 149 mg/dL (74-106); MAGNESIUM - SERUM 2.2 mg/dL (1.8-2.4); eGFR NON AFRICAN AMERICAN 85 mL/min (90-120)
[2018-02-26 06:50] LABS: CALC OSMOLALITY 282 mosm/kg (275-300); UREA NITROGEN 16 mg/dL (7-18)
[2018-02-26 06:51] LABS: CALCIUM 6.9 mg/dL (8.5-10.1); PHOSPHOROUS 1.3 mg/dL (2.5-4.9)
[2018-02-26 07:31] LABS: BASOPHILS 0.2 % (0-2); EOSINOPHILS 0.7 % (0-7); HEMATOCRIT 39.5 % (36.0-48.0); HEMOGLOBIN 13.8 g/dL (12-16); IMMATURE GRANULOCYTES 0.5 % (0-5); LYMPHOCYTES 8.8 % (15-50); MCH 32.4 pg (26.0-34.0); MCHC 34.9 g/dL (31.0-37.0); MCV 92.7 fL (80.0-100.0); MEAN PLATELET VOLUME 10.9 fL (7.4-10.4); MONOCYTES 5.5 % (2-11); NEUTROPHILS 84.3 % (40-80); RBC 4.26 10x6/uL (4.00-5.40); RDW 14.4 % (11.5-14.5)
[2018-02-26 07:36] LABS: PLATELET COUNT 425 10x3/uL (130-400); WBC 12.8 10x3/uL (4.8-10.8)
[2018-02-26 09:32] VITALS: BP 137/89
[2018-02-26 16:33] VITALS: BP 160/77
[2018-02-26 19:49] VITALS: BP 143/89
[2018-02-27] VITALS: BP 147/86
[2018-02-27 04:00] VITALS: BP 131/87
[2018-02-27 05:20] LABS: BASOPHILS 0.1 % (0-2); EOSINOPHILS 0.6 % (0-7); HEMATOCRIT 38.5 % (36.0-48.0); IMMATURE GRANULOCYTES 0.3 % (0-5); LYMPHOCYTES 7.9 % (15-50); MCH 32.4 pg (26.0-34.0); MCHC 33.8 g/dL (31.0-37.0); MEAN PLATELET VOLUME 10.8 fL (7.4-10.4); MONOCYTES 6.4 % (2-11); NEUTROPHILS 84.7 % (40-80); PLATELET COUNT 430 10x3/uL (130-400); RBC 4.01 10x6/uL (4.00-5.40); RDW 14.6 % (11.5-14.5); WBC 14.3 10x3/uL (4.8-10.8)
[2018-02-27 07:00] VITALS: BP 136/86
[2018-02-27 07:19] LABS: CALC OSMOLALITY 288 mosm/kg (275-300); CALCIUM 7.1 mg/dL (8.5-10.1); CARBON DIOXIDE 22.7 mmol/L (21.0-32.0); CHLORIDE - SERUM 108 mmol/L (98-107); CREATININE - SERUM 0.7 mg/dL (0.6-1.3); GLUCOSE 153 mg/dL (74-106); MAGNESIUM - SERUM 2.3 mg/dL (1.8-2.4); PHOSPHOROUS 1.8 mg/dL (2.5-4.9); POTASSIUM - SERUM 4.1 mmol/L (3.5-5.1); SODIUM 141 mmol/L (136-145); UREA NITROGEN 26 mg/dL (7-18); eGFR NON AFRICAN AMERICAN 85 mL/min (90-120)
[2018-02-27 13:22] VITALS: BP 104/70
[2018-02-27 19:58] VITALS: BP 151/98
[2018-02-27 20:35] VITALS: BP 147/81
[2018-02-28] VITALS: BP 147/87
[2018-02-28 04:00] VITALS: BP 147/84
[2018-02-28 06:49] LABS: BASOPHILS 0.1 % (0-2); EOSINOPHILS 0.4 % (0-7); HEMATOCRIT 40.9 % (36.0-48.0); HEMOGLOBIN 13.9 g/dL (12-16); IMMATURE GRANULOCYTES 0.3 % (0-5); LYMPHOCYTES 9.2 % (15-50); MCH 32.3 pg (26.0-34.0); MCV 94.9 fL (80.0-100.0); MEAN PLATELET VOLUME 10.5 fL (7.4-10.4); MONOCYTES 6.3 % (2-11); NEUTROPHILS 83.7 % (40-80); PLATELET COUNT 366 10x3/uL (130-400); RBC 4.31 10x6/uL (4.00-5.40); RDW 14.4 % (11.5-14.5); WBC 12.2 10x3/uL (4.8-10.8)
[2018-02-28 07:36] LABS: CALC OSMOLALITY 289 mosm/kg (275-300); CARBON DIOXIDE 22.5 mmol/L (21.0-32.0); CHLORIDE - SERUM 109 mmol/L (98-107); CREATININE - SERUM 0.6 mg/dL (0.6-1.3); GLUCOSE 120 mg/dL (74-106); MAGNESIUM - SERUM 2.3 mg/dL (1.8-2.4); POTASSIUM - SERUM 4.3 mmol/L (3.5-5.1); SODIUM 142 mmol/L (136-145); UREA NITROGEN 30 mg/dL (7-18); eGFR NON AFRICAN AMERICAN > 90 mL/min (90-120)
[2018-02-28 07:42] LABS: CALCIUM 6.9 mg/dL (8.5-10.1); PHOSPHOROUS 2.4 mg/dL (2.5-4.9)
[2018-02-28 08:30] VITALS: BP 164/86
[2018-02-28 18:10] VITALS: BP 166/90
[2018-03-01 01:06] VITALS: BP 167/77
[2018-03-01 05:17] VITALS: BP 154/74
[2018-03-01 06:54] LABS: CALC OSMOLALITY 290 mosm/kg (275-300); CALCIUM 7.1 mg/dL (8.5-10.1); CARBON DIOXIDE 22.1 mmol/L (21.0-32.0); CHLORIDE - SERUM 109 mmol/L (98-107); CREATININE - SERUM 0.5 mg/dL (0.6-1.3); GLUCOSE 94 mg/dL (74-106); MAGNESIUM - SERUM 2.3 mg/dL (1.8-2.4); POTASSIUM - SERUM 4.6 mmol/L (3.5-5.1); SODIUM 143 mmol/L (136-145); UREA NITROGEN 30 mg/dL (7-18); eGFR NON AFRICAN AMERICAN > 90 mL/min (90-120)
[2018-03-01 07:06] LABS: BASOPHILS 0.1 % (0-2); EOSINOPHILS 1.1 % (0-7); HEMATOCRIT 36.3 % (36.0-48.0); HEMOGLOBIN 12.3 g/dL (12-16); IMMATURE GRANULOCYTES 0.3 % (0-5); LYMPHOCYTES 10.4 % (15-50); MCH 32.5 pg (26.0-34.0); MCHC 33.9 g/dL (31.0-37.0); MEAN PLATELET VOLUME 10.7 fL (7.4-10.4); NEUTROPHILS 81.1 % (40-80); PLATELET COUNT 419 10x3/uL (130-400); RBC 3.78 10x6/uL (4.00-5.40); RDW 14.4 % (11.5-14.5); WBC 11.5 10x3/uL (4.8-10.8)
[2018-03-01 07:56] LABS: INR 1.12 (0.85-1.17)
[2018-03-01 08:16] VITALS: BP 149/88
[2018-03-01 12:33] VITALS: BP 176/82
[2018-03-01 16:32] VITALS: BP 152/90
[2018-03-01 20:59] VITALS: BP 168/95
[2018-03-02 15:15] LABS: CALCIUM 8.1 mg/dL (8.5-10.1)
[2018-03-02 15:18] LABS: CREATININE - SERUM 1.2 mg/dL (0.6-1.3); MAGNESIUM - SERUM 3.1 mg/dL (1.8-2.4); PHOSPHOROUS 2.8 mg/dL (2.5-4.9)
[2018-03-02 15:19] LABS: ANION GAP 23.6 mmol/L (8-16); CARBON DIOXIDE 14.8 mmol/L (21.0-32.0)
[2018-03-02 15:29] LABS: POTASSIUM - SERUM 7.4 mmol/L (3.5-5.1)
[2018-03-02 20:06] VITALS: BP 141/86
[2018-03-03 04:26] VITALS: BP 158/79
[2018-03-03 06:10] LABS: BASOPHILS 0.1 % (0-2); EOSINOPHILS 0.4 % (0-7); HEMATOCRIT 37.2 % (36.0-48.0); HEMOGLOBIN 12.3 g/dL (12-16); IMMATURE GRANULOCYTES 0.3 % (0-5); LYMPHOCYTES 9.2 % (15-50); MCH 31.9 pg (26.0-34.0); MCHC 33.1 g/dL (31.0-37.0); MCV 96.6 fL (80.0-100.0); MEAN PLATELET VOLUME 10.8 fL (7.4-10.4); MONOCYTES 5.2 % (2-11); NEUTROPHILS 84.8 % (40-80); PLATELET COUNT 398 10x3/uL (130-400); RBC 3.85 10x6/uL (4.00-5.40); RDW 14.5 % (11.5-14.5); WBC 12.1 10x3/uL (4.8-10.8)
[2018-03-03 06:16] LABS: ALBUMIN 2.9 g/dL (3.4-5.0); BILIRUBIN - TOTAL 0.44 mg/dL (0.2-1.3); CALCIUM 8.3 mg/dL (8.5-10.1); CREATININE - SERUM 0.9 mg/dL (0.6-1.3); MAGNESIUM - SERUM 3.1 mg/dL (1.8-2.4); PHOSPHOROUS 2.5 mg/dL (2.5-4.9)
[2018-03-03 06:18] LABS: ANION GAP 18.2 mmol/L (8-16); CARBON DIOXIDE 19.6 mmol/L (21.0-32.0); POTASSIUM - SERUM 4.8 mmol/L (3.5-5.1)
[2018-03-03 08:20] VITALS: BP 138/92
[2018-03-03 12:38] VITALS: BP 146/90
[2018-03-03 17:06] VITALS: BP 136/88
[2018-03-03 20:29] VITALS: BP 147/83
[2018-03-04 05:12] VITALS: BP 124/82
[2018-03-04 06:02] LABS: BASOPHILS 0.1 % (0-2); EOSINOPHILS 2.9 % (0-7); HEMATOCRIT 32.5 % (36.0-48.0); HEMOGLOBIN 10.8 g/dL (12-16); IMMATURE GRANULOCYTES 0.4 % (0-5); LYMPHOCYTES 12.6 % (15-50); MCH 32.4 pg (26.0-34.0); MCHC 33.2 g/dL (31.0-37.0); MCV 97.6 fL (80.0-100.0); MEAN PLATELET VOLUME 10.5 fL (7.4-10.4); MONOCYTES 5.8 % (2-11); NEUTROPHILS 78.2 % (40-80); PLATELET COUNT 326 10x3/uL (130-400); RBC 3.33 10x6/uL (4.00-5.40); RDW 14.1 % (11.5-14.5); WBC 9.3 10x3/uL (4.8-10.8)
[2018-03-04 06:14] LABS: CALC OSMOLALITY 282 mosm/kg (275-300); CALCIUM 7.9 mg/dL (8.5-10.1); CHLORIDE - SERUM 105 mmol/L (98-107); CREATININE - SERUM 0.7 mg/dL (0.6-1.3); GLUCOSE 140 mg/dL (74-106); PHOSPHOROUS 2.2 mg/dL (2.5-4.9); POTASSIUM - SERUM 4.8 mmol/L (3.5-5.1); SODIUM 137 mmol/L (136-145); eGFR NON AFRICAN AMERICAN 85 mL/min (90-120)
[2018-03-04 06:19] LABS: UREA NITROGEN 32 mg/dL (7-18)
[2018-03-04 08:45] VITALS: BP 155/85
[2018-03-04 12:45] VITALS: BP 140/81
[2018-03-04 20:00] VITALS: BP 152/86
[2018-03-05 04:00] VITALS: BP 130/80
[2018-03-05 16:02] VITALS: BP 153/84
[2018-03-05 20:00] VITALS: BP 127/75
[2018-03-06 04:00] VITALS: BP 120/69
[2018-03-06 08:17] LABS: ALKALINE PHOSPHATASE 83 U/L (46-116); ALT (SGPT) 64 U/L (10-68); BILIRUBIN - TOTAL 0.55 mg/dL (0.2-1.3); CALC OSMOLALITY 270 mosm/kg (275-300); CALCIUM 9.3 mg/dL (8.5-10.1); CARBON DIOXIDE 19.7 mmol/L (21.0-32.0); CHLORIDE - SERUM 102 mmol/L (98-107); CREATININE - SERUM 0.7 mg/dL (0.6-1.3); GLUCOSE 113 mg/dL (74-106); POTASSIUM - SERUM 3.9 mmol/L (3.5-5.1); PROTEIN - SERUM 6.3 g/dL (6.4-8.2); SODIUM 134 mmol/L (136-145); UREA NITROGEN 19 mg/dL (7-18); eGFR NON AFRICAN AMERICAN 85 mL/min (90-120)
[2018-03-06 12:33] VITALS: BP 145/82
[2018-03-06 17:34] VITALS: BP 126/74
[2018-03-06 19:50] VITALS: BP 132/73
[2018-03-07 04:00] VITALS: BP 120/70; BP 181/90
[2018-03-07 08:27] VITALS: BP 124/77
[2018-03-07 12:18] VITALS: BP 141/76
[2018-03-07 16:49] VITALS: BP 129/72
[2018-03-07 20:00] VITALS: BP 130/74
[2018-03-08 04:00] VITALS: BP 112/69
[2018-03-08 05:41] LABS: BASOPHILS 0.1 % (0-2); EOSINOPHILS 1.8 % (0-7); HEMATOCRIT 32.5 % (36.0-48.0); HEMOGLOBIN 11.1 g/dL (12-16); IMMATURE GRANULOCYTES 2.1 % (0-5); LYMPHOCYTES 12.2 % (15-50); MCH 31.4 pg (26.0-34.0); MCHC 34.2 g/dL (31.0-37.0); MCV 91.8 fL (80.0-100.0); MEAN PLATELET VOLUME 10.4 fL (7.4-10.4); MONOCYTES 5.5 % (2-11); NEUTROPHILS 78.3 % (40-80); PLATELET COUNT 311 10x3/uL (130-400); RBC 3.54 10x6/uL (4.00-5.40); RDW 13.2 % (11.5-14.5); WBC 8.2 10x3/uL (4.8-10.8)
[2018-03-08 06:03] LABS: CALC OSMOLALITY 266 mosm/kg (275-300); CALCIUM 10.3 mg/dL (8.5-10.1); CARBON DIOXIDE 19.5 mmol/L (21.0-32.0); CHLORIDE - SERUM 98 mmol/L (98-107); CREATININE - SERUM 0.7 mg/dL (0.6-1.3); GLUCOSE 117 mg/dL (74-106); POTASSIUM - SERUM 3.6 mmol/L (3.5-5.1); SODIUM 132 mmol/L (136-145); eGFR NON AFRICAN AMERICAN 85 mL/min (90-120)
[2018-03-08 06:09] LABS: UREA NITROGEN 14 mg/dL (7-18)
[2018-03-08] MEDS ORDERED: IBUPROFEN400 MG PO (07:12)
[2018-03-08] MEDS ORDERED: ACETAMINOPHEN325 MG PO (07:12)
[2018-03-08] MEDS ORDERED: LOMOTIL 2.5-0.1 EAC1 PO (07:13)
[2018-03-08 08:03] VITALS: BP 129/79
[2018-03-08 16:25] VITALS: BP 109/64
== END 2018-03-08 17:06 | DRG 330 ==
LOC: D.ER 21:08 → D.MS 02-14 00:38
PROVIDERS: Family Medicine; Internal Medicine Cardiovascular Disease; Internal Medicine Gastroenterology; Specialist; Surgery
PROC: 0D1B0Z4 Bypass Ileum to Cutaneous, Open Approach (ICD-10-PCS; 2018-02-17)
PROC: 0DNL4ZZ Release Transverse Colon, Percutaneous Endoscopic Approach (ICD-10-PCS; 2018-02-17)
PROC: 0DTN0ZZ Resection of Sigmoid Colon, Open Approach (ICD-10-PCS; principal; 2018-02-17 11:45)
PROC: 02H633Z Insertion of Infusion Device into Right Atrium, Percutaneous Approach (ICD-10-PCS; 2018-02-24)
PROC: B2141ZZ Fluoroscopy of Right Heart using Low Osmolar Contrast (ICD-10-PCS; 2018-02-24)
PROC: B244ZZZ Ultrasonography of Right Heart (ICD-10-PCS; 2018-02-24)
PROC: 0W9G30Z Drainage of Peritoneal Cavity with Drainage Device, Percutaneous Approach (ICD-10-PCS; 2018-03-01)
PROC: 0W2GX0Z Change Drainage Device in Peritoneal Cavity, External Approach (ICD-10-PCS; 2018-03-05)
DX: K57.32 Diverticulitis of large intestine without perforation or abscess without bleeding (principal); T81.43XA Infection following a procedure, organ and space surgical site, initial encounter; K56.7 Ileus, unspecified; N17.9 Acute kidney failure, unspecified; E87.2 Acidosis; F32.9 Major depressive disorder, single episode, unspecified; F41.9 Anxiety disorder, unspecified; R31.29 Other microscopic hematuria; M51.9 Unspecified thoracic, thoracolumbar and lumbosacral intervertebral disc disorder; Z88.1 Allergy status to other antibiotic agents; D73.3 Abscess of spleen; R94.31 Abnormal electrocardiogram [ECG] [EKG]; E87.5 Hyperkalemia; N13.9 Obstructive and reflux uropathy, unspecified; E83.51 Hypocalcemia

== ENCOUNTER 2018-03-08 16:25 | Inpatient (IN) | payer MEDICARE, OTHER ==
[~2018-03-08] VITALS: Ht 152.4 cm; Wt 77.1 kg
--- NOTE | ~2018-03-08 | RHP ---
PATIENT: MATEUSZ PIZARRO MEDICAL RECORD: [id number] ACCOUNT: [id number] LOCATION:[id number] : [birth year] ADMISSION DATE: 03/08/18 REHABILITATION HISTORY AND PHYSICAL EXAMINATION POST ADMISSION PHYSICIAN EXAMINATION POST-ADMISSION PHYSICAL EXAMINATION AND HISTORY AND PHYSICAL DATE OF ADMISSION: 03/08/2018 ADMITTING DIAGNOSIS: Disuse myopathy. HISTORY OF PRESENT ILLNESS: The patient is admitted to inpatient rehab for neurological condition of disuse myopathy. She is an 82-year-old female patient, who presented to the Emergency Room with generalized abdominal pain, constipation that had worsened. She had been seen in her PCP office, but symptoms did not resolve. She was hospitalized in October and November of this year along with outpatient IV Zosyn therapy for recurrent sigmoid diverticulitis, non-invasive success of symptoms secondary to her advanced age. In the ED, she received IV Levaquin and had a cutaneous reaction to that and was discontinued. A CT of the abdomen showed uncomplicated sigmoid diverticulitis. Surgery was deferred over the summer secondary to advanced age and previous positive response to antibiotics. General surgery was consulted and she underwent a lap sig on 02/17 and had a sigmoid colectomy with diverting ileostomy. Post surgery, she developed some complications including some mild respiratory distress. Had an abnormal EKG. There was a slight elevation inferiorly and some mild presacral changes that have been consistent with acute infarct in the past. A later EKG looked fairly similar to baseline. On 03/02, she had acute kidney injury with severe hyperkalemia the day after her Pruett was removed. Hyperkalemia was closely monitored. Her renal function was improving. She had been followed by general surgery, interventional radiology, gastroenterology, cardiology, nephrology during her acute stay. She has had an extended acute hospital stay, is very weak and debilitated. She had had some confusion requiring O2, new colostomy. Recent drains had to been discontinued on 03/07. She is debilitated. She has impaired mobility, self-care deficit, telemetry, and pain. Her daughter has been learning the patient's colostomy care. Ms. Pizarro has proximal muscle weakness with difficulty rising from bed to chair. She lives at home with her and was independent with her mobility and was independent with ADLs in the past except using a shower bench on occasion. She and her family plan on her returning home and her getting back to her prior level of functioning. Comorbidities in this patient include abdominal pain, diverticulitis, status post partial colectomy, otytq-vy-fmsicfy sigmoid diverticulitis, abdominal pain, microscopic anemia, history of depression, lumbar disc disease, nutritional problems, acute kidney failure, hyperkalemia. PAST MEDICAL HISTORY: Significant for recurrent sigmoid diverticulitis, depression, anxiety, allergic rhinitis, lumbago, lumbar disc disease, arthritis, chronic back pain, and depression. PAST SURGICAL HISTORY: Includes cholecystectomy, sinus surgery. She has had a salivary gland removed, discectomy, left elbow surgery, and cataract surgery. ALLERGIES: SULFA DRUGS. SHE IS ALLERGIC TO CODEINE, OXYCODONE, LEVAQUIN, AND HISTORY AND PHYSICAL [id number] MATEUSZ PIZARRO HYDROCANTHONY. CURRENT MEDICATIONS: Include Ativan 0.5 mg b.i.d., Carafate 1 gram t.i.d. q.a.c., Metamucil wafers. She is on Floranex 460 mg daily, BuSpar 10 mg b.i.d. with meals, Voltaren gel 2 grams q.i.d., tramadol 50 mg every 6 hours p.r.n., Phazyme 125 q.i.d., Zofran 4 mg every 6 hours p.r.n., Ativan 1 mg at bedtime, Motrin 400 mg every 6 hours p.r.n., Levsin 0.125 mg every 4 hours p.r.n., Pepcid 10 mg b.i.d., Colace 100 mg at bedtime, Lomotil 1 tab b.i.d., citalopram 30 mg daily, and Tylenol 650 every 6 hours p.r.n. HABITS: No alcohol or tobacco use. FAMILY HISTORY: Noncontributory. SOCIAL HISTORY: The patient hopes to return back home and get back to her prior level of functioning. REVIEW OF SYSTEMS: GENERAL: Does complain of weakness and fatigue. HEENT: Denies cold, cough, or congestion. CARDIOVASCULAR: Denies chest pain. PHYSICAL EXAMINATION: VITAL SIGNS: Stable, afebrile. GENERAL: Elderly female, in no acute distress upon exam. HEENT: Normocephalic and atraumatic. Mucosa moist. NECK: Supple. No lymphadenopathy. LUNGS: Clear at this time. HEART: Regular rate and rhythm. ABDOMEN: Benign. EXTREMITIES: No clubbing, cyanosis or edema. NEUROLOGIC: She does have noted weakness. LABORATORY DATA: White count of 7.6, H&H of 11 and 32, and platelet count was noted to be 295. Her sodium is 134, potassium 4.1, BUN and creatinine of 16 and 0.8, and blood sugar is noted to be 110. ASSESSMENT: This is an 82-year-old female patient admitted to the rehab with a working diagnosis of disuse myopathy. The patient has potential to make improvement. We will institute the following multidisciplinary therapies including, but not limited to physical, occupational, respiratory, speech, nutritional services, prosthetics and orthotics. Given her complex medical condition and risks for more complications, rehabilitation services cannot be provided at a low level of care such as a nursing home facility. PLAN: 1. Admit to [facility] for intensive inpatient therapy to include the following disciplines: A. Physical therapy to improve gait, all transfer skills and bed mobility to a modified independent level. B. Occupational therapy to improve activities of daily living to a modified independent level. C. Case management to assist with discharge planning and placement options. D. Nutrition to assist with nutritional needs. E. Rehabilitation nursing to assist in monitoring the patient's underlying HISTORY AND PHYSICAL [id number] MATEUSZ PIZARRO medical conditions and to assist with any type of bowel or bladder management. 2. The patient's current medications and medical care will be continued. 3. The patient will be placed on standard fall precautions. 4. The patient's estimated length of stay is approximately 7-10 days. 5. We will discuss this patient during care team staff meeting this week. TRANSINT:[id number] Voice Confirmation ID: [id number] DOCUMENT ID: [id number] ISRRAEL notes whether there has been none or any medical/functional change since admission: - No change since preadmission screen. ISRRAEL attests patient continues to be appropriate for IRF: - Continues to be appropriate. BURAK GRIFFITHS MD at 1812 CC: [id number] DICTATION DATE: 03/09/18825 ROOM SERVICE FOOD SERVICE ATTENDANT: 03/09/1857 ADM IN [place] [id number] [place] [address]
[~2018-03-08 16:25] MED LIST changes: +ACETAMINOPHEN325 MG PO; +ATIVAN0.5 MG PO; +B COMPLEX SL; +BUSPAR10 MG PO; +BUSPAR5 MG PO; +CBD HEMP OIL SL; +COLACE100 MG PO; +FAMOTIDINE10 MG PO; +FIBER THERAPY1368 GM PO; +GAS-X125 M1 PO; +IBUPROFEN400 MG PO; +LOMOTIL 2.5-0.1 EAC1 PO; +VITAMIN D3 PO
[2018-03-08 18:13] VITALS: BP 128/81
[2018-03-08 19:00] VITALS: BP 128/81
[2018-03-09 05:52] LABS: BASOPHILS 0.1 % (0-2); EOSINOPHILS 2.4 % (0-7); HEMATOCRIT 32.6 % (36.0-48.0); IMMATURE GRANULOCYTES 1.7 % (0-5); LYMPHOCYTES 13.7 % (15-50); MCH 31.3 pg (26.0-34.0); MCHC 33.7 g/dL (31.0-37.0); MCV 92.6 fL (80.0-100.0); MEAN PLATELET VOLUME 10.2 fL (7.4-10.4); MONOCYTES 6.8 % (2-11); NEUTROPHILS 75.3 % (40-80); PLATELET COUNT 295 10x3/uL (130-400); RBC 3.52 10x6/uL (4.00-5.40); RDW 13.5 % (11.5-14.5); WBC 7.6 10x3/uL (4.8-10.8)
[2018-03-09 06:18] LABS: ANION GAP 19.6 mmol/L (8-16); CALCIUM 10.9 mg/dL (8.5-10.1); CARBON DIOXIDE 19.5 mmol/L (21.0-32.0); CREATININE - SERUM 0.8 mg/dL (0.6-1.3); POTASSIUM - SERUM 4.1 mmol/L (3.5-5.1)
[2018-03-09 08:00] VITALS: BP 137/77
[2018-03-09 12:56] VITALS: Ht 152.4 cm; Wt 77.1 kg
[2018-03-09 19:00] VITALS: BP 115/65
[2018-03-10 06:20] LABS: BASOPHILS 0.1 % (0-2); EOSINOPHILS 2.4 % (0-7); HEMATOCRIT 33.3 % (36.0-48.0); HEMOGLOBIN 11.2 g/dL (12-16); IMMATURE GRANULOCYTES 1.4 % (0-5); LYMPHOCYTES 17.5 % (15-50); MCH 31.5 pg (26.0-34.0); MCHC 33.6 g/dL (31.0-37.0); MCV 93.5 fL (80.0-100.0); MEAN PLATELET VOLUME 10.1 fL (7.4-10.4); MONOCYTES 7.6 % (2-11); PLATELET COUNT 294 10x3/uL (130-400); RBC 3.56 10x6/uL (4.00-5.40); RDW 13.5 % (11.5-14.5)
[2018-03-10 06:36] LABS: ANION GAP 17.2 mmol/L (8-16); CALCIUM 10.8 mg/dL (8.5-10.1); CARBON DIOXIDE 20.5 mmol/L (21.0-32.0); CREATININE - SERUM 0.8 mg/dL (0.6-1.3); POTASSIUM - SERUM 4.7 mmol/L (3.5-5.1)
[2018-03-10 08:00] VITALS: BP 141/66
[2018-03-10 19:00] VITALS: BP 144/72
[2018-03-11 08:00] VITALS: BP 131/77
[2018-03-11 19:00] VITALS: BP 134/75
[2018-03-12 08:00] VITALS: BP 129/80
[2018-03-12 19:00] VITALS: BP 112/78
[2018-03-13 08:00] VITALS: BP 134/80
[2018-03-13 19:30] VITALS: BP 146/85
[2018-03-14 08:57] VITALS: BP 120/72
[2018-03-14 20:11] VITALS: BP 129/75
[2018-03-15 05:49] LABS: BASOPHILS 0.2 % (0-2); HEMOGLOBIN 11.1 g/dL (12-16); IMMATURE GRANULOCYTES 1.5 % (0-5); LYMPHOCYTES 17.3 % (15-50); MCH 31.6 pg (26.0-34.0); MCHC 34.7 g/dL (31.0-37.0); MCV 91.2 fL (80.0-100.0); MEAN PLATELET VOLUME 9.5 fL (7.4-10.4); MONOCYTES 6.8 % (2-11); NEUTROPHILS 72.2 % (40-80); PLATELET COUNT 331 10x3/uL (130-400); RBC 3.51 10x6/uL (4.00-5.40); RDW 13.5 % (11.5-14.5)
[2018-03-15 05:59] LABS: ANION GAP 17.8 mmol/L (8-16); CALCIUM 10.8 mg/dL (8.5-10.1); CARBON DIOXIDE 20.7 mmol/L (21.0-32.0); CREATININE - SERUM 0.8 mg/dL (0.6-1.3); POTASSIUM - SERUM 4.5 mmol/L (3.5-5.1)
[2018-03-15 08:00] VITALS: BP 143/92
[2018-03-15 21:20] VITALS: BP 139/90
[2018-03-16] MEDS ORDERED: ATIVAN0.5 MG PO (16:30)
[2018-03-16] MEDS ORDERED: VOLTAREN100 GM TOPICAL (16:32)
[2018-03-16 19:00] VITALS: BP 125/70
[2018-03-17 07:18] LABS: BASOPHILS 0.2 % (0-2); EOSINOPHILS 1.9 % (0-7); HEMATOCRIT 31.8 % (36.0-48.0); HEMOGLOBIN 10.8 g/dL (12-16); IMMATURE GRANULOCYTES 1.7 % (0-5); LYMPHOCYTES 16.5 % (15-50); MCH 30.9 pg (26.0-34.0); MCV 90.9 fL (80.0-100.0); MONOCYTES 6.8 % (2-11); NEUTROPHILS 72.9 % (40-80); PLATELET COUNT 288 10x3/uL (130-400); RDW 13.4 % (11.5-14.5); WBC 8.8 10x3/uL (4.8-10.8)
[2018-03-17 07:33] LABS: ANION GAP 17.6 mmol/L (8-16); CALCIUM 10.6 mg/dL (8.5-10.1); CARBON DIOXIDE 19.6 mmol/L (21.0-32.0); CREATININE - SERUM 0.8 mg/dL (0.6-1.3); POTASSIUM - SERUM 4.2 mmol/L (3.5-5.1)
== END 2018-03-17 08:23 | DRG 92 ==
LOC: D.REHAB 16:25
PROVIDERS: Emergency Medicine
DX: G72.89 Other specified myopathies (principal); N17.9 Acute kidney failure, unspecified; K57.32 Diverticulitis of large intestine without perforation or abscess without bleeding; J90 Pleural effusion, not elsewhere classified; E87.5 Hyperkalemia; M51.9 Unspecified thoracic, thoracolumbar and lumbosacral intervertebral disc disorder; Z90.49 Acquired absence of other specified parts of digestive tract; D64.9 Anemia, unspecified

== ENCOUNTER → 2018-04-21 08:43 | Outpatient (CLI) | payer MEDICARE, OTHER ==
[2018-03-09 12:56] VITALS: BMI 33.2
[~2018-04-21 08:43] MED LIST changes: +VOLTAREN100 GM TOPICAL
== END | disposition home or self-care (01) ==
LOC: D.RAD 08:43
DX: K57.32 Diverticulitis of large intestine without perforation or abscess without bleeding (principal)

== ENCOUNTER 2018-05-03 06:14 | Inpatient (IN) | payer MEDICARE, OTHER ==
[~2018-05-03] VITALS: Ht 152.4 cm; Wt 75.8 kg
--- NOTE | ~2018-05-03 | MORECARE ---
CASE MANAGEMENT DISCHARGE SUMMARY PATIENT: MATEUSZ ORONA UNIT: [id number] ADM DATE: 05/03/18 AGE: 82 : 37 SEX: F ROOM/BED: D.[facility] AUTHOR: KEN,DOC PHYSICIAN: REFERRING PHYSICIAN: ANETTE FINNEY MD DATE OF SERVICE: 05/04/18 Discharge Plan Patient Name: MATEUSZ ORONA Facility: [facility]:[place] : 1935 Planned Disposition: SNF w Planned Readmission Anticipated Discharge Date: Discharge Date: Expected LOS: Initial Reviewer: [email or web address] Initial Review Date: 05/04/2018 Generated: 05/04/18 1:46 pm Comments DCP- Discharge Planning Updated by [email or web address]: Magdalena Chavez on 05/04/18 11:[address] Patient Name: MATEUSZ ORONA Admission Status: Elective Accout number: [id number] Admission Date: 05-03-2018 : 1935 Admission Diagnosis: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 She was at [facility] for Skilled therapy and plans to return to complete her therapy. Cindy states she will drive her there because she gets car sick in their van. She has been dependent on the nursing staff at [facility]. She does ambulate with a walker and feeds herself. I spoke with Kavitha at [facility] and they are expecting her return. CM will continue to follow and assist with discharge planning/needs. Corporate Treasurer: Magdalena Chavez DCPIA - Discharge Planning Initial Assessment Updated by [email or web address]: Magdalena Chavze on 05/04/18 12:18 pm * Is the patient Alert and Oriented? Yes * How many steps to enter\exit or inside your home? Ramp/4 * PCP Dr. Chakraborty * Pharmacy [place] * Preadmission Environment Half-Way Facility * Facility Name [facility] * ADLs Partial Dependent * Partial ADLs (Assistance needed) Ambulation Bathing Medication Management Toileting Transfers * Equipment Bedside Commode Cane Other Shower Chair Walker * Other Equipment Handicapped accessible shower with stool * List name and contact numbers for known caregivers / representatives who currently or will assist patient after discharge: Cindy Dillard DTR - [phone] [facility] - [phone] * Verbal permission to speak to the caregivers and representatives has been obtained from the patient. Yes * Community resources currently utilized None * Additional services required to return to the preadmission environment? No * Can the patient safely return to the preadmission environment? Yes * Has this patient been hospitalized within the prior 30 days at any hospital? No External Providers External Provider: [facility] Next Contact Date: Service Request Date: Service Type: Resolution: Reviewer: Comments: Last DP export: 05/04/18 11:29 Patient Name: MATEUSZ ORONA Page [phone] at 1246 All edits/amendments must be made on the electronic document DICTATION DATE: 05/04/18 1246 TALENT ACQUISITION DIRECTOR: AIMEE 05/04/18 1246 RPT#: [id number] DC DATE: STATUS: ADM IN [facility] [address] [place] [address] END OF REPORT
--- NOTE | ~2018-05-03 | MORECARE ---
CASE MANAGEMENT DISCHARGE SUMMARY PATIENT: MATEUSZ ORONA UNIT: [id number] ADM DATE: 05/03/18 AGE: 82 : 37 SEX: F ROOM/BED: D.2233 AUTHOR: KEN,DOC PHYSICIAN: REFERRING PHYSICIAN: ANETTE FINNEY MD DATE OF SERVICE: 05/07/18 Discharge Plan Patient Name: MATEUSZ ORONA Facility: [facility]:[place] : 1935 Planned Disposition: SNF w Planned Readmission Anticipated Discharge Date: Discharge Date: Expected LOS: Initial Reviewer: [email or web address] Initial Review Date: 05/04/2018 Generated: 05/07/18 6:24 pm Comments DCP- Discharge Planning Updated by [email or web address]: Magdalena Chavez on 05/07/18 4:[address] I HAVE INFORMED NURSE PALLAVI THAT PATIENT CANNOT GO TO [facility] TOMORROW BECAUSE HER REED DID NOT RETURN. PATIENT AND 2 MALE FAMILY MEMBERS INFORMED THAT SHE WOULD BE HERE UNTIL THURSDAY WHEN REED WAS BACK. CM WILL CONTINUE TO FOLLOW AND ASSIST WITH DISCHARGE PLANNING/NEEDS. DCP- Discharge Planning Updated by [id number]: Magdalena Chavez on 05/07/18 3:[address] I have not had the REED return yet. Will need to have REED before she can discharge. I called the [facility] number and left a message to return my call. CM will continue to follow and assist with discharge planning/needs. DCP- Discharge Planning Updated by [email or web address]: Magdalena Chavez on 05/07/18 1:[address] CLINICAL AND REED PAPER WORK FAXED TO [place]. AWAITING RESPONSE. CM WILL CONTINUE TO FOLLOW AND ASSIST WITH DISCHARGE PLANNING/NEEDS. DCP- Discharge Planning Updated by [email or web address]: Magdalena Chavez on 05/07/18 12:[address] Received a call from admissions at [facility] that patient needs a REED completed before returning. REED completed, Dr. Beach in [place], I left a message that I needed a REED signed as soon as he is out of a procedure. CM will continue to follow and assist with discharge planning/needs. 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 She was at [facility] for Skilled therapy and plans to return to complete her therapy. Cindy states she will drive her there because she gets car sick in their van. She has been dependent on the nursing staff at [facility]. She does ambulate with a walker and feeds herself. I spoke with Kavitha at [facility] and they are expecting her return. CM will continue to follow and assist with discharge planning/needs. Otr Owner Operator: Magdalena Chavez DCPIA - Discharge Planning Initial Assessment Updated by [email or web address]: Magdalena Chavez on 05/04/18 12:18 pm * Is the patient Alert and Oriented? Yes * How many steps to enter\exit or inside your home? Ramp/4 * PCP Dr. Chakraborty * Pharmacy [place] * Preadmission Environment [facility] * Facility Name [facility] * ADLs Partial Dependent * Partial ADLs (Assistance needed) Ambulation Bathing Medication Management Toileting Transfers * Equipment Bedside Commode Cane Other Shower Chair Walker * Other Equipment Handicapped accessible shower with stool * List name and contact numbers for known caregivers / representatives who currently or will assist patient after discharge: Cindy [facility] - [phone] Davion [facility] [phone] * Verbal permission to speak to the caregivers and representatives has been obtained from the patient. Yes * Community resources currently utilized None * Additional services required to return to the preadmission environment? No * Can the patient safely return to the preadmission environment? Yes * Has this patient been hospitalized within the prior 30 days at any hospital? No Last DP export: 05/07/18 3:54 Patient Name: MATEUSZ ORONA Page [id number] at 3474 All edits/amendments must be made on the electronic document DICTATION DATE: 05/07/181723 PIG HANDLER: AIMEE 05/07/181723 RPT#: [id number] [place] DATE: STATUS: ADM IN [facility] [address] [place] [address] END OF REPORT
--- NOTE | ~2018-05-03 | MORECARE ---
CASE MANAGEMENT DISCHARGE SUMMARY PATIENT: MATEUSZ ORONA UNIT: [id number] ADM DATE: 05/03/18 AGE: 82 : 37 SEX: F ROOM/BED: D.[facility]3 AUTHOR: SHEILA ROGERS PHYSICIAN: REFERRING PHYSICIAN: ANETTE FINNEY MD DATE OF SERVICE: 05/04/18 Discharge Plan Patient Name: MATEUSZ ORONA Facility: [facility]:[place] : 1935 Planned Disposition: SNF w Planned Readmission Anticipated Discharge Date: Discharge Date: Expected LOS: Initial Reviewer: [email or web address] Initial Review Date: 05/04/2018 Generated: 05/04/18 1:20 pm DCPIA - Discharge Planning Initial Assessment Updated by [email or web address]: Magdalena Chavez on 05/04/18 12:18 pm * Is the patient Alert and Oriented? Yes * How many steps to enter\exit or inside your home? Ramp/4 * PCP Dr. Chakraborty * Pharmacy [place] * Preadmission Environment [facility] Facility * Facility Name [facility] * ADLs Partial Dependent * Partial ADLs (Assistance needed) Ambulation Bathing Medication Management Toileting Transfers * Equipment Bedside Commode Cane Other Shower Chair Walker * Other Equipment Handicapped accessible shower with stool * List name and contact numbers for known caregivers / representatives who currently or will assist patient after discharge: [facility] - [phone] Davion [facility] [phone] * Verbal permission to speak to the caregivers and representatives has been obtained from the patient. Yes * Community resources currently utilized None * Additional services required to return to the preadmission environment? No * Can the patient safely return to the preadmission environment? Yes * Has this patient been hospitalized within the prior 30 days at any hospital? No Patient Name: MATEUSZ ORONA Page 74986 at 1221 All edits/amendments must be made on the electronic document DICTATION DATE: 05/04/18 1220 VENEER JOINTER OFFBEARER: AIMEE 05/04/18 1220 RPT#: [id number] DC DATE: STATUS: ADM IN [facility] [address] [place] [address] END OF REPORT
--- NOTE | ~2018-05-03 | MORECARE ---
CASE MANAGEMENT DISCHARGE SUMMARY PATIENT: MATEUSZ ORONA UNIT: [id number] ADM DATE: 05/03/18 AGE: 82 : 37 SEX: F ROOM/BED: D.[facility] AUTHOR: KEN,DOC PHYSICIAN: REFERRING PHYSICIAN: ANETTE FINNEY MD DATE OF SERVICE: 05/07/18 Discharge Plan Patient Name: MATEUSZ ORONA Facility: [facility]:[place] : 1935 Planned Disposition: SNF w Planned Readmission Anticipated Discharge Date: Discharge Date: Expected LOS: Initial Reviewer: [email or web address] Initial Review Date: 05/04/2018 Generated: 05/07/18 5:54 pm Comments DCP- Discharge Planning Updated by [email or web address]: Magdalena Chavez on 05/07/18 3:[address] I have not had the REED return yet. Will need to have REED before she can discharge. I called the [place] number and left a message to return my call. CM will continue to follow and assist with discharge planning/needs. DCP- Discharge Planning Updated by [id number]: Magdalena Chavez on 05/07/18 1:[address] CLINICAL AND REED PAPER WORK FAXED TO [facility]. AWAITING RESPONSE. CM WILL CONTINUE TO FOLLOW AND ASSIST WITH DISCHARGE PLANNING/NEEDS. DCP- Discharge Planning Updated by [id number]: Magdalena Chavez on 05/07/18 12:[address] Received a call from admissions at [facility] that patient needs a REED completed before returning. REED completed, Dr. Beach in [place], I left a message that I needed a REED signed as soon as he is out of a procedure. CM will continue to follow and assist with discharge planning/needs. 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 She was at [facility] for Skilled therapy and plans to return to complete her therapy. Cindy states she will drive her there because she gets car sick in their van. She has been dependent on the nursing staff at [facility]. She does ambulate with a walker and feeds herself. I spoke with Kavitha at [facility] and they are expecting her return. CM will continue to follow and assist with discharge planning/needs. Substation Designer: Magdalena Chavez DCPIA - Discharge Planning Initial Assessment Updated by [email or web address]: Magdalena Kathy on 05/04/18 12:18 pm * Is the patient Alert and Oriented? Yes * How many steps to enter\exit or inside your home? Ramp/4 * PCP Dr. Chakraborty * Pharmacy [place] * Preadmission Environment [facility] * Facility Name [facility] * ADLs Partial Dependent * Partial ADLs (Assistance needed) Ambulation Bathing Medication Management Toileting Transfers * Equipment Bedside Commode Cane Other Shower Chair Walker * Other Equipment Handicapped accessible shower with stool * List name and contact numbers for known caregivers / representatives who currently or will assist patient after discharge: Cindy [facility] - [phone] Davion [facility] - [phone] * Verbal permission to speak to the caregivers and representatives has been obtained from the patient. Yes * Community resources currently utilized None * Additional services required to return to the preadmission environment? No * Can the patient safely return to the preadmission environment? Yes * Has this patient been hospitalized within the prior 30 days at any hospital? No Last DP export: 05/07/18 1:31 Patient Name: MATEUSZ ORONA Page [id number] at 1655 All edits/amendments must be made on the electronic document DICTATION DATE: 05/07/181653 STOCKROOM KEEPER: AIMEE 05/07/181653 RPT#: [id number] [place] DATE: STATUS: ADM IN [facility] [address] [place] [address] END OF REPORT
--- NOTE | ~2018-05-03 | MORECARE ---
CASE MANAGEMENT DISCHARGE SUMMARY PATIENT: MATEUSZ ORONA UNIT: [id number] ADM DATE: 05/03/18 AGE: 82 : 37 SEX: F ROOM/BED: D.2233 AUTHOR: KEN,DOC PHYSICIAN: REFERRING PHYSICIAN: ANETTE FINNEY MD DATE OF SERVICE: 05/11/18 Discharge Plan Patient Name: MATEUSZ ORONA Facility: [facility]:[place] : 1935 Planned Disposition: SNF w Planned Readmission Anticipated Discharge Date: Discharge Date: 05/10/2018 Expected LOS: 0 Initial Reviewer: [email or web address] Initial Review Date: 05/04/2018 Generated: 05/11/18 10:00 am Comments DCP- Discharge Planning Updated by [email or web address]: Magdalena Chavez on 05/10/18 1:[address] Received discharge order today. Faxed clinical to [facility] and called and spoke to Liz. Daughter at bedside. Denies any other needs. States they have all the DME needed. CM will continue to follow and assist with discharge planning/needs. DCP- Discharge Planning Updated by [id number]: Magdalena Chavez on 05/10/18 9:[address] Spoke with patient's daughter, she would like the patient to go home with [facility] when discharged. States she is walking much better and states this is a safe discharge plan. Daughter states "I only live about 40 steps from their house." WILMER for [facility] signed. I called Liz at [facility] and referral given. Clinical faxed to [facility]. Daughter states she will notify [facility] that she will not be returning there. CM will continue to follow and assist with discharge planning/needs. DCP- Discharge Planning Updated by [email or web address]: Maru Go on 05/09/18 2:[address] 1515 CM RECEIVED TELEPHONE CALL REGARDING DISCHARGING PATIENT BACK TO [facility] THIS PM. IN REVIEW OF CM NOTES A REED IS PENDING FOR THE PATIENT. SHE CANNOT RETURN TO FACILITY UNTIL REED DECISION HAS BEEN RECEIVED. WEEKDAY CM WILL F/U ON THURSDAY W/ REED [employer] TO FACILITATE DISCHARGE. DCP- Discharge Planning Updated by [email or web address]: Magdalena Chavez on 05/07/18 4:[address] I HAVE INFORMED NURSE PALLAVI THAT PATIENT CANNOT GO TO [facility] TOMORROW BECAUSE HER REED DID NOT RETURN. PATIENT AND 2 MALE FAMILY MEMBERS INFORMED THAT SHE WOULD BE HERE UNTIL THURSDAY WHEN REED WAS BACK. CM WILL CONTINUE TO FOLLOW AND ASSIST WITH DISCHARGE PLANNING/NEEDS. DCP- Discharge Planning Updated by [email or web address]: Magdalena Chavez on 05/07/18 3:[address] I have not had the REED return yet. Will need to have REED before she can discharge. I called the [place] number and left a message to return my call. CM will continue to follow and assist with discharge planning/needs. DCP- Discharge Planning Updated by [id number]: Magdalena Chavez on 05/07/18 1:[address] CLINICAL AND REED PAPER WORK FAXED TO [place]. AWAITING RESPONSE. CM WILL CONTINUE TO FOLLOW AND ASSIST WITH DISCHARGE PLANNING/NEEDS. DCP- Discharge Planning Updated by [id number]: Magdalena Chavez on 05/07/18 12:[address] Received a call from admissions at [facility] that patient needs a REED completed before returning. REED completed, Dr. Beach in [place], I left a message that I needed a REED signed as soon as he is out of a procedure. CM will continue to follow and assist with discharge planning/needs. 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 She was at [facility] for Skilled therapy and plans to return to complete her therapy. Cindy states she will drive her there because she gets car sick in their van. She has been dependent on the nursing staff at [facility]. She does ambulate with a walker and feeds herself. I spoke with Kavitha at [facility] and they are expecting her return. CM will continue to follow and assist with discharge planning/needs. Data Security Administrator: Magdalena Kathy DCPIA - Discharge Planning Initial Assessment Updated by [email or web address]: Magdalena Godfreycarlso on 05/04/18 12:18 pm * Is the patient Alert and Oriented? Yes * How many steps to enter\\exit or inside your home? Ramp/4 * PCP Dr. Chakraborty * Pharmacy [place] * Preadmission Environment [facility] * Facility Name [facility] * ADLs Partial Dependent * Partial ADLs (Assistance needed) Ambulation Bathing Medication Management Toileting Transfers * Equipment Bedside Commode Cane Other Shower Chair Walker * Other Equipment Handicapped accessible shower with stool * List name and contact numbers for known caregivers / representatives who currently or will assist patient after discharge: Cindy - DTR - [phone] Davion [facility] - [phone] * Verbal permission to speak to the caregivers and representatives has been obtained from the patient. Yes * Community resources currently utilized None * Additional services required to return to the preadmission environment? No * Can the patient safely return to the preadmission environment? Yes * Has this patient been hospitalized within the prior 30 days at any hospital? No Coverage Notice Reviewer: [email or web address] - Magdalena Godfreycarlos Notice Issued Date-Time: 05/10/2018 14:22 Notice Type: IM Discharge Notice Notice Delivered To: Family Member Relationship to Patient: Daughter Anesthesia Assistant Name: Cindy Delivery Method: HAND - Hand Delivered Kandice Days: Prior Verbal Notification: Recipient Understood Notice: Yes Recipient Signature: Yes Med Rec Note Co-signed by Attending: Coverage Notice Comment: IMM explained, signed by daughter per patient request, copy given, original placed on MR Last DP export: 05/10/18 1:24 Patient Name: MATEUSZ ORONA Page [id number] at 0900 All edits/amendments must be made on the electronic document DICTATION DATE: 05/11/18 09 DEPUTY SHERIFF CHIEF: AIMEE 05/11/18 09 RPT#: [id number] [place] DATE:05/10/18 STATUS: DIS IN [facility] [address] [place] [address] END OF REPORT
--- NOTE | ~2018-05-03 | MORECARE ---
CASE MANAGEMENT DISCHARGE SUMMARY PATIENT: MATEUSZ ORONA UNIT: [id number] ADM DATE: 05/03/18 AGE: 82 : 37 SEX: F ROOM/BED: D.2233 AUTHOR: KEN,DOC PHYSICIAN: REFERRING PHYSICIAN: ANETTE FINNEY MD DATE OF SERVICE: 05/09/18 Discharge Plan Patient Name: MATEUSZ ORONA Facility: [facility]:[place] : 1935 Planned Disposition: SNF w Planned Readmission Anticipated Discharge Date: Discharge Date: Expected LOS: Initial Reviewer: [id number] Initial Review Date: 05/04/2018 Generated: 05/09/18 4:33 pm Comments DCP- Discharge Planning Updated by [email or web address]: Maru Go on 05/09/18 2:[address] 1515 CM RECEIVED TELEPHONE CALL REGARDING DISCHARGING PATIENT BACK TO [facility] THIS PM. IN REVIEW OF CM NOTES A REED IS PENDING FOR THE PATIENT. SHE CANNOT RETURN TO FACILITY UNTIL REED DECISION HAS BEEN RECEIVED. DAY CM WILL F/U ON THURSDAY W/ REED [facility]OC[employer] TO FACILITATE DISCHARGE. DCP- Discharge Planning Updated by [email or web address]: Magdalena Chavez on 05/07/18 4:[address] I HAVE INFORMED NURSE PALLAVI THAT PATIENT CANNOT GO TO [facility] TOMORROW BECAUSE HER REED DID NOT RETURN. PATIENT AND 2 MALE FAMILY MEMBERS INFORMED THAT SHE WOULD BE HERE UNTIL THURSDAY WHEN REED WAS BACK. CM WILL CONTINUE TO FOLLOW AND ASSIST WITH DISCHARGE PLANNING/NEEDS. DCP- Discharge Planning Updated by [email or web address]: Magdalena Chavez on 05/07/18 3:[address] I have not had the REED return yet. Will need to have REED before she can discharge. I called the [place] number and left a message to return my call. CM will continue to follow and assist with discharge planning/needs. DCP- Discharge Planning Updated by [email or web address]: Magdalena Chavez on 05/07/18 1:[address] CLINICAL AND REED PAPER WORK FAXED TO [place]. AWAITING RESPONSE. CM WILL CONTINUE TO FOLLOW AND ASSIST WITH DISCHARGE PLANNING/NEEDS. DCP- Discharge Planning Updated by [id number]: Magdalena Chavez on 05/07/18 12:[address] Received a call from admissions at [facility] that patient needs a REED completed before returning. REED completed, Dr. Beach in [place], I left a message that I needed a REED signed as soon as he is out of a procedure. CM will continue to follow and assist with discharge planning/needs. 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 She was at [facility] for Skilled therapy and plans to return to complete her therapy. Cindy states she will drive her there because she gets car sick in their van. She has been dependent on the nursing staff at [facility]. She does ambulate with a walker and feeds herself. I spoke with Kavitha at [facility] and they are expecting her return. CM will continue to follow and assist with discharge planning/needs. Director Social Welfare: Magdalena Chavez DCPIA - Discharge Planning Initial Assessment Updated by [id number]: Magdalena Chavez on 05/04/18 12:18 pm * Is the patient Alert and Oriented? Yes * How many steps to enter\exit or inside your home? Ramp/4 * PCP Dr. Chakraborty * Pharmacy [place] * Preadmission Environment [facility] * Facility Name [facility] * ADLs Partial Dependent * Partial ADLs (Assistance needed) Ambulation Bathing Medication Management Toileting Transfers * Equipment Bedside Commode Cane Other Shower Chair Walker * Other Equipment Handicapped accessible shower with stool * List name and contact numbers for known caregivers / representatives who currently or will assist patient after discharge: Cindy - DTR - [phone] Davion [facility] [phone] * Verbal permission to speak to the caregivers and representatives has been obtained from the patient. Yes * Community resources currently utilized None * Additional services required to return to the preadmission environment? No * Can the patient safely return to the preadmission environment? Yes * Has this patient been hospitalized within the prior 30 days at any hospital? No Last DP export: 05/07/18 4:24 Patient Name: MATEUSZ ORONA Page [id number] at 1533 All edits/amendments must be made on the electronic document DICTATION DATE: 05/09/181532 CONCRETE BOOM OPERATOR: AIMEE 05/09/181532 RPT#: [id number] [place] DATE: STATUS: ADM IN [facility] [address] [place] [address] END OF REPORT
--- NOTE | ~2018-05-03 | MORECARE ---
CASE MANAGEMENT DISCHARGE SUMMARY PATIENT: MATEUSZ ORONA UNIT: [id number] ADM DATE: 05/03/18 AGE: 82 : 37 SEX: F ROOM/BED: D.2233 AUTHOR: KEN,SHEILA PHYSICIAN: REFERRING PHYSICIAN: ANETTE FINNEY MD DATE OF SERVICE: 05/07/18 Discharge Plan Patient Name: MATEUSZ ORONA Facility: [facility]:[place] : 1935 Planned Disposition: SNF w Planned Readmission Anticipated Discharge Date: Discharge Date: Expected LOS: Initial Reviewer: [email or web address] Initial Review Date: 05/04/2018 Generated: 05/07/18 3:04 pm Comments DCP- Discharge Planning Updated by [email or web address]: Magdalena Chavez on 05/07/18 12:[address] Received a call from admissions at [facility] that patient needs a REED completed before returning. REED completed, Dr. Beach in [place], I left a message that I needed a REED signed as soon as he is out of a procedure. CM will continue to follow and assist with discharge planning/needs. 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 She was at [facility] for Skilled therapy and plans to return to complete her therapy. Cindy states she will drive her there because she gets car sick in their van. She has been dependent on the nursing staff at [facility]. She does ambulate with a walker and feeds herself. I spoke with Kavitha at [facility] and they are expecting her return. CM will continue to follow and assist with discharge planning/needs. Drop Count Associate: Magdalena Chavez DCPIA - Discharge Planning Initial Assessment Updated by [email or web address]: Magdalenajesusita Chavez on 05/04/18 12:18 pm * Is the patient Alert and Oriented? Yes * How many steps to enter\exit or inside your home? Ramp/4 * PCP Dr. Chakraborty * Pharmacy [facility] * Preadmission Environment Nursing Home Facility * Facility Name [facility] * ADLs Partial Dependent * Partial ADLs (Assistance needed) Ambulation Bathing Medication Management Toileting Transfers * Equipment Bedside Commode Cane Other Shower Chair Walker * Other Equipment Handicapped accessible shower with stool * List name and contact numbers for known caregivers / representatives who currently or will assist patient after discharge: [facility] - [phone] [facility] [phone] * Verbal permission to speak to the caregivers and representatives has been obtained from the patient. Yes * Community resources currently utilized None * Additional services required to return to the preadmission environment? No * Can the patient safely return to the preadmission environment? Yes * Has this patient been hospitalized within the prior 30 days at any hospital? No Last DP export: 05/04/18 11:46 Patient Name: MATEUSZ ORONA Page 20952 at 1404 All edits/amendments must be made on the electronic document DICTATION DATE: 05/07/181403 LINER WORKER: AIMEE 05/07/181403 RPT#: [id number] DC DATE: STATUS: ADM IN [facility] [address] [place] [address] END OF REPORT
--- NOTE | ~2018-05-03 | MORECARE ---
CASE MANAGEMENT DISCHARGE SUMMARY PATIENT: MATEUSZ ORONA UNIT: [id number] ADM DATE: 05/03/18 AGE: 82 : 37 SEX: F ROOM/BED: D.[facility] AUTHOR: KEN,DOC PHYSICIAN: REFERRING PHYSICIAN: ANETTE FINNEY MD DATE OF SERVICE: 05/04/18 Discharge Plan Patient Name: MATEUSZ ORONA Facility: [facility]:[place] : 1935 Planned Disposition: SNF w Planned Readmission Anticipated Discharge Date: Discharge Date: Expected LOS: Initial Reviewer: [email or web address] Initial Review Date: 05/04/2018 Generated: 05/04/18 1:29 pm Comments DCP- Discharge Planning Updated by [email or web address]: Magdalena Chavez on 05/04/18 11:[address] Patient Name: MATEUSZ ORONA Admission Status: Elective Accout number: [id number] Admission Date: 05-03-2018 : 1935 Admission Diagnosis: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 She was at [facility] for Skilled therapy and plans to return to complete her therapy. Cindy states she will drive her there because she gets car sick in their van. She has been dependent on the nursing staff at [facility]. She does ambulate with a walker and feeds herself. I spoke with Kavitha at [facility] and they are expecting her return. CM will continue to follow and assist with discharge planning/needs. Administrative Office Manager: Magdalena Chavez DCPIA - Discharge Planning Initial Assessment Updated by [email or web address]: Magdalena Chavez on 05/04/18 12:18 pm * Is the patient Alert and Oriented? Yes * How many steps to enter\exit or inside your home? Ramp/4 * PCP Dr. Chakraborty * Pharmacy [facility] * Preadmission Environment Residential Facility * Facility Name [facility] * ADLs Partial Dependent * Partial ADLs (Assistance needed) Ambulation Bathing Medication Management Toileting Transfers * Equipment Bedside Commode Cane Other Shower Chair Walker * Other Equipment Handicapped accessible shower with stool * List name and contact numbers for known caregivers / representatives who currently or will assist patient after discharge: Cindy Dillard [facility] - [phone] [facility] - [phone] * Verbal permission to speak to the caregivers and representatives has been obtained from the patient. Yes * Community resources currently utilized None * Additional services required to return to the preadmission environment? No * Can the patient safely return to the preadmission environment? Yes * Has this patient been hospitalized within the prior 30 days at any hospital? No Last DP export: 05/04/18 11:20 Patient Name: MATEUSZ ORONA Page 60053 at 1229 All edits/amendments must be made on the electronic document DICTATION DATE: 05/04/181227 ENGINE MONITOR: AIMEE 05/04/188 RPT#: [id number] SD DATE: STATUS: ADM IN [address] [place] [address] END OF REPORT
--- NOTE | ~2018-05-03 | MORECARE ---
CASE MANAGEMENT DISCHARGE SUMMARY PATIENT: MATEUSZ ORONA UNIT: [id number] ADM DATE: 05/03/18 AGE: 82 : 37 SEX: F ROOM/BED: D.2233 AUTHOR: KEN,DOC PHYSICIAN: REFERRING PHYSICIAN: ANETTE FINNEY MD DATE OF SERVICE: 05/10/18 Discharge Plan Patient Name: MATEUSZ ORONA Facility: [facility]:[place] : 1935 Planned Disposition: SNF w Planned Readmission Anticipated Discharge Date: Discharge Date: Expected LOS: Initial Reviewer: [email or web address] Initial Review Date: 05/04/2018 Generated: 05/10/18 11:37 am Comments DCP- Discharge Planning Updated by [email or web address]: Magdalena Chavez on 05/10/18 9:[address] Spoke with patient's daughter, she would like the patient to go home with [facility] when discharged. States she is walking much better and states this is a safe discharge plan. Daughter states "I only live about 40 steps from their house." WILMER for [facility] signed. I called Liz at [facility] and referral given. Clinical faxed to [facility]. Daughter states she will notify [facility] that she will not be returning there. CM will continue to follow and assist with discharge planning/needs. DCP- Discharge Planning Updated by [email or web address]: Maru Go on 05/09/18 2:[address] 1515 CM RECEIVED TELEPHONE CALL REGARDING DISCHARGING PATIENT BACK TO [facility] THIS PM. IN REVIEW OF CM NOTES A REED IS PENDING FOR THE PATIENT. SHE CANNOT RETURN TO FACILITY UNTIL REED DECISION HAS BEEN RECEIVED. WEEKDAY CM WILL F/U ON THURSDAY W/ REED [facility]OCI[facility] TO FACILITATE DISCHARGE. DCP- Discharge Planning Updated by [email or web address]: Magdalena Chavez on 05/07/18 4:[address] I HAVE INFORMED NURSE OLIVO THAT PATIENT CANNOT GO TO [facility] TOMORROW BECAUSE HER REED DID NOT RETURN. PATIENT AND 2 MALE FAMILY MEMBERS INFORMED THAT SHE WOULD BE HERE UNTIL THURSDAY WHEN REED WAS BACK. CM WILL CONTINUE TO FOLLOW AND ASSIST WITH DISCHARGE PLANNING/NEEDS. DCP- Discharge Planning Updated by [id number]: Magdalena Chavez on 05/07/18 3:[address] I have not had the REED return yet. Will need to have REED before she can discharge. I called the [facility] Lester number and left a message to return my call. CM will continue to follow and assist with discharge planning/needs. DCP- Discharge Planning Updated by [id number]: Magdalena Chavez on 05/07/18 1:[address] CLINICAL AND REED PAPER WORK FAXED TO [facility]. AWAITING RESPONSE. CM WILL CONTINUE TO FOLLOW AND ASSIST WITH DISCHARGE PLANNING/NEEDS. DCP- Discharge Planning Updated by [email or web address]: Magdalena Chavez on 05/07/18 12:[address] Received a call from admissions at [facility] that patient needs a REED completed before returning. REED completed, Dr. Beach in [place], I left a message that I needed a REED signed as soon as he is out of a procedure. CM will continue to follow and assist with discharge planning/needs. 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 She was at [facility] for Skilled therapy and plans to return to complete her therapy. Cindy states she will drive her there because she gets car sick in their van. She has been dependent on the nursing staff at [facility]. She does ambulate with a walker and feeds herself. I spoke with Kavitha at [facility] and they are expecting her return. CM will continue to follow and assist with discharge planning/needs. Painter Bottom: Magdalena Chavez DCPIA - Discharge Planning Initial Assessment Updated by [id number]: Magdalena Chavez on 05/04/18 12:18 pm * Is the patient Alert and Oriented? Yes * How many steps to enter\\exit or inside your home? Ramp/4 * PCP Dr. Chakraborty * Pharmacy [facility] * Preadmission Environment Long Term Facility * Facility Name [facility] * ADLs Partial Dependent * Partial ADLs (Assistance needed) Ambulation Bathing Medication Management Toileting Transfers * Equipment Bedside Commode Cane Other Shower Chair Walker * Other Equipment Handicapped accessible shower with stool * List name and contact numbers for known caregivers / representatives who currently or will assist patient after discharge: Cindy [facility] - [phone] [facility] [phone] * Verbal permission to speak to the caregivers and representatives has been obtained from the patient. Yes * Community resources currently utilized None * Additional services required to return to the preadmission environment? No * Can the patient safely return to the preadmission environment? Yes * Has this patient been hospitalized within the prior 30 days at any hospital? No Last DP export: 05/09/18 2:33 Patient Name: MATEUSZ ORONA Page 00889 at 1037 All edits/amendments must be made on the electronic document DICTATION DATE: 05/10/18 1037 LENGTH CONTROL TESTER: AIMEE 05/10/18 1037 RPT#: [id number] DC DATE: STATUS: ADM IN [facility] [address] [place] [address] END OF REPORT
--- NOTE | ~2018-05-03 | MORECARE ---
CASE MANAGEMENT DISCHARGE SUMMARY PATIENT: MATEUSZ ORONA UNIT: [id number] ADM DATE: 05/03/18 AGE: 82 : 37 SEX: F ROOM/BED: D.[facility] AUTHOR: KEN,DOC PHYSICIAN: REFERRING PHYSICIAN: ANETTE FINNEY MD DATE OF SERVICE: 05/07/18 Discharge Plan Patient Name: MATEUSZ ORONA Facility: [facility]:[place] : 1935 Planned Disposition: SNF w Planned Readmission Anticipated Discharge Date: Discharge Date: Expected LOS: Initial Reviewer: [email or web address] Initial Review Date: 05/04/2018 Generated: 05/07/18 3:31 pm Comments DCP- Discharge Planning Updated by [email or web address]: Magdalena Chavez on 05/07/18 1:[address] CLINICAL AND REED PAPER WORK FAXED TO [facility]. AWAITING RESPONSE. CM WILL CONTINUE TO FOLLOW AND ASSIST WITH DISCHARGE PLANNING/NEEDS. DCP- Discharge Planning Updated by [email or web address]: Magdalena Chavez on 05/07/18 12:[address] Received a call from admissions at [facility] that patient needs a REED completed before returning. REED completed, Dr. Beach in [place], I left a message that I needed a REED signed as soon as he is out of a procedure. CM will continue to follow and assist with discharge planning/needs. 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 She was at [facility] for Skilled therapy and plans to return to complete her therapy. Cindy states she will drive her there because she gets car sick in their van. She has been dependent on the nursing staff at [facility]. She does ambulate with a walker and feeds herself. I spoke with Kavitha at [facility] and they are expecting her return. CM will continue to follow and assist with discharge planning/needs. Railroad Cook: Magdalena Godfreycarlos DCPIA - Discharge Planning Initial Assessment Updated by [email or web address]: Magdalena Chavez on 05/04/18 12:18 pm * Is the patient Alert and Oriented? Yes * How many steps to enter\exit or inside your home? Ramp/4 * PCP Dr. Chakraborty * Pharmacy [facility] * Preadmission Environment [facility] Facility * Facility Name [facility] * ADLs Partial Dependent * Partial ADLs (Assistance needed) Ambulation Bathing Medication Management Toileting Transfers * Equipment Bedside Commode Cane Other Shower Chair Walker * Other Equipment Handicapped accessible shower with stool * List name and contact numbers for known caregivers / representatives who currently or will assist patient after discharge: [facility] - [phone] [facility] - [phone] * Verbal permission to speak to the caregivers and representatives has been obtained from the patient. Yes * Community resources currently utilized None * Additional services required to return to the preadmission environment? No * Can the patient safely return to the preadmission environment? Yes * Has this patient been hospitalized within the prior 30 days at any hospital? No Last DP export: 05/07/18 1:23 Patient Name: MATEUSZ ORONA Page 34028 at 1431 All edits/amendments must be made on the electronic document DICTATION DATE: 05/07/181430 RN DISCHARGE: AIMEE 05/07/18 143 RPT#: [id number] DC DATE: STATUS: ADM IN [facility] [address] [place] [address] END OF REPORT
--- NOTE | ~2018-05-03 | MORECARE ---
CASE MANAGEMENT DISCHARGE SUMMARY PATIENT: MATEUSZ ORONA UNIT: [id number] ADM DATE: 05/03/18 AGE: 82 : 37 SEX: F ROOM/BED: D.2233 AUTHOR: KEN,DOC PHYSICIAN: REFERRING PHYSICIAN: ANETTE FINNEY MD DATE OF SERVICE: 05/10/18 Discharge Plan Patient Name: MATEUSZ ORONA Facility: [facility]:[place] : 1935 Planned Disposition: SNF w Planned Readmission Anticipated Discharge Date: Discharge Date: Expected LOS: Initial Reviewer: [email or web address] Initial Review Date: 05/04/2018 Generated: 05/10/18 11:45 am Comments DCP- Discharge Planning Updated by [email or web address]: Magdalena Chavez on 05/10/18 9:[address] Spoke with patient's daughter, she would like the patient to go home with [facility] when discharged. States she is walking much better and states this is a safe discharge plan. Daughter states "I only live about 40 steps from their house." WILMER for [facility] signed. I called Liz at [facility] and referral given. Clinical faxed to [facility]. Daughter states she will notify [facility] that she will not be returning there. CM will continue to follow and assist with discharge planning/needs. DCP- Discharge Planning Updated by [email or web address]: Maru Go on 05/09/18 2:[address] 1515 CM RECEIVED TELEPHONE CALL REGARDING DISCHARGING PATIENT BACK TO [facility] THIS PM. IN REVIEW OF CM NOTES A REED IS PENDING FOR THE PATIENT. SHE CANNOT RETURN TO FACILITY UNTIL REED DECISION HAS BEEN RECEIVED. WEEKDAY CM WILL F/U ON THURSDAY W/ REED ASSOCIATES TO FACILITATE DISCHARGE. DCP- Discharge Planning Updated by [email or web address]: Magdalena Chavez on 05/07/18 4:[address] I HAVE INFORMED NURSE OLIVO THAT PATIENT CANNOT GO TO [facility] TOMORROW BECAUSE HER REED DID NOT RETURN. PATIENT AND 2 MALE FAMILY MEMBERS INFORMED THAT SHE WOULD BE HERE UNTIL THURSDAY WHEN REED WAS BACK. CM WILL CONTINUE TO FOLLOW AND ASSIST WITH DISCHARGE PLANNING/NEEDS. DCP- Discharge Planning Updated by [email or web address]: Magdalena Chavez on 05/07/18 3:[address] I have not had the REED return yet. Will need to have REED before she can discharge. I called the [facility] Lester number and left a message to return my call. CM will continue to follow and assist with discharge planning/needs. DCP- Discharge Planning Updated by [email or web address]: Magdalena Chavez on 05/07/18 1:[address] CLINICAL AND REED PAPER WORK FAXED TO [facility]. AWAITING RESPONSE. CM WILL CONTINUE TO FOLLOW AND ASSIST WITH DISCHARGE PLANNING/NEEDS. DCP- Discharge Planning Updated by [email or web address]: Magdalena Chavez on 05/07/18 12:[address] Received a call from admissions at [facility] that patient needs a REED completed before returning. REED completed, Dr. Beach in [place], I left a message that I needed a REED signed as soon as he is out of a procedure. CM will continue to follow and assist with discharge planning/needs. 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 She was at [facility] for Skilled therapy and plans to return to complete her therapy. Cindy states she will drive her there because she gets car sick in their van. She has been dependent on the nursing staff at [facility]. She does ambulate with a walker and feeds herself. I spoke with Kavitha at [facility] and they are expecting her return. CM will continue to follow and assist with discharge planning/needs. Film Waxer: Magdalena Chavez DCPIA - Discharge Planning Initial Assessment Updated by [email or web address]: Magdalena Chavez on 05/04/18 12:18 pm * Is the patient Alert and Oriented? Yes * How many steps to enter\\exit or inside your home? Ramp/4 * PCP Dr. Chakraborty * Pharmacy [facility] * Preadmission Environment Group Home Facility * Facility Name [facility] * ADLs Partial Dependent * Partial ADLs (Assistance needed) Ambulation Bathing Medication Management Toileting Transfers * Equipment Bedside Commode Cane Other Shower Chair Walker * Other Equipment Handicapped accessible shower with stool * List name and contact numbers for known caregivers / representatives who currently or will assist patient after discharge: C[facility] - [phone] [facility] [phone] * Verbal permission to speak to the caregivers and representatives has been obtained from the patient. Yes * Community resources currently utilized None * Additional services required to return to the preadmission environment? No * Can the patient safely return to the preadmission environment? Yes * Has this patient been hospitalized within the prior 30 days at any hospital? No External Providers [facility] Next Contact Date: Service Request Date: Service Type: Resolution: Reviewer: Comments: Last DP export: 05/10/18 9:37 Patient Name: MATEUSZ ORONA Page 07977 at 1045 All edits/amendments must be made on the electronic document DICTATION DATE: 05/10/18 104 TICKET MACHINE OPERATOR: AIMEE 05/10/18 1044 RPT#: [id number] DC DATE: STATUS: ADM IN [facility] [address] [place] [address] END OF REPORT
--- NOTE | ~2018-05-03 | MORECARE ---
CASE MANAGEMENT DISCHARGE SUMMARY PATIENT: MATEUSZ ORONA UNIT: [id number] ADM DATE: 05/03/18 AGE: 82 : 37 SEX: F ROOM/BED: D.2233 AUTHOR: KEN,SHEILA PHYSICIAN: REFERRING PHYSICIAN: ANETTE FINNEY MD DATE OF SERVICE: 05/07/18 Discharge Plan Patient Name: MATEUSZ ORONA Facility: [facility]:[place] : 1935 Planned Disposition: SNF w Planned Readmission Anticipated Discharge Date: Discharge Date: Expected LOS: Initial Reviewer: [email or web address] Initial Review Date: 05/04/2018 Generated: 05/07/18 3:23 pm Comments DCP- Discharge Planning Updated by [email or web address]: Magdalena Chavez on 05/07/18 12:[address] Received a call from admissions at [facility] that patient needs a REED completed before returning. REED completed, Dr. Beach in [place], I left a message that I needed a REED signed as soon as he is out of a procedure. CM will continue to follow and assist with discharge planning/needs. 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 She was at [facility] for Skilled therapy and plans to return to complete her therapy. Cindy states she will drive her there because she gets car sick in their van. She has been dependent on the nursing staff at [facility]. She does ambulate with a walker and feeds herself. I spoke with Kavitha at [facility] and they are expecting her return. CM will continue to follow and assist with discharge planning/needs. Supercalender Operator Helper: Magdalena Chavez DCPIA - Discharge Planning Initial Assessment Updated by [email or web address]: Magdalena Godfreycarlos on 05/04/18 12:18 pm * Is the patient Alert and Oriented? Yes * How many steps to enter\exit or inside your home? Ramp/4 * PCP Dr. Chakraborty * Pharmacy [place] * Preadmission Environment Intermediate Facility * Facility Name [facility] * ADLs Partial Dependent * Partial ADLs (Assistance needed) Ambulation Bathing Medication Management Toileting Transfers * Equipment Bedside Commode Cane Other Shower Chair Walker * Other Equipment Handicapped accessible shower with stool * List name and contact numbers for known caregivers / representatives who currently or will assist patient after discharge: [facility] - [phone] [facility] [phone] * Verbal permission to speak to the caregivers and representatives has been obtained from the patient. Yes * Community resources currently utilized None * Additional services required to return to the preadmission environment? No * Can the patient safely return to the preadmission environment? Yes * Has this patient been hospitalized within the prior 30 days at any hospital? No External Providers External Provider: REEDREED Carey Next Contact Date: Service Request Date: Service Type: Resolution: Reviewer: Comments: Last DP export: 05/07/18 1:04 Patient Name: MATEUSZ ORONA Page [id number] at 1423 All edits/amendments must be made on the electronic document DICTATION DATE: 05/07/181421 IRRIGATOR: AIMEE 05/07/181421 RPT#: [id number] CO DATE: STATUS: ADM IN [facility] [address] [place] [address] END OF REPORT
--- NOTE | ~2018-05-03 | MORECARE ---
CASE MANAGEMENT DISCHARGE SUMMARY PATIENT: MATEUSZ ORONA UNIT: [id number] ADM DATE: 05/03/18 AGE: 82 : 37 SEX: F ROOM/BED: D.2233 AUTHOR: KEN,DOC PHYSICIAN: REFERRING PHYSICIAN: ANETTE FINNEY MD DATE OF SERVICE: 05/10/18 Discharge Plan Patient Name: MATEUSZ ORONA Facility: [facility]:[place] : 1935 Planned Disposition: SNF w Planned Readmission Anticipated Discharge Date: Discharge Date: Expected LOS: Initial Reviewer: [email or web address] Initial Review Date: 05/04/2018 Generated: 05/10/18 3:24 pm Comments DCP- Discharge Planning Updated by [email or web address]: Magdalena Chavez on 05/10/18 1:[address] Received discharge order today. Faxed clinical to [facility] and called and spoke to Liz. Daughter at bedside. Denies any other needs. States they have all the DME needed. CM will continue to follow and assist with discharge planning/needs. DCP- Discharge Planning Updated by [email or web address]: Magdalena Chavez on 05/10/18 9:[address] Spoke with patient's daughter, she would like the patient to go home with [facility] when discharged. States she is walking much better and states this is a safe discharge plan. Daughter states "I only live about 40 steps from their house." WILMER for [facility] signed. I called Liz at [facility] and referral given. Clinical faxed to [facility]. Daughter states she will notify [facility] that she will not be returning there. CM will continue to follow and assist with discharge planning/needs. DCP- Discharge Planning Updated by [email or web address]: Maru Go on 05/09/18 2:[address] 1515 CM RECEIVED TELEPHONE CALL REGARDING DISCHARGING PATIENT BACK TO [facility] THIS PM. IN REVIEW OF CM NOTES A REED IS PENDING FOR THE PATIENT. SHE CANNOT RETURN TO FACILITY UNTIL REED DECISION HAS BEEN RECEIVED. WEEKDAY CM WILL F/U ON THURSDAY W/ [employer] TO FACILITATE DISCHARGE. DCP- Discharge Planning Updated by [email or web address]: Magdalena Chavez on 05/07/18 4:[address] I HAVE INFORMED NURSE PALLAVI THAT PATIENT CANNOT GO TO [facility] TOMORROW BECAUSE HER REED DID NOT RETURN. PATIENT AND 2 MALE FAMILY MEMBERS INFORMED THAT SHE WOULD BE HERE UNTIL THURSDAY WHEN REED WAS BACK. CM WILL CONTINUE TO FOLLOW AND ASSIST WITH DISCHARGE PLANNING/NEEDS. DCP- Discharge Planning Updated by [email or web address]: Magdalena Godfreycarlos on 05/07/18 3:[address] I have not had the REED return yet. Will need to have REED before she can discharge. I called the [facility] number and left a message to return my call. CM will continue to follow and assist with discharge planning/needs. DCP- Discharge Planning Updated by [email or web address]: Magdalena Kathy on 05/07/18 1:[address] CLINICAL AND REED PAPER WORK FAXED TO [facility]. AWAITING RESPONSE. CM WILL CONTINUE TO FOLLOW AND ASSIST WITH DISCHARGE PLANNING/NEEDS. DCP- Discharge Planning Updated by [email or web address]: Magdalena Kathy on 05/07/18 12:[address] Received a call from admissions at [facility] that patient needs a REED completed before returning. REED completed, Dr. Beach in [place], I left a message that I needed a REED signed as soon as he is out of a procedure. CM will continue to follow and assist with discharge planning/needs. 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 She was at [facility] for Skilled therapy and plans to return to complete her therapy. Cindy states she will drive her there because she gets car sick in their van. She has been dependent on the nursing staff at [facility]. She does ambulate with a walker and feeds herself. I spoke with Kavitha at [facility] and they are expecting her return. CM will continue to follow and assist with discharge planning/needs. Claim Inspector: Magdalena Kathy DCPIA - Discharge Planning Initial Assessment Updated by [email or web address]: Magdalena Chavez on 05/04/18 12:18 pm * Is the patient Alert and Oriented? Yes * How many steps to enter\\exit or inside your home? Ramp/4 * PCP Dr. Chakraborty * Pharmacy [place] * Preadmission Environment [facility] Facility * Facility Name [facility] * ADLs Partial Dependent * Partial ADLs (Assistance needed) Ambulation Bathing Medication Management Toileting Transfers * Equipment Bedside Commode Cane Other Shower Chair Walker * Other Equipment Handicapped accessible shower with stool * List name and contact numbers for known caregivers / representatives who currently or will assist patient after discharge: [facility] - [phone] [facility] [phone] * Verbal permission to speak to the caregivers and representatives has been obtained from the patient. Yes * Community resources currently utilized None * Additional services required to return to the preadmission environment? No * Can the patient safely return to the preadmission environment? Yes * Has this patient been hospitalized within the prior 30 days at any hospital? No Last DP export: 05/10/18 9:45 Patient Name: MATEUSZ ORONA Page [id number] at 1424 All edits/amendments must be made on the electronic document DICTATION DATE: 05/10/181422 OUTBOUND SUPERVISOR: AIMEE 05/10/181422 RPT#: [id number] GA DATE: STATUS: ADM IN [facility] [address] [place] [address] END OF REPORT
[2018-05-03 06:35] LABS: BASOPHILS 0.1 % (0-2); EOSINOPHILS 0.9 % (0-7); HEMATOCRIT 40.8 % (36.0-48.0); HEMOGLOBIN 13.4 g/dL (12-16); IMMATURE GRANULOCYTES 0.3 % (0-5); MCH 30.9 pg (26.0-34.0); MCHC 32.8 g/dL (31.0-37.0); MEAN PLATELET VOLUME 9.5 fL (7.4-10.4); MONOCYTES 4.7 % (2-11); RBC 4.34 10x6/uL (4.00-5.40); RDW 15.4 % (11.5-14.5); WBC 7.6 10x3/uL (4.8-10.8)
[2018-05-03 06:36] LABS: PLATELET COUNT 173 10x3/uL (130-400)
[2018-05-03 06:42] LABS: ANION GAP 14.3 mmol/L (8-16); CALCIUM 9.6 mg/dL (8.5-10.1); CARBON DIOXIDE 25.5 mmol/L (21.0-32.0); CREATININE - SERUM 0.8 mg/dL (0.6-1.3); POTASSIUM - SERUM 3.8 mmol/L (3.5-5.1)
[2018-05-03] MEDS ORDERED: PROBIOTIC1 EAC1 PO (07:16)
[2018-05-03] MEDS ORDERED: THERMOTABS 1 GM1 GM PO (07:17)
[2018-05-03] MEDS ORDERED: LIORESAL 10 MG10 MG PO (07:18)
[2018-05-03 07:25] VITALS: BMI 32.8
[2018-05-03 12:06] VITALS: BP 120/67
[2018-05-03 12:18] VITALS: BP 120/67; BMI 32.6
[2018-05-03 16:13] VITALS: BP 116/69
[2018-05-03 20:33] VITALS: BP 125/70
[2018-05-04 00:55] VITALS: BP 127/72
[2018-05-04 06:09] LABS: BASOPHILS 0 % (0-2); EOSINOPHILS 1.2 % (0-7); HEMATOCRIT 34.9 % (36.0-48.0); HEMOGLOBIN 11.1 g/dL (12-16); IMMATURE GRANULOCYTES 0.1 % (0-5); LYMPHOCYTES 8.8 % (15-50); MCH 30.3 pg (26.0-34.0); MCHC 31.8 g/dL (31.0-37.0); MCV 95.4 fL (80.0-100.0); MEAN PLATELET VOLUME 9.6 fL (7.4-10.4); NEUTROPHILS 84.9 % (40-80); PLATELET COUNT 185 10x3/uL (130-400); RBC 3.66 10x6/uL (4.00-5.40); RDW 15.6 % (11.5-14.5); WBC 6.7 10x3/uL (4.8-10.8)
[2018-05-04 06:20] LABS: ANION GAP 14.4 mmol/L (8-16); CALCIUM 7.6 mg/dL (8.5-10.1); CARBON DIOXIDE 24.3 mmol/L (21.0-32.0); CREATININE - SERUM 0.8 mg/dL (0.6-1.3); POTASSIUM - SERUM 3.7 mmol/L (3.5-5.1)
[2018-05-04 09:21] VITALS: BP 110/67
[2018-05-04 10:02] VITALS: BP 110/67
[2018-05-04 12:03] VITALS: BP 107/74
[2018-05-04 14:42] VITALS: Ht 152.4 cm; Wt 75.8 kg
[2018-05-04 17:12] VITALS: BP 117/68
[2018-05-04 21:01] VITALS: BP 122/53
[2018-05-05 05:58] VITALS: BP 151/87
[2018-05-05 06:19] LABS: BASOPHILS 0.1 % (0-2); EOSINOPHILS 1.7 % (0-7); HEMATOCRIT 35.9 % (36.0-48.0); HEMOGLOBIN 11.3 g/dL (12-16); IMMATURE GRANULOCYTES 0.2 % (0-5); LYMPHOCYTES 5.6 % (15-50); MCH 30.1 pg (26.0-34.0); MCHC 31.5 g/dL (31.0-37.0); MCV 95.7 fL (80.0-100.0); MEAN PLATELET VOLUME 9.8 fL (7.4-10.4); MONOCYTES 4.6 % (2-11); NEUTROPHILS 87.8 % (40-80); PLATELET COUNT 177 10x3/uL (130-400); RBC 3.75 10x6/uL (4.00-5.40); RDW 16.2 % (11.5-14.5)
[2018-05-05 06:26] LABS: WBC 8.7 10x3/uL (4.8-10.8)
[2018-05-05 06:33] LABS: CALC OSMOLALITY 281 mosm/kg (275-300); CALCIUM 8.6 mg/dL (8.5-10.1); CARBON DIOXIDE 25.4 mmol/L (21.0-32.0); CHLORIDE - SERUM 103 mmol/L (98-107); CREATININE - SERUM 0.6 mg/dL (0.6-1.3); GLUCOSE 160 mg/dL (74-106); POTASSIUM - SERUM 3.9 mmol/L (3.5-5.1); SODIUM 139 mmol/L (136-145); UREA NITROGEN 16 mg/dL (7-18); eGFR NON AFRICAN AMERICAN > 90 mL/min (90-120)
[2018-05-05 08:48] VITALS: BP 140/76
[2018-05-05 12:45] VITALS: BP 129/98
[2018-05-05 16:46] VITALS: BP 130/65
[2018-05-05 21:25] VITALS: BP 117/64
[2018-05-06 04:23] VITALS: BP 117/69
[2018-05-06 04:27] LABS: BASOPHILS 0 % (0-2); HEMATOCRIT 34.2 % (36.0-48.0); HEMOGLOBIN 10.8 g/dL (12-16); IMMATURE GRANULOCYTES 0.3 % (0-5); LYMPHOCYTES 4.9 % (15-50); MCH 30.3 pg (26.0-34.0); MCHC 31.6 g/dL (31.0-37.0); MCV 96.1 fL (80.0-100.0); MEAN PLATELET VOLUME 9.8 fL (7.4-10.4); MONOCYTES 4.6 % (2-11); NEUTROPHILS 88.2 % (40-80); PLATELET COUNT 165 10x3/uL (130-400); RBC 3.56 10x6/uL (4.00-5.40); RDW 15.9 % (11.5-14.5); WBC 7.6 10x3/uL (4.8-10.8)
[2018-05-06 04:54] LABS: CALC OSMOLALITY 288 mosm/kg (275-300); CALCIUM 7.9 mg/dL (8.5-10.1); CHLORIDE - SERUM 107 mmol/L (98-107); CREATININE - SERUM 0.7 mg/dL (0.6-1.3); GLUCOSE 144 mg/dL (74-106); POTASSIUM - SERUM 3.7 mmol/L (3.5-5.1); SODIUM 142 mmol/L (136-145); eGFR NON AFRICAN AMERICAN 85 mL/min (90-120)
[2018-05-06 04:58] LABS: UREA NITROGEN 21 mg/dL (7-18)
[2018-05-06 08:30] VITALS: BP 142/83
[2018-05-06 12:32] VITALS: BP 153/76
[2018-05-06 16:48] VITALS: BP 140/75
[2018-05-06 18:40] VITALS: BP 102/72
[2018-05-06 21:19] VITALS: BP 117/66
[2018-05-07 04:52] LABS: BASOPHILS 0 % (0-2); EOSINOPHILS 4.4 % (0-7); HEMATOCRIT 31.6 % (36.0-48.0); HEMOGLOBIN 9.8 g/dL (12-16); IMMATURE GRANULOCYTES 0.3 % (0-5); LYMPHOCYTES 12.4 % (15-50); MCH 29.9 pg (26.0-34.0); MCV 96.3 fL (80.0-100.0); MEAN PLATELET VOLUME 9.7 fL (7.4-10.4); MONOCYTES 7.2 % (2-11); NEUTROPHILS 75.7 % (40-80); PLATELET COUNT 161 10x3/uL (130-400); RBC 3.28 10x6/uL (4.00-5.40); WBC 5.7 10x3/uL (4.8-10.8)
[2018-05-07 05:14] LABS: CALC OSMOLALITY 285 mosm/kg (275-300); CALCIUM 8.1 mg/dL (8.5-10.1); CARBON DIOXIDE 26.1 mmol/L (21.0-32.0); CHLORIDE - SERUM 106 mmol/L (98-107); CREATININE - SERUM 0.6 mg/dL (0.6-1.3); GLUCOSE 113 mg/dL (74-106); POTASSIUM - SERUM 3.2 mmol/L (3.5-5.1); SODIUM 142 mmol/L (136-145); UREA NITROGEN 19 mg/dL (7-18); eGFR NON AFRICAN AMERICAN > 90 mL/min (90-120)
[2018-05-07 08:48] VITALS: BP 149/84
[2018-05-07 12:00] VITALS: BP 142/84
[2018-05-07 16:00] VITALS: BP 136/76
[2018-05-07 16:43] VITALS: BP 152/91
[2018-05-07 21:15] VITALS: BP 166/91
[2018-05-08 05:15] VITALS: BP 146/91
[2018-05-08 05:40] LABS: BASOPHILS 0.2 % (0-2); EOSINOPHILS 3.4 % (0-7); HEMATOCRIT 35.4 % (36.0-48.0); HEMOGLOBIN 11.2 g/dL (12-16); IMMATURE GRANULOCYTES 0.3 % (0-5); LYMPHOCYTES 10.3 % (15-50); MCH 30.3 pg (26.0-34.0); MCHC 31.6 g/dL (31.0-37.0); MCV 95.7 fL (80.0-100.0); MEAN PLATELET VOLUME 9.8 fL (7.4-10.4); MONOCYTES 6.9 % (2-11); NEUTROPHILS 78.9 % (40-80); PLATELET COUNT 196 10x3/uL (130-400); RDW 15.6 % (11.5-14.5); WBC 6.5 10x3/uL (4.8-10.8)
[2018-05-08 05:59] LABS: CALC OSMOLALITY 279 mosm/kg (275-300); CALCIUM 8.9 mg/dL (8.5-10.1); CARBON DIOXIDE 31.5 mmol/L (21.0-32.0); CHLORIDE - SERUM 100 mmol/L (98-107); CREATININE - SERUM 0.6 mg/dL (0.6-1.3); GLUCOSE 131 mg/dL (74-106); POTASSIUM - SERUM 3.5 mmol/L (3.5-5.1); SODIUM 139 mmol/L (136-145); eGFR NON AFRICAN AMERICAN > 90 mL/min (90-120)
[2018-05-08 06:04] LABS: UREA NITROGEN 13 mg/dL (7-18)
[2018-05-08 10:06] VITALS: BP 156/92
[2018-05-08 13:59] VITALS: BP 104/74
[2018-05-08 17:19] VITALS: BP 145/84
[2018-05-08 20:51] VITALS: BP 138/79
[2018-05-09] VITALS (7 sets, daily range): BP systolic 123–155; BP diastolic 69–88
[2018-05-10 05:00] VITALS: BP 157/80
[2018-05-10 08:47] VITALS: BP 142/66
[2018-05-10 12:00] VITALS: BP 143/69; BP 151/92
[2018-05-10] MEDS ORDERED: COLACE100 MG PO (13:54)
[2018-05-10] MEDS ORDERED: ZOFRAN ODT4 MG/UDTAB PO (13:54)
== END 2018-05-10 15:45 | disposition home health service (06) | DRG 330 ==
LOC: D.SDCHOLD 06:14 → D.MS 06:14 → D.SDCHOLD 08:00 → D.MS 12:05 → D.SDCHOLD 05-07 18:34 → D.MS 05-07 18:36
PROVIDERS: Anesthesiology; Surgery
PROC: 0DSB0ZZ Reposition Ileum, Open Approach (ICD-10-PCS; principal; 2018-05-03 08:45)
DX: K57.32 Diverticulitis of large intestine without perforation or abscess without bleeding (principal); K56.7 Ileus, unspecified; F41.8 Other specified anxiety disorders

== ENCOUNTER 2018-06-28 11:25 | Outpatient (CLI) | payer MEDICARE, OTHER ==
[~2018-06-28] VITALS: Ht 170.2 cm; Wt 75.0 kg
[~2018-06-28 11:25] MED LIST changes: +LIORESAL 10 MG10 MG PO; +PROBIOTIC1 EAC1 PO; +THERMOTABS 1 GM1 GM PO
[2018-06-28 12:12] VITALS: BP 117/65; Ht 170.2 cm; Wt 75.0 kg
== END 2018-06-28 12:26 | disposition home or self-care (01) ==
LOC: D.OPS 11:25
DX: M81.0 Age-related osteoporosis without current pathological fracture (principal); Z01.812 Encounter for preprocedural laboratory examination

== ENCOUNTER → 2018-08-18 10:24 | Outpatient (CLI) | payer MEDICARE, OTHER ==
[2018-06-28 12:12] VITALS: BMI 25.9
== END | disposition home or self-care (01) ==
LOC: D.MRI 10:24
PROVIDERS: ATTEND Family Medicine
DX: R51 Headache (principal); R42 Dizziness and giddiness

== ENCOUNTER 2019-01-04 13:39 | Outpatient (CLI) | payer MEDICARE, OTHER | END 2019-01-04 14:26 | disposition home or self-care (01) | LOC: D.OPS 13:39 | PROVIDERS: ATTEND Family Medicine | DX: M81.0 Age-related osteoporosis without current pathological fracture (principal) ==

== ENCOUNTER → 2019-04-06 12:51 | Outpatient (CLI) | payer MEDICARE, OTHER | END | disposition home or self-care (01) | LOC: D.US 12:51 | PROVIDERS: ATTEND Nurse Practitioner Family | DX: E04.0 Nontoxic diffuse goiter (principal); R22.1 Localized swelling, mass and lump, neck ==

== ENCOUNTER 2019-06-06 11:25 | Emergency (ER) | payer MEDICARE, OTHER ==
[~2019-06-06] VITALS: Ht 170.2 cm; Wt 81.8 kg
[2019-06-06 11:30] VITALS: Ht 170.2 cm; Wt 81.8 kg
[2019-06-06] MEDS ORDERED: ZYPREXA5 MG PO (11:32)
[2019-06-06] MEDS ORDERED: CYMBALTA30 MG PO (11:32)
[2019-06-06 12:23] LABS: BASOPHILS 0.1 % (0-2); EOSINOPHILS 0.2 % (0-7); HEMATOCRIT 43.8 % (36.0-48.0); HEMOGLOBIN 14.9 g/dL (12-16); IMMATURE GRANULOCYTES 0.2 % (0-5); LYMPHOCYTES 12.9 % (15-50); MCH 32.9 pg (26.0-34.0); MCV 96.7 fL (80.0-100.0); MEAN PLATELET VOLUME 9.7 fL (7.4-10.4); NEUTROPHILS 81.6 % (40-80); PLATELET COUNT 195 10x3/uL (130-400); RBC 4.53 10x6/uL (4.00-5.40); WBC 8.1 10x3/uL (4.8-10.8)
[2019-06-06 12:34] LABS: APTT 27.1 SECONDS (22.8-39.4); INR 1.05 (0.85-1.17); PROTIME 13.6 SECONDS (11.6-15.0)
[2019-06-06 12:35] LABS: CALC OSMOLALITY 291 mosm/kg (275-300); CALCIUM 9.6 mg/dL (8.5-10.1); CARBON DIOXIDE 29.3 mmol/L (21.0-32.0); CHLORIDE - SERUM 106 mmol/L (98-107); CREATININE - SERUM 0.9 mg/dL (0.6-1.3); GLUCOSE 147 mg/dL (74-106); POTASSIUM - SERUM 3.9 mmol/L (3.5-5.1); SODIUM 143 mmol/L (136-145); UREA NITROGEN 23 mg/dL (7-18); eGFR NON AFRICAN AMERICAN 64 mL/min (90-120)
[2019-06-06 12:52] LABS: ALBUMIN 3.8 g/dL (3.4-5.0); ALKALINE PHOSPHATASE 52 U/L (46-116); ALT (SGPT) 27 U/L (10-68); BILIRUBIN - TOTAL 0.33 mg/dL (0.2-1.3); CREATINE KINASE 59 UL (21-215); MAGNESIUM - SERUM 2.1 mg/dL (1.8-2.4); PROTEIN - SERUM 6.5 g/dL (6.4-8.2); THYROID STIMULATING HORMONE 0.69 uIU/mL (0.36-3.74); TROPONIN-I < 0.017 ng/mL (0.000-0.060)
[2019-06-06 13:19] LABS: APPEARANCE CLEAR (CLEAR); BILIRUBIN NEGATIVE (NEGATIVE); COLOR STRAW (YELLOW); GLUCOSE NEGATIVE (NEGATIVE); KETONE NEGATIVE (NEGATIVE); NITRITE NEGATIVE (NEGATIVE); PROTEIN TRACE mg/dL (NEGATIVE); SPECIFIC GRAVITY 1.015 (1.005-1.020); UROBILINOGEN NORMAL (NORMAL)
[2019-06-06 13:23] LABS: BACTERIA FEW /hpf (NEGATIVE); EPITHELIAL CELLS NSEEN /hpf (0-5); RED CELLS - URINE 0-5 /hpf (0-5); WHITE CELLS - URINE 0-5 /hpf (NEGATIVE)
[2019-06-06 14:25] VITALS: BP 159/92
== END 2019-06-06 14:58 | disposition home or self-care (01) ==
LOC: D.ER 11:25
PROVIDERS: Family Medicine
DX: R53.1 Weakness (principal); K21.9 Gastro-esophageal reflux disease without esophagitis

== ENCOUNTER → 2019-07-25 14:28 | Outpatient (CLI) | payer MEDICARE, OTHER ==
[2019-06-06 11:30] VITALS: BMI 28.2
[~2019-07-25 14:28] MED LIST changes: +CYMBALTA30 MG PO; +ZYPREXA5 MG PO
== END | disposition home or self-care (01) ==
LOC: D.MRI 07-20 10:00
PROVIDERS: ATTEND Nurse Practitioner Family
DX: D32.0 Benign neoplasm of cerebral meninges (principal)

== ENCOUNTER 2019-10-07 19:34 | Inpatient (IN) | payer MEDICARE, OTHER ==
[~2019-10-07] VITALS: Ht 170.2 cm; Wt 81.8 kg
--- NOTE | 2019-10-07 19:38 | NUR ---
TRAUMA BAND NUMBER [id number]
[2019-10-07] MEDS ORDERED: MELATONIN 3 MG1 TAB PO (19:49)
[2019-10-07] MEDS ORDERED: SYNTHROID50 MCG PO (19:49)
[2019-10-07] MEDS ORDERED: MULTI-DAY VITAM1 TAB PO (19:51)
--- NOTE | 2019-10-07 20:00 | NUR ---
SPOKE WITH PT DAUGHTER PER PATIENT. ADVISED PT WAS HERE AND RESTING COMFORTABLY. PT DAUGHTER WAS ADVISED STAFF WOULD CALL HER BACK IF EDP DECIDES TO ADMIT.
[2019-10-07 20:32] VITALS: BP 155/69
--- NOTE | 2019-10-07 20:32 | NUR ---
PT LYING IN BED RESTING AT THIS TIME. NO ACUTE DISTRESS NOTED, BED IN LOWEST POSITION, CALL LIGHT WITHIN REACH, WILL CONTINUE TO MONITOR.
[2019-10-07 20:34] LABS: ANION GAP 12.8 mmol/L (8-16); CALCIUM 9.8 mg/dL (8.5-10.1); CARBON DIOXIDE 26.9 mmol/L (21.0-32.0); CREATININE - SERUM 1.1 mg/dL (0.6-1.3); POTASSIUM - SERUM 3.7 mmol/L (3.5-5.1)
[2019-10-07 20:40] LABS: ALBUMIN 3.6 g/dL (3.4-5.0); BILIRUBIN - TOTAL 0.28 mg/dL (0.2-1.3); PROTEIN - SERUM 6.7 g/dL (6.4-8.2)
[2019-10-07 20:41] LABS: BASOPHILS 0 % (0-2); EOSINOPHILS 1.6 % (0-7); HEMATOCRIT 44.4 % (36.0-48.0); HEMOGLOBIN 14.5 g/dL (12-16); IMMATURE GRANULOCYTES 0.2 % (0-5); LYMPHOCYTES 38.5 % (15-50); MCH 32.4 pg (26.0-34.0); MCHC 32.7 g/dL (31.0-37.0); MCV 99.3 fL (80.0-100.0); MEAN PLATELET VOLUME 10.2 fL (7.4-10.4); MONOCYTES 7.3 % (2-11); NEUTROPHILS 52.4 % (40-80); PLATELET COUNT 206 10x3/uL (130-400); RBC 4.47 10x6/uL (4.00-5.40); RDW 12.6 % (11.5-14.5); WBC 5.8 10x3/uL (4.8-10.8)
[2019-10-07 21:15] LABS: BILIRUBIN NEGATIVE (NEGATIVE); GLUCOSE NEGATIVE (NEGATIVE); KETONE NEGATIVE (NEGATIVE); NITRITE NEGATIVE (NEGATIVE); UROBILINOGEN NORMAL (NORMAL)
[2019-10-07 21:16] LABS: BACTERIA FEW /hpf (NEGATIVE); EPITHELIAL CELLS OCC /hpf (0-5); RED CELLS - URINE OCC /hpf (0-5)
--- NOTE | 2019-10-07 21:30 | NUR ---
PT ASSISTED WITH BEDPAN AT THIS TIME. PT UNABLE TO URINATE ON BED JOHNSON. PT STATES "I GUESS I CANT GO RIGHT NOW, ILL TRY AGAIN LATER."
--- NOTE | 2019-10-07 22:12 | NUR ---
rocephin complete at this time.
--- NOTE | 2019-10-07 22:45 | NUR ---
PATIENT ARRIVED ON FLOOR VIA BED WITH ER STAFF ACCOMPANIED. NO S/S OF ACUTE DISTRESS. NO C/O AT THIS TIME. PATIENT IS A&O X4. PATIENT HAS IV IN LEFT WRIST NORMAL SALINE @ 100 ML/HR. IV IS PATENT WITHOUT REDNESS, SWELLING, OR TENDERNESS. PATIENT HAS RIGHT WRIST SPLINTED BY DR. SCHULZ, WRIST IS FRACTURED AND HAS A DEFORMITY. PATIENT HAS A RIGHT KNEE SCRATCH. DAUGHTER WAS CONTACTED AND REASSURED. CALL LIGHT WITHIN REACH. BED ALARM ON. WILL CONTINUE TO MONITOR.
[2019-10-07 23:39] VITALS: BP 176/88; Ht 170.2 cm; Wt 81.8 kg
[2019-10-08] VITALS (12 sets, daily range): BP systolic 120–166; BP diastolic 60–85
--- NOTE | 2019-10-08 | NUR ---
MONITORS STATES THAT PATIENT WILL BE ON WAIT LIST FOR HEART MONITORS. WILL CONTINUE TO MONITOR.
--- NOTE | 2019-10-08 07:43 | NUR ---
PREOPED PT FOR SURGERY, IV INFUSING, NO DISTRESS NOTED, JESSICA WRAP TO RIGHT FOREARM,
--- NOTE | 2019-10-08 08:00 | NUR ---
TAKEN TO SURGERY PER BED, SL IN PLACE TO LWRIST, JESSICA WRAP TO RIGHT FOREARM, NAIL BEDS PINK WITH GOOD BLOOD RETURN
--- NOTE | 2019-10-08 11:15 | NUR ---
RETURNED TO UNIT PER BED, NO DISTRESS NOTED, MONITOR VITALS AND PAIN, SOFT CAST TO R FOREARM, DIRECTOR OF ARCHITECTURE RESUMED
--- NOTE | 2019-10-08 18:00 | NUR ---
ARRIVES TO UNIT PER WC, O2 PER NC AT 4L, IV FLUIDS PER PORT, ALERT AND O, SITTING ON EDGE OF BED
--- NOTE | 2019-10-08 20:09 | NUR ---
PATIENT LYING DOWN IN BED COMPLAINING OF PAIN 8/10. IV IS INFILTRATED. LOOKS LIKE IT HAS BEEN FOR HOURS. LEFT ARM IS VERY SWOLLEN. PAITIENT STATES SHE HAS NOT VOIDED ALL DAY. BLADDER SCAN WILL BE DONE ON PATIENT. BED RAILS X2. CALL LIGHT AND BEDSIDE TABLE IN REACH.
--- NOTE | 2019-10-08 20:25 | NUR ---
ANSWERED PATIENT CALL LIGHT. COMPLAINING OF PAIN. PATIENT HAS NO IV ACCESS TO BOARD CERTIFIED BEHAVIORAL ANALYST FOR PAIN CONTROL AT THIS TIME. PRIOR IV INFILTRATED AND CURRENTLY HAS AN ICE PACK AT THIS TIME. REMOVED ICE PACK AND RESITED IV TO THE LEFT HAND 22G X 1 ATTEMPT. RECONNECTED PATIENT FLUIDS AND PAIN CONTROL. PROVIDED TEACHING ON HOW TO USE BOARD CERTIFIED BEHAVIORAL ANALYST PUMP. DENIES FURTHER NEEDS AT THIS TIME. CALL LIGHT REMAINS CLOSE.
--- NOTE | 2019-10-08 21:05 | NUR ---
BLADDER SCANNED PATIENT RESULT OF 487ML.
[2019-10-09] VITALS: BP 140/60
--- NOTE | 2019-10-09 03:00 | NUR ---
PATIENT MOANING AND CRYING WHEN ENTERING THE ROOM. COMPLAINING OF PAIN TO THE RIGHT UPPER EXTREMETY. ASSESSED EMAR AND SPOKE WITH CHARGE NURSE, SANJIV MALDONADO, ABOUT PROVIDING PATIENT WITH BOLUS DOSE FOR PAIN CONTROL. CHARGE NURSE STATED THAT WAS FINE. PROVIDED BOLUS DOSE OF 2 MG TO PATIENT WELL ZOFRAN FOR COMPLAINTS OF NAUSEA. FED PATIENT ICE CHIPS AND PROVIDED COMFORT TO PATIENT.
[2019-10-09 04:00] VITALS: BP 134/58
[2019-10-09 07:16] VITALS: BP 116/59
--- NOTE | 2019-10-09 07:49 | NUR ---
PT WANTS TO REPORT COMPLAINT. [facility]LI , NOTIFIED CLINICAL FACULTY. PT CALL LIGHT ON AGAIN. I CHECKED IN WITH PT AND SHE TOLD ME THAT SHE DID NOT NEED ANYTHING. WHEN I TRIED TO TURN OFF CALL LIGHT IT REMAINED ON. PT WAS HOLDING DOWN THE RED BUTTON ON THE CALL LIGHT. HAM FACER NOTIFIED PT THAT THE CLINICAL FACULTY WAS TIED UP WITH ANOTHER SITUATION AND THAT SHE WOULD BE UP TO HER ROOM SOON SHE COULD TO TALK WITH HER. PT DID NOT BELIEVE HER AND INSISTED TO STAY ON THE LIGHT. THE POLYMER TESTER TOLD HER THAT IT WAS FINE FOR HER TO STAY ON HER CALL LIGHT AND LEFT THE ROOM. I WILL CONTINUE TO MONITOR THE SITUAION.
[2019-10-09 08:42] VITALS: BP 191/88
--- NOTE | 2019-10-09 08:59 | OP ---
PATIENT NAME: MATEUSZ PIZARRO MEDICAL RECORD: [id number] :[birth year] LOCATION:[facility] ADMISSION DATE:10/07/19 SURGEON: GANESH SCHULZ DO DATE OF OPERATION: 10/08/2019 PROCEDURE PERFORMED: Right distal radius open reduction internal fixation. PREOPERATIVE DIAGNOSIS: Displaced comminuted intra-articular right distal radius fracture. POSTOPERATIVE DIAGNOSIS: Displaced comminuted intra-articular right distal radius fracture. INDICATIONS: Ms. Pizarro is an 83-year-old female who fell yesterday onto her right distal radius. She was seen in the ER and seen to have a displaced ulnarly deviated apex volar distal radius fracture, it was not open. She did not want to go home, wanted it fixed today, so she spent the night and had got her set up for surgery today. She was aware of the risks including infection, bleeding, damage to nerves and vessels in the area and tendons as well. She wanted something done surgically as it was severely deformed and painful. She was aware of all those risks include loss of function of the hand, it was very important to her due to the fact she had a very limited use of her left arm. I informed her that there was a risk of damage to the median nerve due to the fact it was right there and the tendons on the dorsal side as well with the fracture fragments. She was okay with all that and signed the consent. SURGEON: Ganesh Schulz DO DESCRIPTION OF PROCEDURE: The patient was taken to the operative suite, laid in supine position, given general anesthetic and LMA was placed. The right upper extremity was then prepped and draped in sterile fashion. Timeout was performed, everyone was in agreeance with the correct side, site, patient and procedure. She received a gram of Ancef preoperatively. The right upper extremity was exsanguinated with Esmarch and the tourniquet was inflated to 250 mmHg, it was up for 95 minutes. I then made an incision over the flexor carpi radialis tendon, made a careful dissection down the distal radius, severely comminuted and intra-articular. Once I got adequate reduction, I put a plate on the volar surface, the Medartis plate, and drilled first proximally, locking screws and then in the shaft, I removed one locking screw and re-angled it. I then noticed the radial styloid piece was still not adequately dressed and put a K-wire through it and decided to put a fragment specific plate on the radial styloid, made an incision over the radial styloid area, made careful dissection down to the radial styloid and there was a big void in the bone. I then filled it with DBX 2.5 cc of it, placed it in the fracture site and then put a radial styloid plate on. Once it was in adequate position and got adequate length screws in, the tourniquet was let down and bleeding was coagulated with the bipolar. We then irrigated and it was closed by myself and Alexis Johnson, certified surgical first grade teacher with a 3-0 Vicryl and then Prineo glue placed on the incision. She was then dressed with Adaptic, 4 x 4s, cast padding and placed a volar splint on the patient and she was awakened and taken to recovery in stable condition. BLOOD LOSS: Minimal. COMPLICATIONS: None. OPERATIVE REPORT [id number] MATEUSZ IPZARRO TOURNIQUET TIME: 95 minutes. TRANSINT:[id number] Voice Confirmation ID: [id number] DOCUMENT ID: [id number] GANESH SCHULZ DO at 0859 CC: [id number] DICTATION DATE: 10/08/19 1029 AUTOMATIC WHEEL LINE OPERATOR: 10/08/19 1612 ADM IN [facility] [address] [place] [address]
--- NOTE | 2019-10-09 09:30 | NUR ---
PT CALL LIGHT WAS ON. I ANSWERED THE CALL LIGHT AND ASKED PT WHAT I COULD HELP HER WITH. NO ANSWER. I ASKED IF SHE NEEDED SOMETHING AND SHE SHOOK HER HEAD NO. I TURNED HER LIGHT OFF AND LEFT THE ROOM. PT CALL LIGHT BACK ON BY THE TIME I GOT TO THE DESK.
--- NOTE | 2019-10-09 09:51 | HP ---
PATIENT: MATEUSZ ORONA MEDICAL RECORD: [id number] ACCOUNT: [id number] LOCATION:[facility] : [birth year] ADMISSION DATE: 10/07/19 PCP: ALBERTINA PARK MD HISTORY AND PHYSICAL EXAMINATION DATE OF ADMISSION: 10/07/2019. CHIEF COMPLAINT: Right wrist pain. HISTORY OF PRESENT ILLNESS: This 83-year-old female followed by one of our nurse practitioners, Jazmin Garcia. The patient fell in at her home complaining of pain to her right knee and right wrist. She had an obvious deformity at the right wrist. X-ray of the knee was okay. X-ray of the right wrist showed a distal radius fracture. She was admitted and seen by orthopedics. She denied any loss of consciousness. She actually slipped on a rock outside of her home. She is admitted and she has undergone ORIF of the distal radius fracture. PAST MEDICAL HISTORY: Anxiety, depression, reflux, osteoporosis, diverticulitis, hypertension, history of kidney stones, hypothyroidism followed by endocrinology, and history of meningioma. 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 ALLERGIES: REPORTEDLY TO HYDROCODONE, OXYCODONE, CODEINE, AND SULFA. HOME MEDICATIONS: Includes Colace daily, Tylenol p.r.n., Pepcid 10 mg twice a day, Cymbalta 60 mg once a day, levothyroxine 50 mcg daily, melatonin 3 mg at bedtime, Zofran ODT p.r.n. nausea, multivitamin once a day, and lorazepam 0.5 mg q.6 hours p.r.n. anxiety HABITS: No tobacco, alcohol, or drugs. SOCIAL HISTORY: She lives with her . FAMILY HISTORY: Significant for diabetes and cancer in her parents. REVIEW OF SYSTEMS: GENERAL: No major weight changes. HEENT: No particular sinus or allergy problems. RESPIRATORY: No history of asthma or emphysema. CARDIAC: No history of heart problems. GASTROINTESTINAL: She has history of diverticulitis. Partial colon resection with ileostomy then reversal. NEUROLOGIC: History of meningioma. She has no migraines or seizures. PSYCHIATRIC: Has depression and anxiety. PHYSICAL EXAMINATION: VITAL SIGNS: Temperature 98.1, pulse 104, and blood pressure 129/62, O2 sat 99%. Generally, she is easily awakened. She is postoperative. SKIN: Warm and dry. HEENT: Grossly within normal limits. NECK: Supple. HISTORY AND PHYSICAL [id number] MATEUSZ ORONA HEART: Regular rate and rhythm without murmur. LUNGS: Clear. ABDOMEN: Soft, flat, nontender. EXTREMITIES: No lower extremity edema. The right hand and wrist is wrapped in dressing postoperatively. LABORATORY DATA: Urinalysis shows few bacteria, otherwise unremarkable. CBC with a white count of 5800, hemoglobin 14.5, hematocrit 44.4. Basic metabolic panel is okay. Liver functions are okay. IMAGING: X-ray of the knees shows no acute fracture. X-ray of the right wrist with a distal radius fracture. Chest x-ray, nothing acute. ASSESSMENT: 1. Acute right distal radius fracture. 2. History of anxiety and depression. 3. Hypothyroidism. 4. History of hypertension. PLAN: She is already postoperative and doing well. We will monitor her vital signs and control her pain. Other tests and procedures as warranted. TRANSINT:[id number] Voice Confirmation ID: [id number] DOCUMENT ID: [id number] KIRAN GONZALEZ MD at 0951 CC: [id number] DICTATION DATE: 10/08/19 183 SENIOR PRINCIPAL ARCHITECT: 10/08/191925 ADM IN [facility] [address] [place] [address]
--- NOTE | 2019-10-09 10:29 | NUR ---
PT ALERT X 4. BREATH SOUNDS CLEAR BILAT, 2L O2 PER NC. IV TO LEFT HAND PATENT, DRESSING CDI. JESSICA TO RIGHT ARM, ELEVATED ON PILLOW. DENT REMOVED, WILL MONITOR. SCD'S IN USE. FAMILY AT BEDSIDE. BED LOW, CALL LIGHT IN REACH. NO OTHER NEEDS AT THIS TIME.
[2019-10-09 12:35] VITALS: BP 188/88
[2019-10-09 16:08] VITALS: BP 163/61
--- NOTE | 2019-10-09 16:40 | MORECARE ---
CASE MANAGEMENT DISCHARGE SUMMARY PATIENT: MATEUSZ ORONA UNIT: [id number] ADM DATE: 10/07/19 AGE: 83 : 37 SEX: F ROOM/BED: D.2209 AUTHOR: SHEILA ROGERS PHYSICIAN: REFERRING PHYSICIAN: KIRAN GONZALEZ MD DATE OF SERVICE: 10/09/19 Discharge Plan Patient Name: MATEUSZ ORONA Facility: [facility]:[place] : 1935 Planned Disposition: Home Anticipated Discharge Date: Discharge Date: Expected LOS: Initial Reviewer: [email or web address] Initial Review Date: 10/09/2019 Generated: 10/09/19 5:40 pm Patient Name: MATEUSZ ORONA Page 50142 at 1640 All edits/amendments must be made on the electronic document DICTATION DATE: 10/09/19 1640 TELEMEDICINE PHYSICIAN: AIMEE 10/09/19 [facility] RPT#: [id number] DC DATE: STATUS: ADM IN [facility] [address] [place] [address] END OF REPORT
--- NOTE | 2019-10-09 16:47 | MORECARE ---
CASE MANAGEMENT DISCHARGE SUMMARY PATIENT: MATEUSZ ORONA UNIT: [id number] ADM DATE: 10/07/19 AGE: 83 : 37 SEX: F ROOM/BED: D.2930 AUTHOR: SHEILA ROGERS PHYSICIAN: REFERRING PHYSICIAN: KIRAN GONZALEZ MD DATE OF SERVICE: 10/09/19 Discharge Plan Patient Name: MATEUSZ ORONA Facility: [facility]:[place] : 1935 Planned Disposition: Home Anticipated Discharge Date: Discharge Date: Expected LOS: Initial Reviewer: [email or web address] Initial Review Date: 10/09/2019 Generated: 10/09/19 5:47 pm Comments DCP- Discharge Planning Updated by [email or web address]: Magdalena Chavez on 10/09/19 3:[address] Patient Name: MATEUSZ ORONA Admission Status: ER Accout number: [id number] Admission Date: 10-07-2019 : 1935 Admission Diagnosis: Attending: KIRAN GONZALEZ Current LOS: 2 Anticipated DC Date: Planned Disposition: Home Primary Insurance: MEDICARE A & B Discharge Planning Comments: Received discharge orders. Patient is sitting on the side of the bed. She is alert and oriented. She is not wearing any oxygen. Her daughter states she has voided twice since they removed her catheter. Her daughter, Cindy, states she lives with her spouse. Cindy states "I live 40 steps away." Cindy states her mother will return home and feels this is a safe discharge. She states "I can help her if needed." States they have a flight of steps to the den and her mother will be staying in an electric recliner in the den tonight." States tomorrow they are having a hospital bed delivered to her bedroom and she will assist with her mother going up to the bedroom. I discussed the availability of home health, rehab and additional DME needs and she declines needs at this time. I informed them if they get home and decide they need home health, to notify her PCP and they will set it up for her, voiced understanding. Home today, denies needs. Wire Stitcher Machine: Magdalena Chavez DCPIA - Discharge Planning Initial Assessment Updated by [email or web address]: Magdalena Chavez on 10/09/19 4:41 pm * Is the patient Alert and Oriented? Yes * How many steps to enter\\exit or inside your home? Ramp * PCP Jazmin Armstrong at Dr Chakraborty's office * Preadmission Environment Home with Family * ADLs Partial Dependent * Partial ADLs (Assistance needed) Ambulation * Equipment Bedside [facility] Bed Kevin Lift Other Rolling Walker * Other Equipment Rollator walker Bariatric Trapeze Handicapped accessible shower * List name and contact numbers for known caregivers / representatives who currently or will assist patient after discharge: Cindy [facility] - [phone] [facility] - [phone] * Verbal permission to speak to the caregivers and representatives has been obtained from the patient. Yes * Community resources currently utilized None * Additional services required to return to the preadmission environment? No * Can the patient safely return to the preadmission environment? Yes * Has this patient been hospitalized within the prior 30 days at any hospital? No Last DP export: 10/09/19 3:40 p Patient Name: MATEUSZ ORONA Page 16674 at 1647 All edits/amendments must be made on the electronic document DICTATION DATE: 10/09/191646 DIRECTIONAL SURVEY DRAFTER: AIMEE 10/09/191646 RPT#: [id number] DC DATE: STATUS: ADM IN [facility] [address] [place] [address] END OF REPORT
--- NOTE | 2019-10-10 08:30 | MORECARE ---
CASE MANAGEMENT DISCHARGE SUMMARY PATIENT: MATEUSZ ORONA UNIT: [id number] ADM DATE: 10/07/19 AGE: 83 : 37 SEX: F ROOM/BED: D.7673 AUTHOR: SHEILA ROGERS PHYSICIAN: REFERRING PHYSICIAN: KIRAN GONZALEZ MD DATE OF SERVICE: 10/10/19 Discharge Plan Patient Name: MATEUSZ ORONA Facility: [facility]:[place] : 1935 Planned Disposition: Home Anticipated Discharge Date: Discharge Date: 10/09/2019 Expected LOS: Initial Reviewer: [email or web address] Initial Review Date: 10/09/2019 Generated: 10/10/19 9:29 am Comments DCP- Discharge Planning Updated by [email or web address]: Magdalena Chavez on 10/09/19 3:[address] Patient Name: MATEUSZ ORONA Admission Status: ER Accout number: [id number] Admission Date: 10-07-2019 : 1935 Admission Diagnosis: Attending: KIRAN GONZALEZ Current LOS: 2 Anticipated DC Date: Planned Disposition: Home Primary Insurance: MEDICARE A & B Discharge Planning Comments: Received discharge orders. Patient is sitting on the side of the bed. She is alert and oriented. She is not wearing any oxygen. Her daughter states she has voided twice since they removed her catheter. Her daughter, Cindy, states she lives with her spouse. Cindy states "I live 40 steps away." Cindy states her mother will return home and feels this is a safe discharge. She states "I can help her if needed." States they have a flight of steps to the den and her mother will be staying in an electric recliner in the den tonight." States tomorrow they are having a hospital bed delivered to her bedroom and she will assist with her mother going up to the bedroom. I discussed the availability of home health, rehab and additional DME needs and she declines needs at this time. I informed them if they get home and decide they need home health, to notify her PCP and they will set it up for her, voiced understanding. Home today, denies needs. Roof Shingler: Magdalena Chavez DCPIA - Discharge Planning Initial Assessment Updated by [email or web address]: Magdalena Chavez on 10/09/19 4:41 pm * Is the patient Alert and Oriented? Yes * How many steps to enter\\exit or inside your home? Ramp * PCP Jazmin Armstrong at Dr Chakraborty's office * Preadmission Environment Home with Family * ADLs Partial Dependent * Partial ADLs (Assistance needed) Ambulation * Equipment Bedside [facility] Bed Kevin Lift Other Rolling Walker * Other Equipment Rollator walker Bariatric Trapeze Handicapped accessible shower * List name and contact numbers for known caregivers / representatives who currently or will assist patient after discharge: Cindy [facility] - [phone] Davion Spouse - [phone] * Verbal permission to speak to the caregivers and representatives has been obtained from the patient. Yes * Community resources currently utilized None * Additional services required to return to the preadmission environment? No * Can the patient safely return to the preadmission environment? Yes * Has this patient been hospitalized within the prior 30 days at any hospital? No Last DP export: 10/09/19 3:47 p Patient Name: MATEUSZ ORONA Page [id number] at 0830 All edits/amendments must be made on the electronic document DICTATION DATE: 10/10/19828 ENFORCEMENT SAFETY OFFICER: AIMEE 10/10/19828 RPT#: [id number] DC DATE:10/09/19 STATUS: DIS IN [facility] [address] [place] [address] END OF REPORT
== END 2019-10-09 17:15 | disposition home or self-care (01) | DRG 512 ==
LOC: D.ER 19:34 → D.MS 21:02
PROVIDERS: Family Medicine; Orthopaedic Surgery; ADMIT Family Medicine; ATTEND Family Medicine
PROC: 0PSH04Z Reposition Right Radius with Internal Fixation Device, Open Approach (ICD-10-PCS; principal; 2019-10-08 07:16)
DX: S52.501A Unspecified fracture of the lower end of right radius, initial encounter for closed fracture (principal); E03.9 Hypothyroidism, unspecified; I10 Essential (primary) hypertension; K21.9 Gastro-esophageal reflux disease without esophagitis

== ENCOUNTER → 2019-11-17 10:54 | Outpatient (CLI) | payer MEDICARE, OTHER ==
[2019-10-07 23:39] VITALS: BMI 28.2
[~2019-11-17 10:54] MED LIST changes: +MELATONIN 3 MG1 TAB PO; +MULTI-DAY VITAM1 TAB PO; +SYNTHROID50 MCG PO
== END | disposition home or self-care (01) ==
LOC: D.NM 10:54
PROVIDERS: ATTEND Orthopaedic Surgery
DX: M25.522 Pain in left elbow (principal)

== ENCOUNTER → 2019-12-20 07:45 | Outpatient (CLI) | payer MEDICARE, OTHER ==
[2019-10-07 23:39] VITALS: BMI 28.2
== END | disposition home or self-care (01) ==
LOC: D.RAD 07:45
PROVIDERS: ATTEND Internal Medicine Gastroenterology
DX: R11.0 Nausea (principal); R10.13 Epigastric pain; R14.0 Abdominal distension (gaseous)

== ENCOUNTER → 2020-01-07 08:55 | Outpatient (CLI) | payer MEDICARE, OTHER ==
[2019-10-07 23:39] VITALS: BMI 28.2
== END | disposition home or self-care (01) ==
LOC: D.LAB
PROVIDERS: ATTEND Internal Medicine Gastroenterology
DX: R11.0 Nausea (principal); R14.0 Abdominal distension (gaseous)

== ENCOUNTER 2020-01-18 13:32 | Outpatient (CLI) | payer MEDICARE, OTHER ==
[~2020-01-18] VITALS: Ht 170.2 cm; Wt 85.0 kg
[2020-01-18 13:53] VITALS: BP 129/74; Ht 170.2 cm; Wt 85.0 kg
== END 2020-01-18 14:01 | disposition home or self-care (01) ==
LOC: D.OPS 13:32
PROVIDERS: ATTEND Nurse Practitioner Family
DX: M81.0 Age-related osteoporosis without current pathological fracture (principal)

== ENCOUNTER 2020-01-28 20:31 | Observation (INO) | payer MEDICARE, OTHER ==
[~2020-01-28] VITALS: Ht 170.2 cm; Wt 88.2 kg
[2020-01-28 20:45] LABS: BASOPHILS 0.2 % (0-2); EOSINOPHILS 1.5 % (0-7); HEMATOCRIT 40.5 % (36.0-48.0); HEMOGLOBIN 13.6 g/dL (12-16); IMMATURE GRANULOCYTES 0.2 % (0-5); LYMPHOCYTES 43.6 % (15-50); MCH 33.3 pg (26.0-34.0); MCHC 33.6 g/dL (31.0-37.0); MEAN PLATELET VOLUME 9.5 fL (7.4-10.4); MONOCYTES 10.3 % (2-11); NEUTROPHILS 44.2 % (40-80); PLATELET COUNT 193 10x3/uL (130-400); RBC 4.09 10x6/uL (4.00-5.40); RDW 13.2 % (11.5-14.5); WBC 4.8 10x3/uL (4.8-10.8)
[2020-01-28] MEDS ORDERED: ZYPREXA2.5 MG PO (20:45)
[2020-01-28] MEDS ORDERED: VOLTAREN100 GM TOPICAL (20:46)
[2020-01-28 20:54] LABS: APTT 30.1 SECONDS (22.8-39.4); CALC OSMOLALITY 287 mosm/kg (275-300); CALCIUM 9.5 mg/dL (8.5-10.1); CARBON DIOXIDE 25.7 mmol/L (21.0-32.0); CHLORIDE - SERUM 104 mmol/L (98-107); CREATININE - SERUM 1.1 mg/dL (0.6-1.3); GLUCOSE 115 mg/dL (74-106); INR 1.05 (0.85-1.17); POTASSIUM - SERUM 4.1 mmol/L (3.5-5.1); PROTIME 13.7 SECONDS (11.6-15.0); SODIUM 141 mmol/L (136-145); UREA NITROGEN 30 mg/dL (7-18); eGFR NON AFRICAN AMERICAN 50 mL/min (90-120)
[2020-01-28 20:55] LABS: D-DIMER-QUANTITATIVE 0.92 ug/mLFEU (0.20-0.54)
[2020-01-28 21:07] LABS: ALBUMIN 3.6 g/dL (3.4-5.0); ALKALINE PHOSPHATASE 105 U/L (30-120); ALT (SGPT) 26 U/L (10-68); BILIRUBIN - TOTAL 0.32 mg/dL (0.2-1.3); LIPASE 175 U/L (73-393); MAGNESIUM - SERUM 2.2 mg/dL (1.8-2.4); PRO BNP 49 pg/mL (0-450); PROTEIN - SERUM 6.5 g/dL (6.4-8.2); THYROID STIMULATING HORMONE 1.17 uIU/mL (0.36-3.74)
[2020-01-28 21:09] LABS: C-REACTIVE PROTEIN < 0.2 mg/dL (0.0-0.9); TROPONIN-I < 0.017 ng/mL (0.000-0.060)
[2020-01-28 22:41] LABS: BILIRUBIN NEGATIVE (NEGATIVE); KETONE NEGATIVE (NEGATIVE); NITRITE NEGATIVE (NEGATIVE); UROBILINOGEN NORMAL (NORMAL)
[2020-01-29 00:03] VITALS: BP 167/86
[2020-01-29 01:00] VITALS: BP 161/91
[2020-01-29 02:27] VITALS: BP 136/73; BMI 30.4
[2020-01-29 04:45] VITALS: BP 154/83
--- NOTE | 2020-01-29 06:38 | NUR ---
PT DENIES CHEST PAIN OR DISCOMFORT. SR IN THE 80'S. NO NEEDS EXPRESSED.
--- NOTE | 2020-01-29 07:50 | NUR ---
PT RESTING COMFORTABLY IN BED. A/O X4, RESP EVEN AND NONLABORED ON RA. RT HAND IV SL. PT REQUESTING SOMETHING TO EAT, INFORMED PT AND PT'S DAUGHTER THAT I WOULD CHECK TO SEE IF SHE COULD EAT AND WOULD GET HER A BREAKFAST TRAY IF SHE COULD EAT. PT DENIES ANY OTHER NEEDS AT THIS TIME. CALL LIGHT IN REACH, NAD NOTED, WILL CONTINUE TO MONITOR.
[2020-01-29 08:00] VITALS: BP 151/79
[2020-01-29] MEDS ORDERED: ACETAMINOPHEN500 M1 PO (09:11)
[2020-01-29] MEDS ORDERED: MIRALAX17 GM PO (09:12)
[2020-01-29] MEDS ORDERED: COLACE100 MG PO (09:13)
[2020-01-29] MEDS ORDERED: VITAMIN B-122500 MCG PO (09:14)
[2020-01-29] MEDS ORDERED: FLORAJEN3 CAPS460 MG PO (09:15)
[2020-01-29 11:38] VITALS: Ht 170.2 cm; Wt 88.2 kg
--- NOTE | 2020-01-29 14:30 | NUR ---
PER CARDIOLOGY PT CAN GO HOME.
--- NOTE | 2020-01-29 14:36 | NUR ---
PROVIDED VERBAL AND WRITTEN DISCHARGE TEACHING TO PT, WHO VERBALIZED UNDERSTANDING REGARDING TEACHING. D/C LT HAND IV WITH CATHETER TIP INTACT. HEART MONITOR REMOVED AND TAKEN TO TOURIST ESCORT. PT WILL NOTIFY NURSE WHEN READY FOR WHEELCHAIR.
--- NOTE | 2020-01-29 14:56 | NUR ---
WHEELED PT TO ER ENTRANCE WITH ALL BELONGINGS, NAD NOTED.
== END 2020-01-29 14:57 | disposition home or self-care (01) ==
LOC: D.ER 20:31 → OBSVTIME 23:50 → D.M2 23:50
PROVIDERS: Family Medicine; ADMIT Family Medicine; ATTEND Family Medicine
DX: R07.9 Chest pain, unspecified (principal); K21.0 Gastro-esophageal reflux disease with esophagitis; F41.9 Anxiety disorder, unspecified; R10.9 Unspecified abdominal pain; R53.1 Weakness; R00.2 Palpitations; K44.9 Diaphragmatic hernia without obstruction or gangrene

== ENCOUNTER 2020-07-24 12:15 | Outpatient (CLI) | payer MEDICARE, OTHER ==
[~2020-07-24] VITALS: Ht 170.2 cm; Wt 89.1 kg
[~2020-07-24 12:15] MED LIST changes: +ACETAMINOPHEN500 M1 PO; +MIRALAX17 GM PO; +VITAMIN B-122500 MCG PO; +ZYPREXA2.5 MG PO
[2020-07-24 12:50] VITALS: BP 145/82; Ht 170.2 cm; Wt 89.1 kg
--- NOTE | 2020-07-24 12:59 | NUR ---
PT LEAVING OPS AT THIS TIME NAD NOTED.
== END 2020-07-24 12:59 | disposition home or self-care (01) ==
LOC: D.OPS 12:15
PROVIDERS: ATTEND Family Medicine
DX: M81.0 Age-related osteoporosis without current pathological fracture (principal)

== ENCOUNTER 2020-08-02 12:50 | Observation (INO) | payer MEDICARE, OTHER ==
[~2020-08-02] VITALS: Ht 170.2 cm; Wt 88.6 kg
[2020-08-02] MEDS ORDERED: COREG 3.1253.125 MG PO (13:52)
[2020-08-02] MEDS ORDERED: LIDODERM 5 %1 PATCH TRANSDERM (13:54)
[2020-08-02] MEDS ORDERED: ZINC50 MG PO (13:55)
[2020-08-02] MEDS ORDERED: NASACORT10.8 ML NASAL (13:58)
[2020-08-02] MEDS ORDERED: VITAMIN D-40010 MCG PO (13:59)
[2020-08-02] MEDS ORDERED: CALCIUM 500 +1 EAC3 PO (14:00)
--- NOTE | 2020-08-02 14:06 | NUR ---
PT RECEIVED TO ROOM FROM ADMISSIONS. FAMILY AT BEDSIDE. [facility] DONE WITH LIST FROM OFFICE AND FAMILY PROVIDED. PT ASKING FOR SOMETHING TO EAT. TRAY ORDERED.
[2020-08-02 16:02] VITALS: BP 175/94; Ht 170.2 cm; Wt 88.6 kg
[2020-08-02 20:35] VITALS: BP 145/85
--- NOTE | 2020-08-02 23:30 | NUR ---
PT LAYING SUPINE IN BED. PT AAOX4, DAUGHTER AT THE BEDSIDE. PT GIVEN IV ACCESS IN RIGHT HAND. PT DENIES PAIN AT THIS TIME. PT WAS ABLE TO SWALLOW PILLS. SKIN INTACT. NSR ON MONITOR.
[2020-08-02 23:40] VITALS: BP 140/76
--- NOTE | 2020-08-03 07:30 | NUR ---
PT LYING IN BED WITH EYES CLOSED. RAISES TO VERBAL STIMULI. RESP EVEN AND UNLABORED. AAO X4. SALINE LOC TO RIGHT HAND. DAUGHTER AT BEDSIDE. PT DENIES PAIN OR ANY NEEDS AT THIS TIME. CALL LIGHT AND WATER WITHIN REACH. BED IN LOWEST POSITION. SIDE RAILS X2
[2020-08-03 08:23] VITALS: BP 154/93
[2020-08-03 11:51] VITALS: BP 142/82
--- NOTE | 2020-08-03 13:16 | HP ---
PATIENT: MATEUSZ ORONA MEDICAL RECORD: [id number] ACCOUNT: [id number] LOCATION:[address] : [birth year] ADMISSION DATE: 08/02/20 PCP: KIRAN GONZALEZ MD HISTORY AND PHYSICAL EXAMINATION DATE ASSIGNED TO OBSERVATION: 08/02/2020. CHIEF COMPLAINT: Extreme tiredness and weakness. HISTORY OF PRESENT ILLNESS: This 84-year-old female who was brought to my office about a week ago complaining of episodes of extreme tiredness and weakness that has been going on then for at least 10 days, maybe 2 weeks. She would wake up in the morning and just feel very tired and weak, just did not feel like she could move. She will be much better by mid afternoon and throughout the rest of the day and only to wake up the next morning and feels so tired. Her daughter had checked her blood pressure in the mornings and her systolic numbers were up in the 70s and diastolic around 110 with heart rates around 110. She had no history of heart trouble. She just had some lab work done in April in our office and it was all pretty normal. I asked the daughter to keep a diary of the patient's heart rate and blood pressure and see her back in a week. Over the weekend, her blood pressure remained high and I started carvedilol 3.125 mg twice a day. The patient came back in today with continued symptoms. In our office, her blood pressure was 120/84, heart rate was still elevated at 108. I had her come in yesterday and check some blood work. Her CBC was normal. Comprehensive metabolic panel nonfasting showed a glucose of 128, BUN of 30 and creatinine 1.05. Otherwise, comprehensive metabolic panel was fine. TSH was 2.63 and free T4 0.96. Today, her symptoms are still present and she just does not feel like she could go on another day, so she is admitted to observation and placed on telemetry to see if there are any arrhythmias or other abnormalities that we might be able to catch. PAST MEDICAL HISTORY: She has a history of anxiety and depression. She has had back pain. She has had some diverticulitis, history of kidney stones, hypothyroidism, meningioma, and the recent diagnosis of hypertension. PAST SURGICAL HISTORY: She has had cataract repair, cholecystectomy, thyroid nodule removed, and sigmoid colectomy with ileostomy, then a reversal back in 2018. She has had sinus surgery, ORIF of right wrist and salivary gland surgery. ALLERGIES: TO CODEINE, MORPHINE, AND SULFA. HABITS: Never smoked. No alcohol or drugs. SOCIAL HISTORY: , retired. FAMILY HISTORY: There was diabetes and cancer in her parents. Sibling with hypertension. Child with hypertension. REVIEW OF SYSTEMS: GENERAL: No major weight changes. HEENT: No particular sinus or allergy problems. RESPIRATORY: No history of emphysema or asthma. CARDIAC: No known coronary artery disease. She was admitted for less than 24 hours to [place] [facility] on 01/28/2020 for some chest pain. Her cardiac enzymes HISTORY AND PHYSICAL [id number] MATEUSZ ORONA were negative and EKG was unremarkable. Telemetry showed no ectopy and an echocardiogram then showed ejection fraction of approximately 50% with no wall motion abnormalities and no valvular changes. She was discharged home. GASTROINTESTINAL: No significant problems there. GENITOURINARY: Has a history of kidney stones. MUSCULOSKELETAL: He has had some low back pain. NEUROLOGIC: History of meningioma. No seizures. No migraines. PSYCHIATRIC: She has anxiety and depression and sees Dr. Garcia in [place]. PHYSICAL EXAMINATION: VITAL SIGNS: She is afebrile, temperature 97.7, pulse 94, respirations 18, blood pressure 175/94, O2 sat 98%. GENERAL: She does not appear in acute distress, but just states she is very weak. HEENT: Grossly within normal limits. NECK: Supple, no thyromegaly, no bruit. HEART: Regular rate and rhythm. LUNGS: Clear. ABDOMEN: Soft, flat, nontender. EXTREMITIES: No edema. NEUROLOGIC: Appears intact. ASSESSMENT: Tachycardia, hypertension, episodes of tiredness and weakness. PLAN: We will admit, place her on telemetry, monitor her blood pressure and heart rate. Other tests and procedures as warranted. TRANSINT:[id number] Voice Confirmation ID: [id number] DOCUMENT ID: [id number] KIRAN GONZALEZ MD at 1316 CC: [id number] DICTATION DATE: 08/02/202005 STERILE TECH: 08/02/202043 [place] [address]
== END 2020-08-03 15:30 | disposition home or self-care (01) ==
LOC: D.M2 12:50 → OBSVTIME 13:00 → D.M2 08-03 15:30
PROVIDERS: ADMIT Family Medicine; ATTEND Family Medicine
DX: R00.0 Tachycardia, unspecified (principal); I10 Essential (primary) hypertension; R53.1 Weakness; F41.9 Anxiety disorder, unspecified

== ENCOUNTER 2020-09-13 14:08 | Emergency (ER) | payer MEDICARE, OTHER ==
[~2020-09-13] VITALS: Ht 170.2 cm; Wt 94.8 kg
[~2020-09-13 14:08] MED LIST changes: +CALCIUM 500 +1 EAC3 PO; +COREG 3.1253.125 MG PO; +LIDODERM 5 %1 PATCH TRANSDERM; +NASACORT10.8 ML NASAL; +VITAMIN D-40010 MCG PO; +ZINC50 MG PO
[2020-09-13 14:14] VITALS: Ht 170.2 cm; Wt 94.8 kg
[2020-09-13] MEDS ORDERED: LYRICA25 MG PO (14:17)
[2020-09-13 15:10] LABS: BASOPHILS 0 % (0-2); EOSINOPHILS 1.1 % (0-7); HEMATOCRIT 43.2 % (36.0-48.0); HEMOGLOBIN 14.3 g/dL (12-16); IMMATURE GRANULOCYTES 0.4 % (0-5); LYMPHOCYTE ABS# 1.08 10x3/uL (1.18-3.74); LYMPHOCYTES 23.4 % (15-50); MCH 32.4 pg (26.0-34.0); MCHC 33.1 g/dL (31.0-37.0); MEAN PLATELET VOLUME 9.7 fL (7.4-10.4); MONOCYTES 6.9 % (2-11); NEUTROPHIL ABS# 3.15 10x3/uL (1.56-6.13); NEUTROPHILS 68.2 % (40-80); PLATELET COUNT 201 10x3/uL (130-400); RBC 4.41 10x6/uL (4.00-5.40); RDW 13.4 % (11.5-14.5); WBC 4.6 10x3/uL (4.8-10.8)
[2020-09-13 15:17] LABS: CALC OSMOLALITY 286 mosm/kg (275-300); CALCIUM 9.9 mg/dL (8.5-10.1); CARBON DIOXIDE 32.1 mmol/L (21.0-32.0); CHLORIDE - SERUM 104 mmol/L (98-107); GLUCOSE 146 mg/dL (74-106); POTASSIUM - SERUM 4.5 mmol/L (3.5-5.1); SODIUM 140 mmol/L (136-145); UREA NITROGEN 27 mg/dL (7-18); eGFR NON AFRICAN AMERICAN 56 mL/min (90-120)
[2020-09-13 15:35] LABS: ALBUMIN 3.3 g/dL (3.4-5.0); ALKALINE PHOSPHATASE 62 U/L (30-120); ALT (SGPT) 26 U/L (10-68); BILIRUBIN - TOTAL 0.21 mg/dL (0.2-1.3); LIPASE 174 U/L (73-393); PROTEIN - SERUM 6.7 g/dL (6.4-8.2); TROPONIN-I < 0.017 ng/mL (0.000-0.060)
[2020-09-13 15:45] LABS: BILIRUBIN NEGATIVE (NEGATIVE); KETONE NEGATIVE (NEGATIVE); NITRITE NEGATIVE (NEGATIVE); UROBILINOGEN NORMAL mg/dL (< 2)
[2020-09-13 16:54] VITALS: BP 146/90
== END 2020-09-13 17:28 | disposition home or self-care (01) ==
LOC: D.ER 14:08
PROVIDERS: Emergency Medicine
DX: R11.0 Nausea (principal); I10 Essential (primary) hypertension; K21.9 Gastro-esophageal reflux disease without esophagitis

== ENCOUNTER 2020-09-24 05:26 | Day surgery (SDC) | payer MEDICARE, OTHER ==
[~2020-09-24] VITALS: Ht 170.2 cm; Wt 96.8 kg
[~2020-09-24 05:26] MED LIST changes: +LYRICA25 MG PO
[2020-09-24 06:04] LABS: BASOPHILS 0.2 % (0-2); HEMATOCRIT 46.1 % (36.0-48.0); HEMOGLOBIN 15.3 g/dL (12-16); IMMATURE GRANULOCYTES 0.2 % (0-5); LYMPHOCYTE ABS# 1.05 10x3/uL (1.18-3.74); LYMPHOCYTES 21.3 % (15-50); MCH 32.6 pg (26.0-34.0); MCHC 33.2 g/dL (31.0-37.0); MCV 98.3 fL (80.0-100.0); MONOCYTES 7.7 % (2-11); NEUTROPHIL ABS# 3.39 10x3/uL (1.56-6.13); NEUTROPHILS 68.6 % (40-80); PLATELET COUNT 208 10x3/uL (130-400); RBC 4.69 10x6/uL (4.00-5.40); WBC 4.9 10x3/uL (4.8-10.8)
[2020-09-24 06:17] LABS: ANION GAP 14.4 mmol/L (8-16); CALCIUM 8.5 mg/dL (8.5-10.1); CARBON DIOXIDE 27.1 mmol/L (21.0-32.0); POTASSIUM - SERUM 3.5 mmol/L (3.5-5.1)
[2020-09-24 06:48] VITALS: Ht 170.2 cm; Wt 96.8 kg
--- NOTE | 2020-09-24 09:20 | NUR ---
F/U APPT MADE, DC INSTRUCTIONS GIVEN TO PT AND DAUGHTER, VERBALIZED UNDERSTANDING. 0941 PIV DC'D, CATHETER INTACT, DAUGHTER HELPING PT TO GET DRESSED. 0980 PT DC'D VIA WC WITH ALL BELONGINGS AND DC PACKET TO POV WITH DRIVING.
== END 2020-09-24 09:47 | disposition home or self-care (01) ==
LOC: D.OPS 05:26
PROVIDERS: Anesthesiology; ATTEND Surgery
DX: K59.00 Constipation, unspecified (principal); K21.00 Gastro-esophageal reflux disease with esophagitis, without bleeding; R14.0 Abdominal distension (gaseous); M33.29 Polymyositis with other organ involvement; K62.89 Other specified diseases of anus and rectum; K57.30 Diverticulosis of large intestine without perforation or abscess without bleeding; K29.70 Gastritis, unspecified, without bleeding; K44.9 Diaphragmatic hernia without obstruction or gangrene

== ENCOUNTER → 2020-10-03 07:31 | Outpatient (CLI) | payer MEDICARE, OTHER ==
[2020-09-24 06:48] VITALS: BMI 33.4
== END | disposition home or self-care (01) ==
LOC: D.CT 07:31
PROVIDERS: ATTEND Surgery
DX: K57.30 Diverticulosis of large intestine without perforation or abscess without bleeding (principal)

== ENCOUNTER 2020-11-12 05:50 | Inpatient (IN) | payer MEDICARE, OTHER ==
[2020-11-08 15:43] LABS: BASOPHILS 0.5 % (0-2); EOSINOPHILS 1.2 % (0-7); HEMOGLOBIN 14.8 g/dL (12-16); LYMPHOCYTES 25.4 % (15-50); MCH 32.8 pg (26.0-34.0); MCHC 33.6 g/dL (31.0-37.0); MCV 97.6 fL (80.0-100.0); MEAN PLATELET VOLUME 8.1 fL (7.4-10.4); NEUTROPHILS 64.9 % (40-80); PLATELET COUNT 192 10x3/uL (130-400); RBC 4.51 10x6/uL (4.00-5.40); RDW 13.9 % (11.5-14.5); WBC 4.9 10x3/uL (4.8-10.8)
[2020-11-08 15:59] LABS: CALCIUM 9.2 mg/dL (8.5-10.1); CARBON DIOXIDE 31.4 mmol/L (21.0-32.0); POTASSIUM - SERUM 4.4 mmol/L (3.5-5.1)
[~2020-11-12] VITALS: Ht 170.2 cm; Wt 99.8 kg
[~2020-11-12 05:50] MED LIST changes: +ASCORBIC ACID500 MG PO; -COREG 3.1253.125 MG PO; +COREG6.25 MG PO; +OMEPRAZOLE20 M1 PO; +SALONPAS TOPICAL; +VITAMIN D325 MC1 PO
[2020-11-12 06:24] VITALS: BMI 33.4
--- NOTE | 2020-11-12 08:25 | NUR ---
FOELY CATHETER ATTEMPTED BUT UNABLE TO CATHERIZE-SH
--- NOTE | 2020-11-12 11:00 | NUR ---
PT PAIN LEVEL HAS BEEN CONSISTENTLY HIGH. PT REFUSED THE PRESCRIBED TYLENOL WITH CODEINE D/T ADVERSE REACTION OF IT KEEPING HER AWAKE. PT SLEEPING IN BETWEEN ASSESSMENTS, NOT APPEARING TO BE IN PAIN, EASILY AROUSED. SPOKE WITH DR. PULLIAM IN [facility] REGARDING PAIN MEDICATION. UPON HIS REQUEST THIS NURSE TALKED WITH PT AND DAUGHTER TO ASK WHAT WORKS FOR PT AT HOME. EXTRA STRENGTH TYLENOL WAS SUGGESTED. [address] PULLIAM APPROVAL OF ORDER OF EXTRA STRENGTH TYLENOL. 1309 LUNCH TRAY ORDERED FOR PT 1355 DR PULLIAM IN [facility], APPROVED ORDER FOR EXTRA STRENGTH TYLENOL. 1400 DR PULLIAM AT BEDSIDE 1410 INCENTIVE SPIROMETER REVIEWED AND INITIATED WITH PT. 1506 THIS NURSE CALLED REPORT TO ERICA PELAYO FOR TRANSFERING PT TO FLOOR FOR OBSERVATION, ROOM 2224 1520 ERICA SALAZAR TRANSFERRED PT TO ROOM 2224
[2020-11-12 16:07] VITALS: BP 125/70
--- NOTE | 2020-11-12 18:29 | NUR ---
PATIENT DAYUGHTER CAME TO NURSING DESK WANTING TO KNOW WHEN PATIENT WOULD BE GIVEN NIGHT TIME MEDICATIONS SAYING SHE HAS TO HAVE HER MEDICATIONS NIGHTLY, MEDICATIONS HAVE NOT BEEN RESTARTED, PLACED ORDER FOR MEDICAL MANAGEMENT FOR DR GONZALEZ TO LOOK AT EMDICATIONS AND REEVALUATE IF PATIENT NEEDS TO BE RESTARTED ON THEM
--- NOTE | 2020-11-12 19:45 | NUR ---
RECEIVED BEDSIDE REPORT. RESTING IN HIGH FOWLERS, AWAKE ALERT AND ORIENTED X 4. NO C/O PAIN OR DISTRESS NOTED. PIV TO RIGHT WRIST INFUSING, DRESSING CLEAN/DRY/INTACT. SURGICAL INSCISION TO ABDOMEN WITH DRESSING CLEAN DRY AND INTACT. ABDOMINAL BINDER IN PLACE. EDCUATION PROVIDED WITH I/S, SPLINTING, AND TURN/COUGH/DEEP BREATHING. CALL LIGHT IN REACH, BED LOCKED IN LOW POSITION.
[2020-11-12 20:00] VITALS: BP 129/69
[2020-11-12 20:45] VITALS: BMI 34.5
[2020-11-13 04:00] VITALS: BP 136/75
--- NOTE | 2020-11-13 05:23 | NUR ---
PAGED MD GONZALEZ ABOUT PT MED ATIVAN. AWAITING CALL BACK.
--- NOTE | 2020-11-13 05:35 | NUR ---
RECIEVED CALL BACK FROM DR. GONZALEZ AND ATIVAN 0.5MG PO TID OKAY TO RESTART.
--- NOTE | 2020-11-13 08:30 | NUR ---
PT. RECEIVED RESTING IN BED, ALERT AND ORIENTED, TALKATIVE. ABDOMINAL INCISION MIDLINE DRESSING DRY AND INTACT. BINDER IN PLACE. IV INFUSING TO R. HAND. NO DISTRESS. CL IN REACH. SRUPX2
[2020-11-13 09:00] VITALS: BP 135/72
[2020-11-13 13:00] VITALS: BP 133/70
--- NOTE | 2020-11-13 13:07 | NUR ---
I have reviewed this patient and I concur with the Shift Assessment completed by the Licensed Practical Nurse today this shift.
[2020-11-13 14:57] VITALS: Ht 170.2 cm; Wt 99.8 kg
[2020-11-13 16:00] VITALS: BP 116/72
[2020-11-13 20:00] VITALS: BP 150/76
[2020-11-14 11:03] VITALS: BP 151/84
--- NOTE | 2020-11-14 16:20 | NUR ---
I have reviewed this patient and I concur with the Shift Assessment completed by the Licensed Practical Nurse today this shift.
--- NOTE | 2020-11-14 16:48 | NUR ---
OT NOTE: PT DOING BETTER TODAY.. STILL REQUIRES MOD ASSIST WITH SUPINE TO SIT; MOD ASSIST WITH TOILET TRANSFERS AND TOILETING; ABLE TO AMB INTO HALLWAY TODAY WITH RW AND FEWER VERBAL CUES.. FATIGUES QUICKLY; POOR SAFETY WHEN FATIGUED; RECOMMEND IP REHAB PRIOR TO DC HOME. REBECCA ANDREW, OTR/L [id number]
[2020-11-14 16:55] VITALS: BP 162/101
[2020-11-14 20:00] VITALS: BP 136/71
--- NOTE | 2020-11-14 20:00 | NUR ---
ALERT SITTING UP IN BED DENIES NEEDS AT THSI TIME, SEE SHIFT ASSESSMENT, CALL LIGHT IN REACH, DAUGHTER AT BEDSIDE, ABD BINDER IN PLACE
[2020-11-15] VITALS: BP 139/75
[2020-11-15 04:00] VITALS: BP 153/82
--- NOTE | 2020-11-15 07:10 | NUR ---
PT IS SITTING ON BSC. DAUGHTER AT BEDSIDE. PT AND PT DAUGHTER REPORT LOOSE/WATERY STOOL. PT DENIES PAIN WITH DEFECATION. ABDOMINAL BINDER INPLACE AND CDI. PIV TO RIGHT FA PER ORDER WITHOUT COMPROMISE. BS ACTIVE X 4. BED IS IN THE LOWEST POSITION. CALL LIGHT AND BEDSIDE TABLE ARE WITHIN REACH. SIDE RAILS X 2. PT AND PT DAUGHTER DENY FURTHER NEEDS AND DENY NEEDING ASSISTANCE FOR RETURNING TO BED FROM BSC. WILL CONT TO MONITOR.
[2020-11-15 09:11] VITALS: BP 157/88
[2020-11-15 11:32] VITALS: BP 166/93
--- NOTE | 2020-11-15 12:04 | NUR ---
ATTEMPT MADE TO GO OVER DC INSTRUCTIONS WITH PT AND PT DAUGHTER. PT DAUGHTER REQUESTS TO SPEAK WITH CM PERTAINING TO HOME HEALTH FOR DRESSING CARE AND PT FOR ASSISTANCE WHEN AT HOME. REBECCA WITH CM NOTIFIED. DC INSTRUCTIONS ARE HELD AT THIS TIME PER PT DAUGHTER REQUEST.
--- NOTE | 2020-11-15 12:30 | NUR ---
PT RECEIVING BED BATH AND REPORTS IRRITATION TO ABDOMINAL AREA AT TEGADERM SITE. REDNESS NOTED AT EDGES OF TEGADERM WITH MINIMAL BLISTERING NOTED. PT REPORTS TENDERNESS TO AREA. DR PULLIAM NOTIFIED AND TELEPHONE ORDERS RECD TO REDRESS ABDOMINAL INCISION WITH 4X4 AND PRESSURE DRESSING. WILL CHANGE DRESSING DIRECTED.
--- NOTE | 2020-11-15 15:25 | NUR ---
DRESSING TO ABDOMEN CHANGED PER TELEPHONE ORDER FROM DR PULLIAM. PT TOLERATED WELL. 4X4 DRESSING PLACED FOR PRESSURE DRESSING AND CLEAR ADHESIVE USED TO HOLD PRESSURE FOR PRESSURE DRESSING. NEW ABD BINDER IS PLACED. BED IS IN THE LOWEST POSITION. CALL LIGHT AND BEDSIDE TABLE ARE WITHIN REACH. SIDE RAILS X 2. PT AND PT DAUGHTER DENY FURTHER NEEDS. WILL CONT TO MONITOR.
--- NOTE | 2020-11-15 16:40 | NUR ---
ALL DISCHARGE INSTRUCTIONS COVERED WITH PT AND PT DAUGHTER. BOTH WRITTEN AND VERBAL. PT REQUESTS FOR DAUGHTER TO SIGN ALL DC PAPERS. PT DAUGHTER SIGNS ALL DC PAPERS. PIV TO RIGHT FA REMOVED WITH CATHETER TIP INTACT. DRESSING APPLIED. PT REQUESTS TO EAT DINNER AND THEN GO HOME. PT DAUGHTER TO NOTIFY NURSE WHEN READY FOR TRANSPORT HOME. PT AND PT DAUGHTER DENY FURTHER QUESTIONS/CONCERNS/NEEDS AT THIS TIME. WILL CONT TO MONITOR.
[2020-11-15 17:39] VITALS: BP 106/54; BP 147/68
--- NOTE | 2020-11-15 18:20 | NUR ---
PT DAUGHTER AT [place] READY TO TRANSPORT PT HOME. PT ESCORTED FROM ROOM VIA WHEELCHAIR BY THIS NURSE. PT THANKS THIS NURSE FOR CARE GIVEN DURING THIS SHIFT. PT DENIES FURTHER QUESTIONS/CONCERNS/NEEDS. PT STATES THAT DAUGHTER HAS ALREADY TAKEN ALL PERSONAL BELONGINGS AND THERE ARE NO FURTHER PERSONAL ITEMS LEFT IN ROOM.
--- NOTE | 2020-11-15 22:53 | NUR ---
OT NOTE: PT COMPLETED ADL MOBILITY WITH MOD A. PT REQUIRED MAX A FOR SIT TO SUPINE IN BED. CL IN REACH. DAUGHTER AT BEDSIDE. [id number] IDA [place]
--- NOTE | 2020-11-18 18:34 | MORECARE ---
CASE MANAGEMENT DISCHARGE SUMMARY PATIENT: MATEUSZ ORONA UNIT: [id number] ADM DATE: 11/13/20 AGE: 85 : 37 SEX: F ROOM/BED: D.2224 AUTHOR: KEN,DOC PHYSICIAN: REFERRING PHYSICIAN: PRATIMA PULLIAM MD DATE OF SERVICE: 11/18/20 Case Management Discharge Planning Summary COMMENTS ENTERED DATE: 11/15/20 13:44 CT COMMENT TYPE: Discharge Planning REVIEWER: Nadia Chavez SPOKE WITH PATIENT AND HER DAUGHTER ABOUT DC PLANNING/NEEDS. SHE STATES SHE NEEDS HOME HEALTH ADN WOULD LIKE TO USE [facility]. I AM FAXING REFERRAL AND ORDER TO [facility] AND WAITING CALL BACK TO SEE IF THEY CAN ACCEPT HER OR NOT. PATIENT PLANS TO DC TO HOME TODAY WITH FAMILY. I SPOKE WITH DOCTOR HERACLIO AND HE AGREES WITH THE PLAN. CM TO FOLLOW AND ASSIST NEEDED. DCP REVIEW SUMMARY ANTICIPATED D/C DATE: EXPECTED LOS : CASE STATUS: DCP Complete INITIAL REVIEW: 11/12/2020 INITIAL REVIEWER: Jade Hart FINAL DISCHARGE DISPOSITION: : FINAL REVIEWER: FINAL REVIEW DATE: DCP [employer] Questions [employer] Answers QUESTION: ANSWER : PROVIDER NETWORKING REVIEW DATE: 11/15/2020 SERVICE TYPE: Home Health Care REVIEWER: Nadia Chavez PATIENT: MATEUSZ ORONA ENCOUNTER: [id number] MEDICAL RECORD#: [id number] ADMISSION DATE: 11/13/2020 DISCHARGE DATE: 11/15/2020 ATTENDING MD: DANNI: [id number] AGE: 85 MARITAL STATUS: M DC PLAN ID: [id number] FACILITY: [facility] PRINTED ON: 11/18/20 18:34 CT All edits/amendments must be made on the electronic document DICTATION DATE: 11/18/201833 BROADCAST OPERATIONS TECHNICIAN: DM 11/18/20 183 RPT#: [id number] DC DATE:11/15/20 STATUS: DIS IN [facility] [address] [place] [address] END OF REPORT
== END 2020-11-15 18:24 | disposition home health service (06) | DRG 355 ==
LOC: D.OPS 05:50 → D.MS 15:50 → OBSVTIME 15:51 → D.MS 11-13 16:32
PROVIDERS: Anesthesiology; ADMIT Surgery; ATTEND Surgery
PROC: 0WUF0JZ Supplement Abdominal Wall with Synthetic Substitute, Open Approach (ICD-10-PCS; principal; 2020-11-12 08:00)
DX: K43.6 Other and unspecified ventral hernia with obstruction, without gangrene (principal); M62.08 Separation of muscle (nontraumatic), other site; N35.92 Unspecified urethral stricture, female; R00.0 Tachycardia, unspecified; I10 Essential (primary) hypertension; F41.9 Anxiety disorder, unspecified; E66.01 Morbid (severe) obesity due to excess calories